=== PATIENT | male | born 1980 | race Caucasian/White ===

== ENCOUNTER 2016-08-24 21:04 | Inpatient (IN) | payer OTHER ==
[~2016-08-24] VITALS: Ht 165.1 cm; Wt 86.4 kg
[2016-08-24] MEDS ORDERED: SODIUM CHLORIDE 0.9% 1L BAG IV* STA (21:47)
[2016-08-24] MEDS ORDERED: ACETAMINOPHEN 325 MG TAB PO STA (21:47)
[2016-08-24 22:19] LABS: ADD SCAN DIFF NO
[2016-08-24 22:22] LABS: ADD UMIC YES; URINE BILIRUBIN (Dip) NEGATIVE (NEGATIVE); URINE BLOOD (Dip) 2+ (NEGATIVE); URINE COLOR LT. YELLOW (YELLOW); URINE GLUCOSE (Dip) NEGATIVE (NEGATIVE); URINE KETONES (Dip) NEGATIVE (NEGATIVE); URINE LEUKOCYTE ESTERASE (Dip) NEGATIVE (NEGATIVE); URINE NITRITE (Dip) NEGATIVE (NEGATIVE); URINE TOTAL PROTEIN (Dip) TRACE (NEGATIVE); URINE UROBILINOGEN (Dip) 1.0 E.U./dL (0.1-1.0)
[2016-08-24 22:23] LABS: ABNORMAL IP MESSAGE 1; BASOPHILS % 0.3 % (0.0-2.0); EOSINOPHILS % 0.2 % (0.0-7.0); HEMATOCRIT 29.2 % (42.0-52.0); HEMOGLOBIN 8.2 g/dl (14.0-18.0); LYMPHOCYTES # 1.4 10^3/ul (0.8-2.9); LYMPHOCYTES % 11.6 % (15.0-51.0); MEAN CORPUSCULAR HEMOGLOBIN 19.3 pg (29.0-33.0); MEAN CORPUSCULAR HGB CONC 28.1 g/dl (32.0-37.0); MEAN CORPUSCULAR VOLUME 68.9 fl (82.0-101.0); MEAN PLATELET VOLUME 9.2 fl (7.4-10.4); MONOCYTE # 0.5 10^3/ul (0.3-0.9); MONOCYTES % 4.3 % (0.0-11.0); NEUTROPHIL # 10.3 10^3/ul (1.6-7.5); NEUTROPHILS % 83.2 % (39.0-77.0); PLATELET COUNT 626 10^3/UL (140-415); RED BLOOD COUNT 4.24 10^6/ul (4.70-6.10); RED CELL DISTRIBUTION WIDTH 17.6 % (11.5-14.5); WHITE BLOOD COUNT 12.4 10^3/ul (4.8-10.8)
[2016-08-24 22:35] LABS: INR 1.15; PROTIME 14.7 Sec (12.2-14.2); PT RATIO 1.1
[2016-08-24 22:36] LABS: PARTIAL THROMBOPLASTIN TIME 37.7 Sec (25.0-35.0)
[2016-08-24 22:41] LABS: ALANINE AMINOTRANSFERASE 30 IU/L (13-69); ALBUMIN 4.2 g/dl (3.3-4.9); ALKALINE PHOSPHATASE 100 IU/L (42-121); ANION GAP 16 (8-16); ASPARTATE AMINO TRANSFERASE 21 IU/L (15-46); BILIRUBIN,INDIRECT 0.2 mg/dl (0-1.1); BILIRUBIN,TOTAL 0.2 mg/dl (0.2-1.3); BLOOD UREA NITROGEN 9 mg/dl (7-20); CALCIUM 8.8 mg/dl (8.4-10.2); CARBON DIOXIDE 22 mmol/L (21-31); CHLORIDE 106 mmol/L (97-110); CREATININE 0.76 mg/dl (0.61-1.24); GLUCOSE 90 mg/dl (70-220); POTASSIUM 4.1 mmol/L (3.5-5.1); SODIUM 140 mmol/L (135-144); TOTAL PROTEIN 8.4 g/dl (6.1-8.1)
[2016-08-24 22:55] LABS: TROPONIN-I < 0.012 ng/ml (0.00-0.12)
--- NOTE | 2016-08-24 23:07 | RADRPT ---
PROCEDURE: XR Chest. CLINICAL INDICATION: Possible sepsis. TECHNIQUE: Portable AP upright view of the chest was obtained. COMPARISON: None. FINDINGS: The cardiomediastinal silhouette is within normal limits. Diffuse opacification of the left lung is present with elevation of the left hemidiaphragm. Additional infiltrate within the right lung is p resent to a lesser degree. Left pleural thickening in the apical region is suspected without eviden ce of pleural effusion. There is no evidence of pneumothorax. The osseous structures are intact wi th no evidence for acute abnormality. RPTAT:HJJR IMPRESSION: Diffuse pulmonary infiltrates in the left greater than right lung concerning for pneumonia with left lung volume loss and elevation of the left hemidiaphragm as well as left pleural thickening. Left hemithorax findings may in part be chronic however, as no previous studies are available, follow-up evaluation is recommended. Physician Kenny Date Time Electronically viewed and signed by Physician Kenny on 08/24/2016 23:07 JR/
[2016-08-25 00:20] VITALS: TEMP 100.7
[2016-08-25] MEDS ORDERED: LEVOFLOXACIN 500MG/D5W (PMX) 100 ML IVPB ONE (00:30)
--- NOTE | 2016-08-25 00:58 | ERD ---
ER Documentation Chief Complaint Date/Time DATE: 08/25/16 TIME: 00:52 Chief Complaint FEVER BEGAN 2 HOURS,SOB, SOMETHING "STUCK IN THROAT", COUGH PHLEGM HPI This is a 35-year-old male presents to the ER with a cough for the last 4 months. Cough is severe and constant, productive in nature. Patient states that his cough is so severe that he vomits. Denies any hemoptysis. Patient states that he has had fevers, night sweats and chills as well. Patient admits to weight loss. He has lost over 20 pounds in the last 4 months. Patient states that he feels tired. Patient went to a local clinic where he received 3 different shots, he does not know what shots they are however they did not help his symptoms. Patient is now complaining of shortness of breath. He also admits to chest pain while coughing. Patient denies any recent travel he denies any leg pain or leg swelling. He denies any IV drug use. There are no sick contacts at home and he denies any smoking. ROS 12 point review of systems was done, all negative except per HPI. Allergies Allergies: Coded Allergies: No Known Drug Allergies (Verified Allergy, Unknown, 08/24/16) PMhx/Soc Medical and Surgical Hx: pt denies Medical Hx, pt denies Surgical Hx Hx Alcohol Use: No Hx Substance Use: No Hx Tobacco Use: No Smoking Status: Never smoker Physical Exam Vitals Vital Signs Date Time Temp Pulse Resp B/P Pulse Ox O2 Delivery O2 Flow Rate FiO2 08/25/16 00:20 100.7 98 21 132/76 95 Room Air 08/24/16 22:31 103.0 130 08/24/16 21:22 105.0 130 17 158/85 98 Physical Exam GENERAL: The patient is well developed and appropriate for usual state of health , in no apparent distress. HEENT: Atraumatic. Conjunctivae are pink. Pupils equal, round, and reactive to light. Extraocular muscles are grossly intact. Bilateral tympanic membranes are clear with no evidence of erythema, effusion or dulling of the light reflex. The oropharynx is clear with no erythema or exudates. NECK: C-spine is soft and supple. There is no cervical lymphadenopathy. CHEST: Clear to auscultation bilaterally. There are no rales, wheezes or rhonchi. No pleural friction rub, no tripoding. Able to speak in full sentences. HEART: Regular rate and rhythm. No murmurs, clicks, rubs or gallops. NEURO: Alert and oriented. SKIN: There is no apparent rash or petechia. The skin is warm and dry. No cyanosis Result Diagram: 08/24/16220408/24/162204 Results 24 hrs Laboratory Tests Test 08/24/16 22:05 White Blood Count 12.410^3/ul Red Blood Count 4.2410^6/ul Hemoglobin 8.2g/dl Hematocrit 29.2% Mean Corpuscular Volume 68.9fl Mean Corpuscular Hemoglobin 19.3pg Mean Corpuscular Hemoglobin Concent 28.1g/dl Red Cell Distribution Width 17.6% Platelet Count 42870^3/UL Mean Platelet Volume 9.2fl Neutrophils % 83.2% Lymphocytes % 11.6% Monocytes % 4.3% Eosinophils % 0.2% Basophils % 0.3% Nucleated Red Blood Cells % 0.0/100WBC Neutrophils # 10.310^3/ul Lymphocytes # 1.410^3/ul Monocytes # 0.510^3/ul Eosinophils # 0.010^3/ul Basophils # 0.010^3/ul Nucleated Red Blood Cells # 0.010^3/ul Prothrombin Time 14.7Sec Prothrombin Time Ratio 1.1 INR International Normalized Ratio 1.15 Activated Partial Thromboplast Time 37.7Sec Urine Color LT. YELLOW Urine Clarity CLEAR Urine pH 6.0 Urine Specific [place] 1.010 Urine Ketones NEGATIVE Urine Nitrite NEGATIVE Urine Bilirubin NEGATIVE Urine Urobilinogen 1.0 E.U./dL Urine Leukocyte Esterase NEGATIVE Urine Microscopic RBC 2-5/HPF Urine Microscopic WBC 0-2/HPF Urine Hemoglobin 2+ Urine Glucose NEGATIVE% Urine Total Protein TRACE Sodium Level 140mmol/L Potassium Level 4.1mmol/L Chloride Level 106mmol/L Carbon Dioxide Level 22mmol/L Anion Gap 16 Blood Urea Nitrogen 9mg/dl Creatinine 0.76mg/dl Glucose Level 90mg/dl Lactic Acid Level 1.8mmol/L Calcium Level 8.8mg/dl Total Bilirubin 0.2mg/dl Direct Bilirubin 0.00mg/dl Indirect Bilirubin 0.2mg/dl Aspartate Amino Transf (AST/SGOT) 21IU/L Alanine Aminotransferase (ALT/SGPT) 30IU/L Alkaline Phosphatase 100IU/L Troponin I < 0.012ng/ml Total Protein 8.4g/dl Albumin 4.2g/dl Globulin 4.20g/dl Albumin/Globulin Ratio 1.00 HIV (1&2) Antibody NEGATIVE Current Medications Medications (Trade) Dose Ordered Sig/Reba Route PRN Reason Start Time Stop Time Status Last Admin Dose Admin Sodium Chloride (NS) 2,670 ml BOLUS OVER 2 HOURS STAT IV* 08/24/16 21:47 08/24/16 21:51 DC 08/24/16 22:01 Acetaminophen 650 mg 650 mg ONCE STAT PO 08/24/16 21:47 08/24/16 21:51 DC 08/24/16 22:02 Levofloxacin/ Dextrose 100 ml @ 100 mls/hr ONCE ONCE IVPB 08/25/16 00:30 08/25/16 00:42 DC Azithromycin 250 ml @ 250 mls/hr ONCE ONCE IVPB 08/25/16 01:00 08/25/16 01:59 Ceftriaxone Sodium (Rocephin) 50 ml @ 100 mls/hr ONCE ONCE IVPB 08/25/16 01:00 08/25/16 01:29 08/25/16 00:50 Procedures/MDM EKG was done [address] elevation or t wave inversion. Differential diagnosis includes but is not limited to upper respiratory infection, bronchitis, pneumonia, asthma, COPD, AAA, GERD pulmonary embolism, pneumothorax, pneumomediastinum, foreign body aspiration. this is a 35-year- old male presents to the ER with a four-month history of coughing. Patient is febrile in the ER and has an extensive pneumonia. Patient would benefit from admission. Rocephin and azithromycin were started in the ER, fever was controlled in the ER as well. Patient is not hypoxic or in any respiratory distress. He will be admitted into the hospital for further management and care. Departure Diagnosis: Primary Impression: Pneumonia Condition: ANJANA Dooley Aug 25, 2016 00:58
[2016-08-25] MEDS ORDERED: AZITHROMYCIN 500MG/NS (PMX) 250 ML IVPB ONE (01:00)
[2016-08-25] MEDS ORDERED: CEFTRIAXONE 1 GM/50 ML (PMX) 50 ML IVPB ONE (01:00)
[2016-08-25] MEDS ORDERED: SOD CHLORIDE 0.9% 1,000 ML IV SCH (01:03)
--- NOTE | 2016-08-25 01:09 | EN ---
Date/Time of Note Date/Time of Note DATE: 08/25/16 TIME: 01:07 ER Progress Note I was called to evaluate this patient in ER 2. This is a 35-year-old male presents to the emergency room for fever and cough. This patient was found to have a left sided pneumonia. I did look at the chest x-ray and noted that this patient almost had a complete white out of the left lung. He was tachycardic, tachypnea, and did not have a fever with a leukocytosis. He did meet sepsis criteria. The patient was given 30 cc/kg of IV normal saline. This patient was started on Rocephin and azithromycin and will be placed in for admission at this time on to the [facility] floor. I have contacted our hospitalist Dr. Isabel who is okay with the plan of care at this time. This patient has a mean arterial pressure greater than 65 with no need for vasopressors at this time. Additional diagnoses: Sepsis Microcytic anemia Left lobe pneumonia Critical Care: Excluding all billable procedures Time: 38 minutes Treatments/Evaluations: Close monitoring and treatment of unstable vital signs, cardiorespiratory, and neurologic status, while maintaining tight balance of fluid, respiratory, and cardiac interventions. BRETT CORRAL DO Aug 25, 2016 01:08
[2016-08-25] MEDS ORDERED: ACETAMINOPHEN 325 MG TAB PO PRN (01:30)
[2016-08-25] MEDS ORDERED: ONDANSETRON 4 MG INJ IV PRN ×2 (01:30→03:00)
[2016-08-25 02:08] VITALS: BP 132/68; RESP 20
[2016-08-25 02:54] VITALS: Ht 165.1 cm; Wt 86.4 kg
[2016-08-25] MEDS ORDERED: VANCOMYCIN IV PER PHARMACY XX SCH (03:00)
[2016-08-25] MEDS ORDERED: CEPASTAT LOZENGE MT PRN (03:00)
[2016-08-25] MEDS: GUAIFENESIN 20 MG/ML 5ML CUP PO PRN (03:26)
[2016-08-25] MEDS: SOD CHLORIDE 0.9% 1,000 ML IV SCH ×3 (03:29→20:43)
[2016-08-25] MEDS: VANCOMYCIN 1 GM in NS 250 ML IVPB SCH ×3 (03:41→20:43)
[2016-08-25] MEDS: ALBUTEROL/IPRATROPIUM (NEB) 3 ML AMP HHN PRN ×2 (03:49→14:54)
[2016-08-25 04:31] LABS: ADD SCAN DIFF NO
[2016-08-25 04:37] LABS: ABNORMAL IP MESSAGE 1; BASOPHILS % 0.3 % (0.0-2.0); EOSINOPHILS % 0.2 % (0.0-7.0); HEMATOCRIT 27.7 % (42.0-52.0); HEMOGLOBIN 7.9 g/dl (14.0-18.0); LYMPHOCYTES # 1.2 10^3/ul (0.8-2.9); LYMPHOCYTES % 12.3 % (15.0-51.0); MEAN CORPUSCULAR HEMOGLOBIN 19.8 pg (29.0-33.0); MEAN CORPUSCULAR HGB CONC 28.5 g/dl (32.0-37.0); MEAN CORPUSCULAR VOLUME 69.4 fl (82.0-101.0); MEAN PLATELET VOLUME 9.1 fl (7.4-10.4); MONOCYTE # 0.7 10^3/ul (0.3-0.9); MONOCYTES % 6.8 % (0.0-11.0); NEUTROPHIL # 7.7 10^3/ul (1.6-7.5); NEUTROPHILS % 79.9 % (39.0-77.0); PLATELET COUNT 526 10^3/UL (140-415); RED BLOOD COUNT 3.99 10^6/ul (4.70-6.10); RED CELL DISTRIBUTION WIDTH 17.2 % (11.5-14.5); WHITE BLOOD COUNT 9.7 10^3/ul (4.8-10.8)
[2016-08-25 04:58] LABS: CREATININE 0.71 mg/dl (0.61-1.24); MAGNESIUM 1.9 mg/dl (1.7-2.5); PHOSPHORUS 3.3 mg/dl (2.5-4.9); POTASSIUM 3.3 mmol/L (3.5-5.1)
[2016-08-25] MEDS ORDERED: SOD CHLORIDE 0.9% 250 ML IV* ONE (04:58)
[2016-08-25 05:00] LABS: BARBITURATES Negative (NEGATIVE); BENZODIAZEPINES Negative (NEGATIVE); CANNABINOIDS Negative (NEGATIVE); COCAINE Negative (NEGATIVE); OPIATES Negative (NEGATIVE)
[2016-08-25] MEDS ORDERED: POTASSIUM CHLORIDE (SR) 20 MEQ TAB PO STA (05:50)
[2016-08-25] MEDS: PANTOPRAZOLE (EC) 40 MG TAB PO SCH (06:17)
[2016-08-25] MEDS: PIPER-TAZO 3.375 GM IV (PMX) 100 ML IVPB SCH ×3 (06:17→17:01)
--- NOTE | 2016-08-25 06:38 | HP ---
DATE OF ADMISSION: 08/25/2016 CHIEF COMPLAINT: Fever and cough. HISTORY OF PRESENT ILLNESS: This is a 35-year-old male with past medical history of hypertension in the past and bronchitis who has been having cough symptoms going on off and on for the last 5 month s and also subjective fevers for the last 24 hours. The patient states that his cough began 5 month s ago and he went to an urgent care clinic and was told he had bronchitis. He received a breathing treatment at that time but had to go back a week later because his symptoms did not improve, and he believes he got antibiotics the second time he went there. His symptoms improved, but he has been s till having a cough over the last few months off and on that became worse over the last 24 to 48 irma rs. He has been having positive yellow phlegm but negative for blood. He has also been having subj ective fevers over the last 24 hours. He felt "hot." Denies any sick contacts or recent travel. L ast time he had bronchitis was when he was 6 or 7 years old. No upper or lower GI bleeding. No abd ominal pain. No chest pain. No headaches or dizziness or loss of consciousness presently. The pat ignacia caba also says he has been having night sweats for the last 5 months, and he has lost 15 pounds unintentionally over the last 5 months as well. For example, 5 months ago he weighed 204, and now he weighs 189. His appetite has been "okay," however. When he came into the ER today, he had a fever of 103.0, and his chest x-ray did show signs of positive infiltrates in the left greater than the right lung concerning for pneumonia. PAST MEDICAL HISTORY: As stated above. ALLERGIES: NO KNOWN DRUG ALLERGIES. MEDICATIONS AT HOME: None. PAST SURGICAL HISTORY: None. FAMILY HISTORY: Father had hypertension. SOCIAL HISTORY: Occasional alcohol use. PHYSICAL EXAMINATION: VITAL SIGNS: T-max 103.0, pulse of 92 to 130, respirations 18 to 21, blood pressure is 132/68, satu rating at 99% on room air. GENERAL: The patient is lying in bed, answering questions appropriately. Appears slightly lethargi c but alert. HEENT: Pupils equal, round, react to light. Extraocular muscles intact. NECK: Supple, no thyromegaly. LUNGS: Mild rales bilaterally, left greater than right. No wheezes. CARDIOVASCULAR: S1, S2 heard. No rubs or gallops. ABDOMEN: Soft, nontender, nondistended. Normal bowel sounds. No rebound or guarding. MUSCULOSKELETAL: No lower extremity edema bilaterally. NEUROLOGIC: No focal deficits. LABORATORY DATA: WBC 12.4, hemoglobin 8.2, hematocrit 29.2, platelets of 626. His MCV is 68.9. Hi s repeat CBC shows hemoglobin of 7.9 this morning. Sodium 146, potassium 3.3, chloride 113, CO2 22, BUN of 6, creatinine 0.7, glucose 93. U-tox is negative. UA shows 2+ hemoglobin, otherwise negati ve nitrites, negative leukocyte esterase. HIV antibody test is negative. IMAGING: Again, chest x-ray shows diffuse pulmonary infiltrates in the left greater than the right lung concerning for pneumonia with left lung volume loss and elevation of left hemidiaphragm as well as left pleural thickening. ASSESSMENT AND PLAN: A 35-year-old male coming in with signs of left-sided pneumonia and positive f bonilla, leukocytosis, anemia, night sweats, and weight loss. 1. It looks like sepsis, again secondary most likely to pneumonia given fever and elevated white bl ood cell count. He was also tachycardic on admission. We will admit the patient to med/surg floor, put him on broad-spectrum antibiotics, follow final culture results. Tylenol p.r.n. pain and fever s, IV fluids as well. Check CBC, basic metabolic panel every morning. Check TSH, A1c, lipid panel as well. 2. Anemia, unclear source. We will check an iron profile, given his low MCV. We will give him 1 u nit of PRBC transfusion since his hemoglobin is 7.9. He denies any upper or lower GI bleeding as we ll. 3. Night sweats and weight loss of unclear source. Given the fact that all these symptoms occurred over the last 5 months including the coughing symptoms, there is a concern of possible malignancy, although it is still kind of low on the differential. In any event, we will check tumor markers CA 19-9, CA-125, alpha fetoprotein, and carcinoembryonic antigen. If there are any abnormalities, cons ider hematology/oncology consult. 4. GI prophylaxis. PPI. 5. Deep venous thrombosis prophylaxis, heparin subcutaneously. Dictated By: JORDAN LIZAMA Conf#: [id number] DID#: [id number]
[2016-08-25 08:06] VITALS: BP 127/68; RESP 18
[2016-08-25] MEDS: ACETAMINOPHEN 325 MG TAB PO PRN (11:03)
[2016-08-25 11:09] LABS: IRON 10 ug/dl (35-150)
[2016-08-25 11:22] LABS: TOTAL IRON BINDING CAPACITY 207 ug/dl (241-421)
[2016-08-25 11:39] LABS: CANCER ANTIGEN 125 68.9 U/ml (0.0-35.0); CARCINOEMBRYONIC ANTIGEN 1.3 ng/ml (0.0-5.0)
[2016-08-25 11:43] LABS: CANCER ANTIGEN 19-9 6.5 U/ml (0.0-37.0)
--- NOTE | 2016-08-25 13:56 | CONS ---
DATE OF ADMISSION: 08/25/2016 DATE OF CONSULTATION: 08/25/2016 TYPE OF CONSULTATION: Infectious Disease. REASON FOR CONSULTATION: Antibiotic management. HISTORY OF PRESENT ILLNESS: Isaac Plascencia is a 35-year-old male admitted on the with fever and cough. His past problems include: 1. Hypertension. 2. History of bronchitis. He has been having cough symptoms for the last 5 months with subjective fevers for 24 hours. He was told he had bronchitis 5 months ago. He received antibiotics. His sym ptoms improved but then he became worse over the last 24 to 48 hours. He has positive sputum and arthur bjective fevers. In the ER, he had a temperature of 103. Chest x-ray was positive for infiltrates in the left and right lungs consistent with pneumonia. He has lost about 15 pounds over the last 5 months. On admission, his white count was 12.4, H and H of 8.2 and 29.2, platelet count 626,000. H is BUN and creatinine are 6/0.7. Urinalysis shows 2+ hemoglobin, negative nitrite, negative leukocy te esterase. HIV antibody is negative. Chest x-ray shows diffuse pulmonary infiltrates, left great er than right. PAST MEDICAL HISTORY: Operations as outlined. FAMILY HISTORY: Noncontributory. SOCIAL HISTORY: He has occasional alcohol use. He does not smoke presently or abuse drugs. ALLERGIES: NONE TO PENICILLIN, SULFA OR FOODS. MEDICATIONS: Per chart. REVIEW OF SYSTEMS: As per HPI. PHYSICAL EXAMINATION: GENERAL: The patient is a well-developed, well-nourished male who is alert, responsive, in no acute distress. VITAL SIGNS: T-max 103 degrees. SKIN: Without generalized rash. HEENT: Within normal limits. NECK: Supple. LYMPH NODES: None palpable. CHEST: Decreased breath sounds at the bases. HEART: Without murmur or gallop. ABDOMEN: Soft, nontender, without organosplenomegaly or masses. EXTREMITIES: Without cyanosis, clubbing, or edema. RECTAL AND GENITAL: Exams deferred. NEUROLOGIC: No focal neurological abnormalities. IMPRESSION AND PLAN: The patient shows diffuse pulmonary infiltrates. His urine cultures are negat otis. He was started on Zosyn and vancomycin. He should get a sputum culture. We will continue him on this regimen. I will dictate my findings to the hospitalist. Dictated By: ELIZABETH DOWD MD, JD/SADI MOORE: 08/25/2016 10:37:01 Conf#: [id number] DID#: [id number]
--- NOTE | 2016-08-25 14:31 | CONS ---
Date/Time of Note Date/Time of Note DATE: 08/25/16 TIME: 14:27 Assessment/Plan Assessment/Plan Additional Assessment/Plan Chest x-ray was reviewed which is showing findings of extensive pneumonia involving the left lung there is a possibility of empyema as well. 1. Patient admitted for severe pneumonia currently on appropriate antibiotic coverage. 2. Obtain CT scan of chest without contrast. 3. Anemia. Continue current treatment. Once the CT scan is done I will review it and make further recommendations. Consultation Date/Type/Reason Admit Date/Time Aug 25, 2016 at 01:03 Date of Consultation: Aug 25, 2016 Reason for Consultation Pulmonary consultations requested for evaluation of pneumonia. History of presenting any; patient is a 34-year-old male who came into the emergency room today with a several week history of cough chest congestion and mild shortness of breath. Patient also has been treated on outpatient basis with various antibiotics for recurrent bronchitis. Upon evaluation had a chest x-ray was done which is showing extensive infiltrates involving the left lung with some volume loss on the left side as well as pleural thickening. Patient denies recent travel or any chronic respiratory illnesses. Past medical history; no history of any illnesses. Medications; reviewed. Allergies; none. Social history; no history of any alcohol tobacco or drug abuse. Family history; patient is . Most of any illnesses in the family. He has 2 children. 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 Review of systems; denies any headache, seizures. Any sinus symptoms postnasal drip dysphagia odynophagia or sore throat. Denies any night sweats. Denies any chest pain. Complains of cough with very scant sputum production. Denies hemoptysis. Denies any abdominal pain, nausea vomiting. Denies any melena, hematochezia. Any bleeding tendencies. Patient has intentionally lost weight over the last several months. Denies any skin changes, any arthritis symptoms. General exam; young male awake alert currently in no distress. Social History Smoking Status: Never smoker Exam/Review of Systems Vital Signs Vitals Vital Signs Date Time Temp Pulse Resp B/P Pulse Ox O2 Delivery O2 Flow Rate FiO2 08/25/16 08:06 102.5 101 18 127/68 96 08/25/16 03:49 21 08/25/16 01:28 Room Air Intake and Output 08/24/16 08/24/16 08/25/16 15:00 23:00 07:00 Intake Total 3990 ml Output Total 2400 ml Balance 1590 ml Exam HEENT exam is; supple neck, no JVD. No lymphadenopathy midline trachea. No thyromegaly. Patient has good dentition. Pupils are midsize and reactive to light bilaterally. Extraocular movements are intact. Chest examination; diminished breath sounds entire left lung. Right lung is clear to auscultation S1-S2 audible, no murmurs. Regular rhythm. Abdomen examination; soft, nontender. No organomegaly. Bowel sounds. Extremity examination; no peripheral edema. No clubbing. Pulses 2+. [employer] examination; no focal deficit. Results Result Diagram: 08/25/16 0356 08/25/16 0356 Results 24 hrs Laboratory Tests Test 08/24/16 22:05 08/25/16 00:40 08/25/16 03:15 08/25/16 03:56 White Blood Count 12.4 H 9.7 # Red Blood Count 4.24 L 3.99 L Hemoglobin 8.2 L 7.9 L Hematocrit 29.2 L 27.7 L Mean Corpuscular Volume 68.9 L 69.4 L Mean Corpuscular Hemoglobin 19.3 L 19.8 L Mean Corpuscular Hemoglobin Concent 28.1 L 28.5 L Red Cell Distribution Width 17.6 H 17.2 H Platelet Count 626 H 526 H Mean Platelet Volume 9.2 9.1 Neutrophils % 83.2 H 79.9 H Lymphocytes % 11.6 L 12.3 L Monocytes % 4.3 6.8 Eosinophils % 0.2 0.2 Basophils % 0.3 0.3 Nucleated Red Blood Cells % 0.0 0.0 Neutrophils # 10.3 H 7.7 H Lymphocytes # 1.4 1.2 Monocytes # 0.5 0.7 Eosinophils # 0.0 0.0 Basophils # 0.0 0.0 Nucleated Red Blood Cells # 0.0 0.0 Prothrombin Time 14.7 H Prothrombin Time Ratio 1.1 INR International Normalized Ratio 1.15 Activated Partial Thromboplast Time 37.7 H Urine Color LT. YELLOW Urine Clarity CLEAR Urine pH 6.0 Urine Specific [place] 1.010 Urine Ketones NEGATIVE Urine Nitrite NEGATIVE Urine Bilirubin NEGATIVE Urine Urobilinogen 1.0 E.U./dL Urine Leukocyte Esterase NEGATIVE Urine Microscopic RBC 2-5 Urine Microscopic WBC 0-2 Urine Hemoglobin 2+ H Urine Glucose NEGATIVE Urine Total Protein TRACE Sodium Level 140 146 H Potassium Level 4.1 3.3 L Chloride Level 106 113 H Carbon Dioxide Level 22 22 Anion Gap 16 14 Blood Urea Nitrogen 9 6 L Creatinine 0.76 0.71 Glucose Level 90 93 Lactic Acid Level 1.8 1.2 1.7 Calcium Level 8.8 8.0 L Total Bilirubin 0.2 Direct Bilirubin 0.00 Indirect Bilirubin 0.2 Aspartate Amino Transf (AST/SGOT) 21 Alanine Aminotransferase (ALT/SGPT) 30 Alkaline Phosphatase 100 Troponin I < 0.012 Total Protein 8.4 H Albumin 4.2 Globulin 4.20 H Albumin/Globulin Ratio 1.00 HIV (1&2) Antibody NEGATIVE Urine Opiates Screen Negative Urine Barbiturates Negative Urine Amphetamines Screen Negative Urine Benzodiazepines Screen Negative Urine Cocaine Screen Negative Urine Cannabinoids Negative Hemoglobin A1c 5.4 Phosphorus Level 3.3 Magnesium Level 1.9 Test 08/25/16 09:55 Iron Level 10 L Total Iron Binding Capacity 207 L Percent Iron Saturation 5 L Alpha Fetoprotein 1.17 Carcinoembryonic Antigen 1.3 CA 19-9 Antigen 6.5 CA 125 Antigen 68.9 H Medications Medications Current Medications Piperacillin Sod/ Tazobactam Sod (Zosyn 3.375gm/ 100 ml (Pmx)) 100 ml @ 200 mls /hr Q6 IVPB Last administered on 08/25/16 13:52; Admin Dose 200 MLS/HR; Start 08/25/16 at 06:00 Pantoprazole (Protonix Tab) 40 mg DAILY@06 PO Last administered on 08/25/16 06: 17; Admin Dose 40 MG; Start 08/25/16 at 06:00 Acetaminophen (Tylenol Tab) 650 mg Q6H PRN PO PAIN AND OR ELEVATED TEMP Last administered on 08/25/16 11:03; Admin Dose 650 MG; Start 08/25/16 at 03:00 Ondansetron HCl 4 mg 4 mg Q6H PRN IV NAUSEA AND/OR VOMITING; Start 08/25/16 at 03:00 Sodium Chloride (NS) 1,000 ml @ 100 mls/hr Q10H IV Last administered on 03:29; Admin Dose 100 MLS/HR; Start 08/25/16 at 03:00 Phenol (Cepastat Lozenge) 1 lozenge Q1H PRN MT SORE THROAT Last administered on 08/25/16 03:27; Admin Dose 1 LOZENGE; Start 08/25/16 at 03:00 Guaifenesin 200 mg 200 mg Q4H PRN PO COUGH Last administered on 08/25/16 03:26 ; Admin Dose 200 MG; Start 08/25/16 at 03:00 Vancomycin HCl 250 ml @ 125 mls/hr Q8H IVPB Last administered on 08/25/16 03: 41; Admin Dose 125 MLS/HR; Start 08/25/16 at 04:00 Ferric Sodium Gluconate Complex/ Sodium Chloride (Ferrlecit/NS) 110 ml @ 100 mls/hr Q24H IVPB ; Start 08/25/16 at 14:00; Stop 08/27/16 at 15:05 YIFAN GAN 4, 2017 14:30
[2016-08-25] MEDS: SOD FERRIC GLUC COMPLX 125 MG in SOD CHLORIDE 0.9% 100 ML IVPB SCH (15:14)
[2016-08-25 19:33] VITALS: BP 122/67; RESP 19
[2016-08-26] MEDS: PIPER-TAZO 3.375 GM IV (PMX) 100 ML IVPB SCH ×3 (00:33→11:35)
[2016-08-26] MEDS: GUAIFENESIN 20 MG/ML 5ML CUP PO PRN ×2 (00:38→21:19)
[2016-08-26 04:13] LABS: ADD SCAN DIFF NO
[2016-08-26 04:17] LABS: BASOPHILS % 0.4 % (0.0-2.0); EOSINOPHILS # 0.1 10^3/ul (0.0-0.5); EOSINOPHILS % 0.5 % (0.0-7.0); HEMATOCRIT 27.1 % (42.0-52.0); LYMPHOCYTES # 1.5 10^3/ul (0.8-2.9); LYMPHOCYTES % 14.4 % (15.0-51.0); MEAN CORPUSCULAR HEMOGLOBIN 20.5 pg (29.0-33.0); MEAN CORPUSCULAR HGB CONC 29.5 g/dl (32.0-37.0); MEAN CORPUSCULAR VOLUME 69.5 fl (82.0-101.0); MEAN PLATELET VOLUME 9.3 fl (7.4-10.4); MONOCYTE # 0.7 10^3/ul (0.3-0.9); MONOCYTES % 6.6 % (0.0-11.0); NEUTROPHILS % 77.8 % (39.0-77.0); PLATELET COUNT 538 10^3/UL (140-415); RED CELL DISTRIBUTION WIDTH 17.9 % (11.5-14.5); WHITE BLOOD COUNT 10.3 10^3/ul (4.8-10.8)
[2016-08-26 04:35] LABS: ALBUMIN 3.5 g/dl (3.3-4.9); BILIRUBIN,INDIRECT 0.4 mg/dl (0-1.1); BILIRUBIN,TOTAL 0.4 mg/dl (0.2-1.3); CALCIUM 8.4 mg/dl (8.4-10.2); CREATININE 0.72 mg/dl (0.61-1.24); POTASSIUM 3.9 mmol/L (3.5-5.1)
[2016-08-26 04:36] LABS: CHOL/HDL RATIO 4.9 RATIO; MAGNESIUM 1.8 mg/dl (1.7-2.5); PHOSPHORUS 3.9 mg/dl (2.5-4.9)
[2016-08-26] MEDS: VANCOMYCIN 1 GM in NS 250 ML IVPB SCH (05:12)
[2016-08-26] MEDS: PANTOPRAZOLE (EC) 40 MG TAB PO SCH (05:12)
[2016-08-26 07:50] VITALS: BP 131/70; RESP 18
[2016-08-26] MEDS: SOD CHLORIDE 0.9% 1,000 ML IV SCH ×2 (07:53→18:07)
--- NOTE | 2016-08-26 08:38 | RADRPT ---
PROCEDURE: CT CHEST WITHOUT CONTRAST CLINICAL INDICATION: Shortness of breath TECHNIQUE: Volumetrically acquired images of the thorax obtained without intravenous contrast were reformatted in the axial, coronal, and sagittal planes. CTDI = 15.2 mGy; DLP = 624 mGy-cm. One or more of the following dose reduction technique were used: Automatic exposure control, adjustment of the mA and/or kV according to patient size, and use of iterative reconstruction technique. COMPARISON: 08/24/2016. FINDINGS: LOWER NECK AND CHEST WALL: Normal. AIRWAYS: The trachea and large airways are normal. Diffuse bronchial wall thickening and bronchiec tasis is seen. LUNGS: There are scattered areas of centrilobular micronodules, tree in bud nodularity, as well as a reas of bronchocentric consolidation seen throughout both lungs. The left upper lobe demonstrates c ystic areas of scarring. Scattered cavities and cysts are also seen in the left lower lobe. There is a 2.8 cm area of ground-glass seen in the in the right lower lobe (series 5 image 88). PLEURA: Unremarkable. No pleural thickening or effusions. MEDIASTINUM: No mediastinal mass. LYMPH NODES: Reactive mediastinal lymph nodes are seen. CARDIAC: The heart size is normal. No pericardial effusion or thickening. VASCULAR: The main pulmonary measures up to 33 mm. OSSEOUS: No suspicious osseous lesions. Limited evaluation of the upper abdomen is unremarkable. IMPRESSION: 1. Diffuse bronchial and bronchiolar wall thickening with mild bronchiectasis, centrilobular nodules , tree in bud nodularity, scattered areas of cavitation, and left upper lobe cavitary scarring is co nsistent with acute on chronic bronchitis/bronchiolitis/bronchopneumonia. Findings could be seen wi th tuberculous and non tuberculous mycobacteria, fungal, or other atypical organisms. There are reac tive mediastinal lymph nodes. 2. Enlargement of the main pulmonary artery may suggest pulmonary arterial hypertension.. RPTAT:PP .Jeyson Malloy MD, Date Time Electronically viewed and signed by .Jeyson Malloy MD, on 08/26/2016 08:37 .V/
[2016-08-26] MEDS ORDERED: VANCOMYCIN 1.25 GM in SOD CHLORIDE 0.9% 250 ML IVPB SCH (10:00)
--- NOTE | 2016-08-26 12:01 | CONS ---
Date/Time of Note Date/Time of Note DATE: 08/26/16 TIME: 11:59 Assessment/Plan Assessment/Plan Additional Assessment/Plan CT chest was reviewed from yesterday which is highly suggestive of miliary tuberculosis. Assessment recommendations; Patient admitted for couple of weeks to a month long history of chronic cough weight loss low-grade fever finding on CT scan chest are highly suggestive of miliary tuberculosis. Recommend initiation of anti-tuberculosis medications. Place a PPD. Sputum AFB stain is pending. Consultation Date/Type/Reason Admit Date/Time Aug 25, 2016 at 01:03 Initial Consult Date 08/25/16 Type of Consultation: Pulmonary 24 HR Interval Summary Free Text/Dictation Patient condition stable. Still complains of chest congestion and low-grade fever off and on. Denies any chest pain. Felisa; young male, awake alert currently in no distress. Exam/Review of Systems Vital Signs Vitals Vital Signs Date Time Temp Pulse Resp B/P Pulse Ox O2 Delivery O2 Flow Rate FiO2 08/26/16 07:50 97.5 94 18 131/70 99 08/26/16 02:39 2.0 08/26/16 02:30 21 08/25/16 01:28 Room Air Intake and Output 08/25/16 08/25/16 08/26/16 15:00 23:00 07:00 Intake Total 1670 ml 1750 ml Output Total 1900 ml Balance -230 ml 1750 ml Exam HEENT exam is; supple neck, no JVD. No lymphadenopathy midline trachea. No thyromegaly. Pharynx is clear. Chest examined; diminished but clear vessel. S1-S2 audible, no murmurs. Abdomen examination; soft, nondistended. No organomegaly. Bowel sounds are audible. Extremity examination; no peripheral edema. No clubbing. CHARGING CRANE OPERATOR examination; no focal deficit. Results Result Diagram: 08/26/16 0342 08/26/16 0342 Results 24 hrs Laboratory Tests Test 08/26/16 03:42 White Blood Count 10.3 Red Blood Count 3.90 L Hemoglobin 8.0 L Hematocrit 27.1 L Mean Corpuscular Volume 69.5 L Mean Corpuscular Hemoglobin 20.5 L Mean Corpuscular Hemoglobin Concent 29.5 L Red Cell Distribution Width 17.9 H Platelet Count 538 H Mean Platelet Volume 9.3 Neutrophils % 77.8 H Lymphocytes % 14.4 L Monocytes % 6.6 Eosinophils % 0.5 Basophils % 0.4 Nucleated Red Blood Cells % 0.0 Neutrophils # 8.0 H Lymphocytes # 1.5 Monocytes # 0.7 Eosinophils # 0.1 Basophils # 0.0 Nucleated Red Blood Cells # 0.0 Sodium Level 140 Potassium Level 3.9 Chloride Level 108 Carbon Dioxide Level 22 Anion Gap 14 Blood Urea Nitrogen 5 L Creatinine 0.72 Glucose Level 80 Calcium Level 8.4 Phosphorus Level 3.9 Magnesium Level 1.8 Total Bilirubin 0.4 Direct Bilirubin 0.00 Indirect Bilirubin 0.4 Aspartate Amino Transf (AST/SGOT) 15 Alanine Aminotransferase (ALT/SGPT) 26 Alkaline Phosphatase 82 Total Protein 7.0 # Albumin 3.5 Globulin 3.50 H Albumin/Globulin Ratio 1.00 Triglycerides Level 64 Cholesterol Level 79 L LDL Cholesterol, Calculated 50 HDL Cholesterol 16 L Cholesterol/HDL Ratio 4.9 Vancomycin Level Trough 7.6 L Medications Medications Current Medications Piperacillin Sod/ Tazobactam Sod (Zosyn 3.375gm/ 100 ml (Pmx)) 100 ml @ 200 mls /hr Q6 IVPB Last administered on 08/26/16 11:35; Admin Dose 200 MLS/HR; Start 08/25/16 at 06:00 Pantoprazole (Protonix Tab) 40 mg DAILY@06 PO Last administered on 08/26/16 05: 12; Admin Dose 40 MG; Start 08/25/16 at 06:00 Acetaminophen (Tylenol Tab) 650 mg Q6H PRN PO PAIN AND OR ELEVATED TEMP Last administered on 08/25/16 11:03; Admin Dose 650 MG; Start 08/25/16 at 03:00 Ondansetron HCl 4 mg 4 mg Q6H PRN IV NAUSEA AND/OR VOMITING; Start 08/25/16 at 03:00 Sodium Chloride (NS) 1,000 ml @ 100 mls/hr Q10H IV Last administered on 07:53; Admin Dose 100 MLS/HR; Start 08/25/16 at 03:00 Phenol (Cepastat Lozenge) 1 lozenge Q1H PRN MT SORE THROAT Last administered on 08/25/16 03:27; Admin Dose 1 LOZENGE; Start 08/25/16 at 03:00 Guaifenesin 200 mg 200 mg Q4H PRN PO COUGH Last administered on 08/26/16 00:38 ; Admin Dose 200 MG; Start 08/25/16 at 03:00 Ferric Sodium Gluconate Complex 125 mg/Sodium Chloride 110 ml @ 100 mls/hr Q24H IVPB Last administered on 08/25/16 15:14; Admin Dose 100 MLS/HR; Start 08/25/16 at 14:00; Stop 08/27/16 at 15:05 Vancomycin HCl/ Sodium Chloride (Vancocin/NS) 250 ml @ 83.333 mls/ hr Q8H IVPB Last administered on 08/26/16 10:13; Admin Dose 83.333 MLS/HR; Start 08/26/16 at 10:00 YIFAN GAN 5, 2017 12:01
[2016-08-26] MEDS ORDERED: LEVOFLOXACIN 500 MG TAB PO ONE (13:00)
[2016-08-26] MEDS: ISONIAZID 300 MG TAB PO SCH (14:26)
[2016-08-26] MEDS: SOD FERRIC GLUC COMPLX 125 MG in SOD CHLORIDE 0.9% 100 ML IVPB SCH (14:26)
[2016-08-26] MEDS: RIFAMPIN 300 MG CAP PO SCH (14:27)
[2016-08-26] MEDS: ETHAMBUTOL 400 MG TAB PO SCH (14:27)
[2016-08-26] MEDS: PYRAZINAMIDE 500 MG TAB PO SCH (14:33)
--- NOTE | 2016-08-26 14:37 | PN ---
Date/Time of Note Date/Time of Note DATE: 08/26/16 TIME: 14:34 Assessment/Plan VTE Prophylaxis VTE Prophylaxis Intervention: SCD's Lines/Catheters [facility] Saline Lock Urinary Cath still in place: No Assessment/Plan Chief Complaint/Hosp Course Assessment and plan 1. Sepsis with pneumonia with high suspicion of tuberculosis. CT scan of the chest clinical picture of tuberculosis. Follow-up on AFB. ID following. Recommendation ABX per ID and pulmonary. 2. Iron deficiency anemia. Continue iron supplement. DVT Provox: Early ambulation For prophylaxis: Heparin Disposition plan: Follow-up on AFB. Continue on antibiotics per ID recommendations. Discussed plan of care with Dr. Mckeon Problems: Subjective 24 Hr Interval Summary Free Text/Dictation Reports better breathing but still wheezing Exam/Review of Systems Vital Signs Vitals Vital Signs Date Time Temp Pulse Resp B/P Pulse Ox O2 Delivery O2 Flow Rate FiO2 08/26/16 07:50 97.5 94 18 131/70 99 08/26/16 02:39 2.0 08/26/16 02:30 21 08/25/16 01:28 Room Air Intake and Output 08/25/16 08/25/16 08/26/16 15:00 23:00 07:00 Intake Total 1670 ml 1750 ml Output Total 1900 ml Balance -230 ml 1750 ml Exam Constitutional: alert, oriented Psych: nl mood/affect Head: normocephalic Neck: supple, No jvd Respiratory: wheezing Cardiovascular: regular rate and rhythm Gastrointestinal: non-tender, soft Neurological: LAYDOWN MACHINE OPERATOR II-XII intact, nl mental status, nl speech Skin: nl turgor Results Result Diagram: 08/26/16 0342 08/26/16 0342 Results 24 hrs Laboratory Tests Test 08/25/16 23:00 08/26/16 03:42 Stool Occult Blood NEGATIVE White Blood Count 10.3 Red Blood Count 3.90 L Hemoglobin 8.0 L Hematocrit 27.1 L Mean Corpuscular Volume 69.5 L Mean Corpuscular Hemoglobin 20.5 L Mean Corpuscular Hemoglobin Concent 29.5 L Red Cell Distribution Width 17.9 H Platelet Count 538 H Mean Platelet Volume 9.3 Neutrophils % 77.8 H Lymphocytes % 14.4 L Monocytes % 6.6 Eosinophils % 0.5 Basophils % 0.4 Nucleated Red Blood Cells % 0.0 Neutrophils # 8.0 H Lymphocytes # 1.5 Monocytes # 0.7 Eosinophils # 0.1 Basophils # 0.0 Nucleated Red Blood Cells # 0.0 Sodium Level 140 Potassium Level 3.9 Chloride Level 108 Carbon Dioxide Level 22 Anion Gap 14 Blood Urea Nitrogen 5 L Creatinine 0.72 Glucose Level 80 Calcium Level 8.4 Phosphorus Level 3.9 Magnesium Level 1.8 Total Bilirubin 0.4 Direct Bilirubin 0.00 Indirect Bilirubin 0.4 Aspartate Amino Transf (AST/SGOT) 15 Alanine Aminotransferase (ALT/SGPT) 26 Alkaline Phosphatase 82 Total Protein 7.0 # Albumin 3.5 Globulin 3.50 H Albumin/Globulin Ratio 1.00 Triglycerides Level 64 Cholesterol Level 79 L LDL Cholesterol, Calculated 50 HDL Cholesterol 16 L Cholesterol/HDL Ratio 4.9 Vancomycin Level Trough 7.6 L Medications Medications Current Medications Pantoprazole (Protonix Tab) 40 mg DAILY@06 PO Last administered on 08/26/16 05: 12; Admin Dose 40 MG; Start 08/25/16 at 06:00 Acetaminophen (Tylenol Tab) 650 mg Q6H PRN PO PAIN AND OR ELEVATED TEMP Last administered on 08/25/16 11:03; Admin Dose 650 MG; Start 08/25/16 at 03:00 Ondansetron HCl 4 mg 4 mg Q6H PRN IV NAUSEA AND/OR VOMITING; Start 08/25/16 at 03:00 Sodium Chloride (NS) 1,000 ml @ 100 mls/hr Q10H IV Last administered on 07:53; Admin Dose 100 MLS/HR; Start 08/25/16 at 03:00 Phenol (Cepastat Lozenge) 1 lozenge Q1H PRN MT SORE THROAT Last administered on 08/25/16 03:27; Admin Dose 1 LOZENGE; Start 08/25/16 at 03:00 Guaifenesin 200 mg 200 mg Q4H PRN PO COUGH Last administered on 08/26/16 00:38 ; Admin Dose 200 MG; Start 08/25/16 at 03:00 Ferric Sodium Gluconate Complex/ Sodium Chloride (Ferrlecit/NS) 110 ml @ 100 mls/hr Q24H IVPB Last administered on 08/26/16 14:26; Admin Dose 100 MLS/HR; Start 08/25/16 at 14:00; Stop 08/27/16 at 15:05 Isoniazid (Isoniazid) 300 mg DAILY PO Last administered on 08/26/16 14:26; Admin Dose 300 MG; Start 08/26/16 at 13:00 Rifampin (Rifampin) 600 mg DAILY PO Last administered on 08/26/16 14:27; Admin Dose 600 MG; Start 08/26/16 at 13:00 Ethambutol HCl (Myambutol) 400 mg DAILY PO Last administered on 08/26/16 14:27 ; Admin Dose 400 MG; Start 08/26/16 at 13:00 Levofloxacin (Levaquin) 500 mg DAILY@06 PO ; Start 08/27/16 at 06:00 Pyrazinamide (Pyrazinamide) 2,000 mg DAILY PO Last administered on 08/26/16 14: 33; Admin Dose 2,000 MG; Start 08/26/16 at 14:00 JOSE APODACA Aug 26, 2016 14:37
[2016-08-26 19:29] VITALS: BP 127/70; RESP 18
[2016-08-26 21:13] VITALS: RESP 18
[2016-08-27] MEDS: ACETAMINOPHEN 325 MG TAB PO PRN ×2 (00:10→08:59)
[2016-08-27] MEDS: SOD CHLORIDE 0.9% 1,000 ML IV SCH ×2 (05:34→14:58)
[2016-08-27] MEDS: LEVOFLOXACIN 500 MG TAB PO SCH (05:35)
[2016-08-27] MEDS: GUAIFENESIN 20 MG/ML 5ML CUP PO PRN (05:35)
[2016-08-27] MEDS: PANTOPRAZOLE (EC) 40 MG TAB PO SCH (05:35)
--- NOTE | 2016-08-27 07:23 | PN ---
DATE: 08/26/2016 SUBJECTIVE: No acute changes. The patient is alert, feels good. Denies pain, discomfort. He had fever yesterday, but not overnight. WBC today 10.3, neutrophils 77.8, BUN 5, creatinine 0.72. MICROBIOLOGY: Blood and urine cultures remain negative. ANTIMICROBIALS: The patient is on vancomycin and Zosyn. Status post Zithromax, Rocephin. DIAGNOSTICS: CT of the chest revealed diffuse bronchial and bronchiolar ____ thickening with mild b ronchiectasis, central lobular nodules, scattered areas of cavitation and left upper lobe cavitary s carring. PHYSICAL EXAMINATION: GENERAL: This is a well-nourished, well-developed, middle-aged man who is awake, in no dis tress. HEENT: Head atraumatic, normocephalic. Sclerae anicteric. Buccal mucosa pink. NECK: Supple. CHEST: Rise symmetrical. Breath sounds clear, diminished to bases. HEART: S1, S2. ABDOMEN: Soft, bowel tones present. EXTREMITIES: Without cyanosis. ASSESSMENT: 1. Pneumonia with high suspicion of miliary tuberculosis as per radiographic findings and discussio n with pulmonary team. 2. Hypertension. 3. Systemic inflammatory response syndrome. PLAN: We are going to initiate patient on anti-TB medications. Await sputum for AFB, place PPD, se nd serology for cocci. Discontinue antibiotics and start patient on oral Levaquin. Above was discu ssed with Dr. Huizar. Above was discussed with staff. Dictated By: KATERYNA QUIÑONES TIE TAPE MACHINE OPERATOR for ELIZABETH FOWLER/SADI Conf#: [id number] DID#: [id number]
[2016-08-27] MEDS: PYRAZINAMIDE 500 MG TAB PO SCH (08:15)
[2016-08-27] MEDS: ETHAMBUTOL 400 MG TAB PO SCH (08:15)
[2016-08-27] MEDS: ISONIAZID 300 MG TAB PO SCH (08:15)
[2016-08-27] MEDS: RIFAMPIN 300 MG CAP PO SCH (08:15)
[2016-08-27 08:28] VITALS: BP 132/71; RESP 19
--- NOTE | 2016-08-27 10:40 | CONS ---
Date/Time of Note Date/Time of Note DATE: 08/27/16 TIME: 10:39 Assessment/Plan Assessment/Plan Additional Assessment/Plan Assessment recommendations; next 1. Patient admitted with a several month history of coughing low-grade fever and weight loss findings on CT imaging of the chest are highly suspicious for miliary tuberculosis. Patient currently on anti-tuberculosis medications. Awaiting PPD as well as AFB stains on sputum. Continue oral Levaquin. Consultation Date/Type/Reason Admit Date/Time Aug 25, 2016 at 01:03 Initial Consult Date 08/25/16 Type of Consultation: Pulmonary 24 HR Interval Summary Free Text/Dictation Patient condition is stable. Denies any shortness of breath, fever, chest pain hemoptysis. Complains of mild sputum production. General exam; young male, awake alert currently in no distress. Exam/Review of Systems Vital Signs Vitals Vital Signs Date Time Temp Pulse Resp B/P Pulse Ox O2 Delivery O2 Flow Rate FiO2 08/27/16 08:28 98.5 97 19 132/71 99 08/26/16 21:13 Room Air 08/26/16 17:17 2.0 08/26/16 02:30 21 Intake and Output 08/26/16 08/26/16 08/27/16 15:00 23:00 07:00 Intake Total 850 ml 1710 ml 1800 ml Output Total 950 ml 2300 ml Balance 850 ml 760 ml -500 ml Exam HEENT exam is; supple neck, no JVD. No lymphadenopathy. Midline trachea. No thyromegaly. Pharynx is clear. Patient has good dentition. Chest examination; diminished but clear vessel. S1-S2 audible, no murmurs. Regular rhythm. Abdomen examination; soft, nondistended. Nontender. No organomegaly. Bowel sounds audible. Extremity examination; no peripheral edema. No clubbing. Pulses 2+ bilaterally. LEATHER NOVELTY PARTS CUTTER examination; no focal deficit. Results Result Diagram: 08/26/16 0342 08/26/16 0342 Medications Medications Current Medications Pantoprazole (Protonix Tab) 40 mg DAILY@06 PO Last administered on 08/27/16 05: 35; Admin Dose 40 MG; Start 08/25/16 at 06:00 Acetaminophen (Tylenol Tab) 650 mg Q6H PRN PO PAIN AND OR ELEVATED TEMP Last administered on 08/27/16 08:59; Admin Dose 650 MG; Start 08/25/16 at 03:00 Ondansetron HCl 4 mg 4 mg Q6H PRN IV NAUSEA AND/OR VOMITING; Start 08/25/16 at 03:00 Sodium Chloride (NS) 1,000 ml @ 100 mls/hr Q10H IV Last administered on 05:34; Admin Dose 100 MLS/HR; Start 08/25/16 at 03:00 Phenol (Cepastat Lozenge) 1 lozenge Q1H PRN MT SORE THROAT Last administered on 08/25/16 03:27; Admin Dose 1 LOZENGE; Start 08/25/16 at 03:00 Guaifenesin 200 mg 200 mg Q4H PRN PO COUGH Last administered on 08/27/16 05:35 ; Admin Dose 200 MG; Start 08/25/16 at 03:00 Ferric Sodium Gluconate Complex/ Sodium Chloride (Ferrlecit/NS) 110 ml @ 100 mls/hr Q24H IVPB Last administered on 08/26/16 14:26; Admin Dose 100 MLS/HR; Start 08/25/16 at 14:00; Stop 08/27/16 at 15:05 Isoniazid (Isoniazid) 300 mg DAILY PO Last administered on 08/27/16 08:15; Admin Dose 300 MG; Start 08/26/16 at 13:00 Rifampin (Rifampin) 600 mg DAILY PO Last administered on 08/27/16 08:15; Admin Dose 600 MG; Start 08/26/16 at 13:00 Ethambutol HCl (Myambutol) 400 mg DAILY PO Last administered on 08/27/16 08:15 ; Admin Dose 400 MG; Start 08/26/16 at 13:00 Levofloxacin (Levaquin) 500 mg DAILY@06 PO Last administered on 08/27/16 05:35 ; Admin Dose 500 MG; Start 08/27/16 at 06:00 Pyrazinamide (Pyrazinamide) 2,000 mg DAILY PO Last administered on 08/27/16 08: 15; Admin Dose 2,000 MG; Start 08/26/16 at 14:00 YIFAN GAN Aug 27, 2016 10:40
[2016-08-27] MEDS: SOD FERRIC GLUC COMPLX 125 MG in SOD CHLORIDE 0.9% 100 ML IVPB SCH (13:16)
--- NOTE | 2016-08-27 13:38 | CONS ---
Date/Time of Note Date/Time of Note DATE: 08/27/16 TIME: 13:35 Assessment/Plan Assessment/Plan Chief Complaint/Hosp Course SUBJECTIVE: No acute changes. The patient is alert, feels good. Denies pain, discomfort. MICROBIOLOGY: Blood and urine cultures remain negative. ANTIMICROBIALS: The patient is on Levaquin, Rifampin, Ethambutol, INH, Pyrazinamide DIAGNOSTICS: CT of the chest revealed diffuse bronchial and bronchiolar ____ thickening with mild bronchiectasis, central lobular nodules, scattered areas of cavitation and left upper lobe cavitary scarring. PHYSICAL EXAMINATION: GENERAL: This is a well-nourished, well-developed, middle-aged man who is awake, in no distress. HEENT: Head atraumatic, normocephalic. Sclerae anicteric. Buccal mucosa pink. NECK: Supple. CHEST: Rise symmetrical. Breath sounds clear, diminished to bases. HEART: S1, S2. ABDOMEN: Soft, bowel tones present. EXTREMITIES: Without cyanosis. ASSESSMENT: 1. Pneumonia with high suspicion for miliary tuberculosis as per radiographic findings and discussion with pulmonary team. 2. Hypertension. 3. Systemic inflammatory response syndrome. PLAN: Clinically stable, will add Diflucan and oral Nystatin, continue abx, await for final work up and f/u pulmonary rec-s DW staff Problems: Consultation Date/Type/Reason Admit Date/Time Aug 25, 2016 at 01:03 Initial Consult Date 08/25/16 Type of Consultation: ID Exam/Review of Systems Vital Signs Vitals Vital Signs Date Time Temp Pulse Resp B/P Pulse Ox O2 Delivery O2 Flow Rate FiO2 08/27/16 08:28 98.5 97 19 132/71 99 08/26/16 21:13 Room Air 08/26/16 17:17 2.0 08/26/16 02:30 21 Intake and Output 08/26/16 08/26/16 08/27/16 15:00 23:00 07:00 Intake Total 850 ml 1710 ml 1800 ml Output Total 950 ml 2300 ml Balance 850 ml 760 ml -500 ml Results Result Diagram: 08/26/16 0342 08/26/16 0342 Medications Medications Current Medications Pantoprazole (Protonix Tab) 40 mg DAILY@06 PO Last administered on 08/27/16t 05: 35; Admin Dose 40 MG; Start 08/25/16 at 06:00 Acetaminophen (Tylenol Tab) 650 mg Q6H PRN PO PAIN AND OR ELEVATED TEMP Last administered on 08/27/16 08:59; Admin Dose 650 MG; Start 08/25/16 at 03:00 Ondansetron HCl 4 mg 4 mg Q6H PRN IV NAUSEA AND/OR VOMITING; Start 08/25/16 at 03:00 Sodium Chloride (NS) 1,000 ml @ 100 mls/hr Q10H IV Last administered on 05:34; Admin Dose 100 MLS/HR; Start 08/25/16 at 03:00 Phenol (Cepastat Lozenge) 1 lozenge Q1H PRN MT SORE THROAT Last administered on 08/25/16 03:27; Admin Dose 1 LOZENGE; Start 08/25/16 at 03:00 Guaifenesin 200 mg 200 mg Q4H PRN PO COUGH Last administered on 08/27/16 05:35 ; Admin Dose 200 MG; Start 08/25/16 at 03:00 Ferric Sodium Gluconate Complex/ Sodium Chloride (Ferrlecit/NS) 110 ml @ 100 mls/hr Q24H IVPB Last administered on 08/27/16 13:16; Admin Dose 100 MLS/HR; Start 08/25/16 at 14:00; Stop 08/27/16 at 15:05 Isoniazid (Isoniazid) 300 mg DAILY PO Last administered on 08/27/16 08:15; Admin Dose 300 MG; Start 08/26/16 at 13:00 Rifampin (Rifampin) 600 mg DAILY PO Last administered on 08/27/16 08:15; Admin Dose 600 MG; Start 08/26/16 at 13:00 Ethambutol HCl (Myambutol) 400 mg DAILY PO Last administered on 08/27/16 08:15 ; Admin Dose 400 MG; Start 08/26/16 at 13:00 Levofloxacin (Levaquin) 500 mg DAILY@06 PO Last administered on 08/27/16 05:35 ; Admin Dose 500 MG; Start 08/27/16 at 06:00 Pyrazinamide (Pyrazinamide) 2,000 mg DAILY PO Last administered on 08/27/16 08: 15; Admin Dose 2,000 MG; Start 6/5/17 at 14:00 KATERYNA QUIÑONES NP Aug 27, 2016 13:37
[2016-08-27 13:46] LABS: TB-NIL 0.68 IU/mL
[2016-08-27] MEDS: FLUCONAZOLE 100 MG TAB PO SCH (14:57)
--- NOTE | 2016-08-27 15:35 | PN ---
Date/Time of Note Date/Time of Note DATE: 08/27/16 TIME: 15:33 Assessment/Plan VTE Prophylaxis VTE Prophylaxis Intervention: SCD's Lines/Catheters [facility] Peripheral IV Urinary Cath still in place: No Assessment/Plan Chief Complaint/Hosp Course Assessment and plan 1. Sepsis with pneumonia with high suspicion of tuberculosis. CT scan of the chest clinical picture of tuberculosis. Follow-up on AFB. Continue on antibiotics. Noted with fever last night. 2. Iron deficiency anemia. Continue iron supplement. Stable at present DVT Provox: Early ambulation For prophylaxis: Heparin Disposition plan: Still noted with fever overnight. Continue with antipyretics. Follow-up on AFB. Continue antibiotics. Continue supportive care. Discussed plan of care with Dr. Mckeon Problems: Subjective 24 Hr Interval Summary Free Text/Dictation No reports of shortness of breath. Slightly anxious. No other specific complaints Exam/Review of Systems Vital Signs Vitals Vital Signs Date Time Temp Pulse Resp B/P Pulse Ox O2 Delivery O2 Flow Rate FiO2 08/27/16 08:28 98.5 97 19 132/71 99 08/26/16 21:13 Room Air 08/26/16 17:17 2.0 08/26/16 02:30 21 Intake and Output 08/26/16 08/26/16 08/27/16 15:00 23:00 07:00 Intake Total 850 ml 1710 ml 1800 ml Output Total 950 ml 2300 ml Balance 850 ml 760 ml -500 ml Exam Constitutional: alert, oriented Psych: nl mood/affect Neck: non-tender, supple Respiratory: other Cardiovascular: regular rate and rhythm Gastrointestinal: non-tender, soft Neurological: BALLISTICS EXPERT FORENSIC II-XII intact, nl mental status, nl speech Skin: nl turgor Results Result Diagram: 08/26/16 0342 08/26/16 0342 Medications Medications Current Medications Pantoprazole (Protonix Tab) 40 mg DAILY@06 PO Last administered on 08/27/16 05: 35; Admin Dose 40 MG; Start 08/25/16 at 06:00 Acetaminophen (Tylenol Tab) 650 mg Q6H PRN PO PAIN AND OR ELEVATED TEMP Last administered on 08/27/16 08:59; Admin Dose 650 MG; Start 08/25/16 at 03:00 Ondansetron HCl 4 mg 4 mg Q6H PRN IV NAUSEA AND/OR VOMITING; Start 08/25/16 at 03:00 Sodium Chloride (NS) 1,000 ml @ 100 mls/hr Q10H IV Last administered on 14:58; Admin Dose 100 MLS/HR; Start 08/25/16 at 03:00 Phenol (Cepastat Lozenge) 1 lozenge Q1H PRN MT SORE THROAT Last administered on 08/25/16 03:27; Admin Dose 1 LOZENGE; Start 08/25/16 at 03:00 Guaifenesin (Robitussin Liquid Cup) 200 mg Q4H PRN PO COUGH Last administered on 08/27/16 05:35; Admin Dose 200 MG; Start 08/25/16 at 03:00 Isoniazid (Isoniazid) 300 mg DAILY PO Last administered on 08/27/16 08:15; Admin Dose 300 MG; Start 08/26/16 at 13:00 Rifampin (Rifampin) 600 mg DAILY PO Last administered on 08/27/16 08:15; Admin Dose 600 MG; Start 08/26/16 at 13:00 Ethambutol HCl (Myambutol) 400 mg DAILY PO Last administered on 08/27/16 08:15 ; Admin Dose 400 MG; Start 08/26/16 at 13:00 Levofloxacin (Levaquin) 500 mg DAILY@06 PO Last administered on 08/27/16 05:35 ; Admin Dose 500 MG; Start 08/27/16 at 06:00 Pyrazinamide (Pyrazinamide) 2,000 mg DAILY PO Last administered on 08/27/16 08: 15; Admin Dose 2,000 MG; Start 08/26/16 at 14:00 Fluconazole (Diflucan) 100 mg DAILY PO Last administered on 08/27/16 14:57; Admin Dose 100 MG; Start 08/27/16 at 14:00 Nystatin (Nystatin Susp) 5 ml QID PO ; Start 08/27/16 at 17:00 JOSE APODACA Aug 27, 2016 15:35
[2016-08-27] MEDS: NYSTATIN SUSP 5 ML CUP PO SCH ×2 (16:20→21:53)
[2016-08-27 19:50] VITALS: BP 137/76; RESP 18
[2016-08-27 20:00] VITALS: BP 125/70; PULSE 70; RESP 18
[2016-08-28] MEDS: SOD CHLORIDE 0.9% 1,000 ML IV SCH ×4 (00:58→21:00)
[2016-08-28] MEDS: LEVOFLOXACIN 500 MG TAB PO SCH (06:13)
[2016-08-28] MEDS: PANTOPRAZOLE (EC) 40 MG TAB PO SCH (06:13)
[2016-08-28 07:00] VITALS: BP 123/91; RESP 18
[2016-08-28] MEDS: PYRAZINAMIDE 500 MG TAB PO SCH (09:54)
[2016-08-28] MEDS: ETHAMBUTOL 400 MG TAB PO SCH (09:54)
[2016-08-28] MEDS: ISONIAZID 300 MG TAB PO SCH (09:54)
[2016-08-28] MEDS: NYSTATIN SUSP 5 ML CUP PO SCH ×4 (09:54→20:19)
[2016-08-28] MEDS: RIFAMPIN 300 MG CAP PO SCH (09:54)
[2016-08-28] MEDS: FLUCONAZOLE 100 MG TAB PO SCH (09:54)
[2016-08-28] MEDS: GUAIFENESIN 20 MG/ML 5ML CUP PO PRN ×3 (10:00→19:53)
--- NOTE | 2016-08-28 12:24 | CONS ---
Date/Time of Note Date/Time of Note DATE: 08/28/16 TIME: 12:20 Assessment/Plan Assessment/Plan Additional Assessment/Plan Sputum AFB stain is 2+ positive. Assessment recommendations; 1. Patient admitted for miliary tuberculosis currently on appropriate antibiotic regimen. Continue current treatment. Length of treatment per ID recommendations. We will sign off.. Please reconsult if needed. Thanks for the referral. Consultation Date/Type/Reason Admit Date/Time Aug 25, 2016 at 01:03 Initial Consult Date 08/25/16 Type of Consultation: Pulmonary 24 HR Interval Summary Free Text/Dictation Patient condition is stable. Complains of scant cough. Denies any sputum production.. Denies any fever chills. General exam; young male, awake alert currently in no distress. Exam/Review of Systems Vital Signs Vitals Vital Signs Date Time Temp Pulse Resp B/P Pulse Ox O2 Delivery O2 Flow Rate FiO2 08/28/16 07:00 98.4 84 18 123/91 100 08/27/16 20:00 Room Air 08/26/16 17:17 2.0 08/26/16 02:30 21 Intake and Output 08/27/16 08/27/16 08/28/16 15:00 23:00 07:00 Intake Total 1010 ml 3020 ml 2700 ml Output Total 1900 ml 1800 ml Balance 1010 ml 1120 ml 900 ml Exam HEENT examination; supple neck, no JVD. No lymphadenopathy. Midline trachea. No thyromegaly. Chest examination; clear to auscultation. S1-S2 audible, no murmurs. regular rhythm. Abdomen examination; soft, no organomegaly. Bowel sounds audible. Extremity examination; no peripheral edema. PHYTOPATHOLOGIST examination; no focal deficit. Results Result Diagram: 08/26/16 0342 08/26/16 0342 Results 24 hrs Laboratory Tests Test 08/28/16 06:02 Lab Scanned Report BLOOD TRANSFUSION Medications Medications Current Medications Pantoprazole (Protonix Tab) 40 mg DAILY@06 PO Last administered on 08/28/16 06: 13; Admin Dose 40 MG; Start 08/25/16 at 06:00 Acetaminophen (Tylenol Tab) 650 mg Q6H PRN PO PAIN AND OR ELEVATED TEMP Last administered on 08/27/16 08:59; Admin Dose 650 MG; Start 08/25/16 at 03:00 Ondansetron HCl 4 mg 4 mg Q6H PRN IV NAUSEA AND/OR VOMITING; Start 08/25/16 at 03:00 Sodium Chloride (NS) 1,000 ml @ 100 mls/hr Q10H IV Last administered on 00:58; Admin Dose 100 MLS/HR; Start 08/25/16 at 03:00 Phenol (Cepastat Lozenge) 1 lozenge Q1H PRN MT SORE THROAT Last administered on 08/25/16 03:27; Admin Dose 1 LOZENGE; Start 08/25/16 at 03:00 Guaifenesin (Robitussin Liquid Cup) 200 mg Q4H PRN PO COUGH Last administered on 08/28/16 10:00; Admin Dose 200 MG; Start 08/25/16 at 03:00 Isoniazid (Isoniazid) 300 mg DAILY PO Last administered on 08/28/16 09:54; Admin Dose 300 MG; Start 08/26/16 at 13:00 Rifampin (Rifampin) 600 mg DAILY PO Last administered on 08/28/16 09:54; Admin Dose 600 MG; Start 08/26/16 at 13:00 Ethambutol HCl (Myambutol) 400 mg DAILY PO Last administered on 08/28/16 09:54 ; Admin Dose 400 MG; Start 08/26/16 at 13:00 Levofloxacin (Levaquin) 500 mg DAILY@06 PO Last administered on 08/28/16 06:13 ; Admin Dose 500 MG; Start 08/27/16 at 06:00 Pyrazinamide (Pyrazinamide) 2,000 mg DAILY PO Last administered on 08/28/16 09: 54; Admin Dose 2,000 MG; Start 08/26/16 at 14:00 Fluconazole (Diflucan) 100 mg DAILY PO Last administered on 08/28/16 09:54; Admin Dose 100 MG; Start 08/27/16 at 14:00 Nystatin (Nystatin Susp) 5 ml QID PO Last administered on 08/28/16 09:54; Admin Dose 5 ML; Start 08/27/16 at 17:00 YIFAN GAN 7, 2017 12:24
--- NOTE | 2016-08-28 12:31 | CONS ---
Date/Time of Note Date/Time of Note DATE: 08/28/16 TIME: 12:28 Assessment/Plan Assessment/Plan Chief Complaint/Hosp Course SUBJECTIVE: No acute changes. Spiking fevers, looks comfortable MICROBIOLOGY: Sputum +AFB ANTIMICROBIALS: The patient is on Levaquin, Rifampin, Ethambutol, INH, Pyrazinamide Diflucan DIAGNOSTICS: CT of the chest revealed diffuse bronchial and bronchiolar ____ thickening with mild bronchiectasis, central lobular nodules, scattered areas of cavitation and left upper lobe cavitary scarring. PHYSICAL EXAMINATION: GENERAL: This is a well-nourished, well-developed, middle-aged man who is awake, in no distress. HEENT: Head atraumatic, normocephalic. Sclerae anicteric. Buccal mucosa pink. NECK: Supple. CHEST: Rise symmetrical. Breath sounds clear, diminished to bases. HEART: S1, S2. ABDOMEN: Soft, bowel tones present. EXTREMITIES: Without cyanosis. ASSESSMENT: 1. Miliary tuberculosis 2. Hypertension. 3. Systemic inflammatory response syndrome. PLAN: Clinically stable, dc Levaquin, continue Diflucan and oral Nystatin, notify [facility] infection control dep-t and [facility], await for final work up and f/u pulmonary rec-s [facility] staff Problems: Consultation Date/Type/Reason Admit Date/Time Aug 25, 2016 at 01:03 Initial Consult Date 08/25/16 Type of Consultation: ID Exam/Review of Systems Vital Signs Vitals Vital Signs Date Time Temp Pulse Resp B/P Pulse Ox O2 Delivery O2 Flow Rate FiO2 08/28/16 07:00 98.4 84 18 123/91 100 08/27/16 20:00 Room Air 08/26/16 17:17 2.0 08/26/16 02:30 21 Intake and Output 08/27/16 08/27/16 08/28/16 15:00 23:00 07:00 Intake Total 1010 ml 3020 ml 2700 ml Output Total 1900 ml 1800 ml Balance 1010 ml 1120 ml 900 ml Results Result Diagram: 08/26/16 0342 08/26/16 0342 Results 24 hrs Laboratory Tests Test 08/28/16 06:02 Lab Scanned Report BLOOD TRANSFUSION Medications Medications Current Medications Pantoprazole (Protonix Tab) 40 mg DAILY@06 PO Last administered on 08/28/16t 06: 13; Admin Dose 40 MG; Start 08/25/16 at 06:00 Acetaminophen (Tylenol Tab) 650 mg Q6H PRN PO PAIN AND OR ELEVATED TEMP Last administered on 08/27/16 08:59; Admin Dose 650 MG; Start 08/25/16 at 03:00 Ondansetron HCl 4 mg 4 mg Q6H PRN IV NAUSEA AND/OR VOMITING; Start 08/25/16 at 03:00 Sodium Chloride (NS) 1,000 ml @ 100 mls/hr Q10H IV Last administered on 00:58; Admin Dose 100 MLS/HR; Start 08/25/16 at 03:00 Phenol (Cepastat Lozenge) 1 lozenge Q1H PRN MT SORE THROAT Last administered on 08/25/16 03:27; Admin Dose 1 LOZENGE; Start 08/25/16 at 03:00 Guaifenesin (Robitussin Liquid Cup) 200 mg Q4H PRN PO COUGH Last administered on 08/28/16 10:00; Admin Dose 200 MG; Start 08/25/16 at 03:00 Isoniazid (Isoniazid) 300 mg DAILY PO Last administered on 08/28/16 09:54; Admin Dose 300 MG; Start 08/26/16 at 13:00 Rifampin (Rifampin) 600 mg DAILY PO Last administered on 08/28/16 09:54; Admin Dose 600 MG; Start 08/26/16 at 13:00 Ethambutol HCl (Myambutol) 400 mg DAILY PO Last administered on 08/28/16 09:54 ; Admin Dose 400 MG; Start 08/26/16 at 13:00 Levofloxacin (Levaquin) 500 mg DAILY@06 PO Last administered on 08/28/16 06:13 ; Admin Dose 500 MG; Start 08/27/16 at 06:00 Pyrazinamide (Pyrazinamide) 2,000 mg DAILY PO Last administered on 08/28/16 09: 54; Admin Dose 2,000 MG; Start 08/26/16 at 14:00 Fluconazole (Diflucan) 100 mg DAILY PO Last administered on 08/28/16 09:54; Admin Dose 100 MG; Start 08/27/16 at 14:00 Nystatin (Nystatin Susp) 5 ml QID PO Last administered on 08/28/16 09:54; Admin Dose 5 ML; Start 08/27/16 at 17:00 KATERYNA QUIÑONES NP Aug 28, 2016 12:31
--- NOTE | 2016-08-28 17:14 | PN ---
Date/Time of Note Date/Time of Note DATE: 08/28/16 TIME: 17:11 Assessment/Plan VTE Prophylaxis VTE Prophylaxis Intervention: SCD's Lines/Catheters [facility]from [facility] Peripheral IV Urinary Cath still in place: No Assessment/Plan Chief Complaint/Hosp Course Assessment and plan 1. Sepsis with pneumonia and miliary tuberculosis. CT scan of the chest clinical picture of tuberculosis. AFB positive. ID following. continue with abx. 2. Iron deficiency anemia. Continue iron supplement. 3. Iron deficiency anemia. Continue on iron supplement DVT Provox: Early ambulation For prophylaxis: Heparin Disposition plan:with miliary TB. continue on abx. breathing tx prn for dyspnea. d/c when medically stable and cleared by consultants Discussed plan of care with Dr. Mckeon Problems: Subjective 24 Hr Interval Summary Free Text/Dictation no reported dyspnea or shortness of breath Exam/Review of Systems Vital Signs Vitals Vital Signs Date Time Temp Pulse Resp B/P Pulse Ox O2 Delivery O2 Flow Rate FiO2 08/28/16 07:00 98.4 84 18 123/91 100 08/27/16 20:00 Room Air 08/26/16 17:17 2.0 08/26/16 02:30 21 Intake and Output 08/27/16 08/27/16 08/28/16 15:00 23:00 07:00 Intake Total 1010 ml 3020 ml 2700 ml Output Total 1900 ml 1800 ml Balance 1010 ml 1120 ml 900 ml Exam Constitutional: alert, oriented Psych: nl mood/affect Neck: non-tender, supple Respiratory: other Cardiovascular: regular rate and rhythm Gastrointestinal: non-tender, soft Neurological: CUSHION PADDER II-XII intact, nl mental status, nl speech Skin: nl turgor Results Result Diagram: 08/26/16 0342 08/26/16 0342 Results 24 hrs Laboratory Tests Test 08/28/16 06:02 Lab Scanned Report BLOOD TRANSFUSION Medications Medications Current Medications Pantoprazole (Protonix Tab) 40 mg DAILY@06 PO Last administered on 08/28/16 06: 13; Admin Dose 40 MG; Start 08/25/16 at 06:00 Acetaminophen (Tylenol Tab) 650 mg Q6H PRN PO PAIN AND OR ELEVATED TEMP Last administered on 08/27/16 08:59; Admin Dose 650 MG; Start 08/25/16 at 03:00 Ondansetron HCl 4 mg 4 mg Q6H PRN IV NAUSEA AND/OR VOMITING; Start 08/25/16 at 03:00 Sodium Chloride (NS) 1,000 ml @ 100 mls/hr Q10H IV Last administered on 16:30; Admin Dose 100 MLS/HR; Start 08/25/16 at 03:00 Phenol (Cepastat Lozenge) 1 lozenge Q1H PRN MT SORE THROAT Last administered on 08/25/16 03:27; Admin Dose 1 LOZENGE; Start 08/25/16 at 03:00 Guaifenesin (Robitussin Liquid Cup) 200 mg Q4H PRN PO COUGH Last administered on 08/28/16 14:14; Admin Dose 200 MG; Start 08/25/16 at 03:00 Isoniazid (Isoniazid) 300 mg DAILY PO Last administered on 08/28/16 09:54; Admin Dose 300 MG; Start 08/26/16 at 13:00 Rifampin (Rifampin) 600 mg DAILY PO Last administered on 08/28/16 09:54; Admin Dose 600 MG; Start 08/26/16 at 13:00 Ethambutol HCl (Myambutol) 400 mg DAILY PO Last administered on 08/28/16 09:54 ; Admin Dose 400 MG; Start 08/26/16 at 13:00 Levofloxacin (Levaquin) 500 mg DAILY@06 PO Last administered on 08/28/16 06:13 ; Admin Dose 500 MG; Start 08/27/16 at 06:00 Pyrazinamide (Pyrazinamide) 2,000 mg DAILY PO Last administered on 08/28/16 09: 54; Admin Dose 2,000 MG; Start 08/26/16 at 14:00 Fluconazole (Diflucan) 100 mg DAILY PO Last administered on 08/28/16 09:54; Admin Dose 100 MG; Start 08/27/16 at 14:00 Nystatin (Nystatin Susp) 5 ml QID PO Last administered on 08/28/16 14:12; Admin Dose 5 ML; Start 08/27/16 at 17:00 JOSE APODACA Aug 28, 2016 17:14
[2016-08-28] MEDS: DOCUSATE SODIUM 100 MG CAP PO SCH (20:19)
[2016-08-28] MEDS: FERROUS SULFATE (EC) 325 MG TAB PO SCH (20:19)
[2016-08-28 21:46] VITALS: BP 134/80; RESP 19
[2016-08-29] MEDS: SOD CHLORIDE 0.9% 1,000 ML IV SCH ×2 (02:40→16:46)
[2016-08-29] MEDS: PANTOPRAZOLE (EC) 40 MG TAB PO SCH (06:01)
[2016-08-29] MEDS: LEVOFLOXACIN 500 MG TAB PO SCH (06:02)
[2016-08-29] MEDS: GUAIFENESIN 20 MG/ML 5ML CUP PO PRN (06:02)
[2016-08-29] MEDS: DOCUSATE SODIUM 100 MG CAP PO SCH ×2 (09:00→20:54)
[2016-08-29] MEDS: FERROUS SULFATE (EC) 325 MG TAB PO SCH ×3 (09:04→20:54)
[2016-08-29] MEDS: FLUCONAZOLE 100 MG TAB PO SCH (09:04)
[2016-08-29] MEDS: ETHAMBUTOL 400 MG TAB PO SCH (09:04)
[2016-08-29] MEDS: RIFAMPIN 300 MG CAP PO SCH (09:05)
[2016-08-29] MEDS: NYSTATIN SUSP 5 ML CUP PO SCH ×4 (09:05→20:54)
[2016-08-29] MEDS: PYRAZINAMIDE 500 MG TAB PO SCH (09:05)
[2016-08-29] MEDS: ISONIAZID 300 MG TAB PO SCH (09:06)
[2016-08-29 09:50] VITALS: BP 130/75; RESP 19
--- NOTE | 2016-08-29 13:17 | CONS ---
Date/Time of Note Date/Time of Note DATE: 08/29/16 TIME: 13:16 Assessment/Plan Assessment/Plan Chief Complaint/Hosp Course SUBJECTIVE: No acute changes. Afebrile, looks comfortable MICROBIOLOGY: Sputum +AFB x2 ANTIMICROBIALS: The patient is on Levaquin, Rifampin, Ethambutol, INH, Pyrazinamide Diflucan PHYSICAL EXAMINATION: GENERAL: This is a well-nourished, well-developed, middle-aged man who is awake, in no distress. HEENT: Head atraumatic, normocephalic. Sclerae anicteric. Buccal mucosa pink. NECK: Supple. CHEST: Rise symmetrical. Breath sounds clear, diminished to bases. HEART: S1, S2. ABDOMEN: Soft, bowel tones present. EXTREMITIES: Without cyanosis. ASSESSMENT: 1. Miliary tuberculosis 2. Hypertension. 3. Systemic inflammatory response syndrome. PLAN: Clinically stable, continue RIPE, await for sputum AFB by PCR, f/u [facility] rec-s, isolation [facility] staff Problems: Consultation Date/Type/Reason Admit Date/Time Aug 25, 2016 at 01:03 Initial Consult Date 08/25/16 Type of Consultation: ID Exam/Review of Systems Vital Signs Vitals Vital Signs Date Time Temp Pulse Resp B/P Pulse Ox O2 Delivery O2 Flow Rate FiO2 08/29/16 09:50 97.8 106 19 130/75 97 08/27/16 20:00 Room Air 08/26/16 17:17 2.0 08/26/16 02:30 21 Intake and Output 08/28/16 08/28/16 08/29/16 15:00 23:00 07:00 Intake Total 2210 ml 900 ml Output Total 1350 ml 1800 ml Balance 860 ml -900 ml Results Result Diagram: 08/26/16 0342 08/26/16 0342 Medications Medications Current Medications Pantoprazole (Protonix Tab) 40 mg DAILY@06 PO Last administered on 08/29/16 06: 01; Admin Dose 40 MG; Start 08/25/16 at 06:00 Acetaminophen (Tylenol Tab) 650 mg Q6H PRN PO PAIN AND OR ELEVATED TEMP Last administered on 08/27/16 08:59; Admin Dose 650 MG; Start 08/25/16 at 03:00 Ondansetron HCl 4 mg 4 mg Q6H PRN IV NAUSEA AND/OR VOMITING; Start 08/25/16 at 03:00 Sodium Chloride (NS) 1,000 ml @ 100 mls/hr Q10H IV Last administered on 02:40; Admin Dose 100 MLS/HR; Start 08/25/16 at 03:00 Phenol (Cepastat Lozenge) 1 lozenge Q1H PRN MT SORE THROAT Last administered on 08/25/16 03:27; Admin Dose 1 LOZENGE; Start 08/25/16 at 03:00 Guaifenesin (Robitussin Liquid Cup) 200 mg Q4H PRN PO COUGH Last administered on 08/29/16 06:02; Admin Dose 200 MG; Start 08/25/16 at 03:00 Isoniazid (Isoniazid) 300 mg DAILY PO Last administered on 08/29/16 09:06; Admin Dose 300 MG; Start 08/26/16 at 13:00 Rifampin (Rifampin) 600 mg DAILY PO Last administered on 08/29/16 09:05; Admin Dose 600 MG; Start 08/26/16 at 13:00 Ethambutol HCl (Myambutol) 400 mg DAILY PO Last administered on 08/29/16 09:04 ; Admin Dose 400 MG; Start 08/26/16 at 13:00 Levofloxacin (Levaquin) 500 mg DAILY@06 PO Last administered on 08/29/16 06:02 ; Admin Dose 500 MG; Start 08/27/16 at 06:00 Pyrazinamide (Pyrazinamide) 2,000 mg DAILY PO Last administered on 08/29/16 09: 05; Admin Dose 2,000 MG; Start 08/26/16 at 14:00 Fluconazole (Diflucan) 100 mg DAILY PO Last administered on 08/29/16 09:04; Admin Dose 100 MG; Start 08/27/16 at 14:00 Nystatin (Nystatin Susp) 5 ml QID PO Last administered on 08/29/16 12:12; Admin Dose 5 ML; Start 08/27/16 at 17:00 Ferrous Sulfate (Ferrous Sulfate (Ec)) 325 mg TID PO Last administered on 12:12; Admin Dose 325 MG; Start 08/28/16 at 21:00 Docusate Sodium (Colace) 200 mg BID PO Last administered on 08/28/16t 20:19; Admin Dose 200 MG; Start 08/28/16 at 21:00 KATERYNA QUIÑONES NP Aug 29, 2016 13:17
--- NOTE | 2016-08-29 15:55 | PN ---
Date/Time of Note Date/Time of Note DATE: 08/29/16 TIME: 15:51 Assessment/Plan VTE Prophylaxis VTE Prophylaxis Intervention: SCD's Lines/Catheters [facility]from [facility] Peripheral IV Urinary Cath still in place: No Assessment/Plan Chief Complaint/Hosp Course Assessment and plan 1. Sepsis with pneumonia and miliary tuberculosis. CT scan of the chest clinical picture of tuberculosis. AFB positive. ID following. continue with abx. 2. Iron deficiency anemia. Continue iron supplement. DVT Provox: Early ambulation For prophylaxis: Heparin Disposition plan:with miliary TB. continue on abx. infectious disease control team following. d/c when medically cleared Discussed plan of care with Dr. Mckeon Problems: Subjective 24 Hr Interval Summary Free Text/Dictation No s/s of distress. no shortness of breath Exam/Review of Systems Vital Signs Vitals Vital Signs Date Time Temp Pulse Resp B/P Pulse Ox O2 Delivery O2 Flow Rate FiO2 08/29/16 09:50 97.8 106 19 130/75 97 08/27/16 20:00 Room Air 08/26/16 17:17 2.0 08/26/16 02:30 21 Intake and Output 08/28/16 08/28/16 08/29/16 15:00 23:00 07:00 Intake Total 2210 ml 900 ml Output Total 1350 ml 1800 ml Balance 860 ml -900 ml Exam Constitutional: alert, oriented Psych: No anxiety Head: normocephalic Neck: supple, No jvd Respiratory: other (minimally coarse bilaterally) Gastrointestinal: non-tender, soft Musculoskeletal: nl extremities to inspection Extremities: normal pulses Neurological: CODING QUALITY COORDINATOR II-XII intact, nl mental status, nl speech Skin: nl turgor Results Result Diagram: 08/26/16 0342 08/26/16 0342 Medications Medications Current Medications Pantoprazole (Protonix Tab) 40 mg DAILY@06 PO Last administered on 08/29/16 06: 01; Admin Dose 40 MG; Start 08/25/16 at 06:00 Acetaminophen (Tylenol Tab) 650 mg Q6H PRN PO PAIN AND OR ELEVATED TEMP Last administered on 08/27/16 08:59; Admin Dose 650 MG; Start 08/25/16 at 03:00 Ondansetron HCl 4 mg 4 mg Q6H PRN IV NAUSEA AND/OR VOMITING; Start 08/25/16 at 03:00 Sodium Chloride (NS) 1,000 ml @ 100 mls/hr Q10H IV Last administered on 02:40; Admin Dose 100 MLS/HR; Start 08/25/16 at 03:00 Phenol (Cepastat Lozenge) 1 lozenge Q1H PRN MT SORE THROAT Last administered on 08/25/16 03:27; Admin Dose 1 LOZENGE; Start 08/25/16 at 03:00 Guaifenesin (Robitussin Liquid Cup) 200 mg Q4H PRN PO COUGH Last administered on 08/29/16 06:02; Admin Dose 200 MG; Start 08/25/16 at 03:00 Isoniazid (Isoniazid) 300 mg DAILY PO Last administered on 08/29/16 09:06; Admin Dose 300 MG; Start 08/26/16 at 13:00 Rifampin (Rifampin) 600 mg DAILY PO Last administered on 08/29/16 09:05; Admin Dose 600 MG; Start 08/26/16 at 13:00 Ethambutol HCl (Myambutol) 400 mg DAILY PO Last administered on 08/29/16 09:04 ; Admin Dose 400 MG; Start 08/26/16 at 13:00 Pyrazinamide (Pyrazinamide) 2,000 mg DAILY PO Last administered on 08/29/16 09: 05; Admin Dose 2,000 MG; Start 08/26/16 at 14:00 Nystatin (Nystatin Susp) 5 ml QID PO Last administered on 08/29/16 12:12; Admin Dose 5 ML; Start 08/27/16 at 17:00 Ferrous Sulfate (Ferrous Sulfate (Ec)) 325 mg TID PO Last administered on 12:12; Admin Dose 325 MG; Start 08/28/16 at 21:00 Docusate Sodium (Colace) 200 mg BID PO Last administered on 08/28/16 20:19; Admin Dose 200 MG; Start 08/28/16 at 21:00 JOSE APODACA Aug 29, 2016 15:55
[2016-08-29 20:01] VITALS: BP 122/69; RESP 18
[2016-08-30] MEDS: PANTOPRAZOLE (EC) 40 MG TAB PO SCH (05:39)
[2016-08-30 07:00] VITALS: BP 118/71; RESP 18
[2016-08-30] MEDS: DOCUSATE SODIUM 100 MG CAP PO SCH ×2 (10:05→21:14)
[2016-08-30] MEDS: ISONIAZID 300 MG TAB PO SCH (10:06)
[2016-08-30] MEDS: PYRAZINAMIDE 500 MG TAB PO SCH (10:06)
[2016-08-30] MEDS: FERROUS SULFATE (EC) 325 MG TAB PO SCH ×3 (10:06→21:14)
[2016-08-30] MEDS: RIFAMPIN 300 MG CAP PO SCH (10:06)
[2016-08-30] MEDS: NYSTATIN SUSP 5 ML CUP PO SCH ×4 (10:09→21:13)
--- NOTE | 2016-08-30 10:39 | CONS ---
Date/Time of Note Date/Time of Note DATE: 08/30/16 TIME: 10:38 Consult Date/Type/Reason Admit Date/Time Aug 25, 2016 at 01:03 Initial Consult Date 08/25/16 Type of Consultation: Pulmonary Subjective Patient doing okay this morning no new events Objective Vital Signs Date Time Temp Pulse Resp B/P Pulse Ox O2 Delivery O2 Flow Rate FiO2 08/30/16 07:00 98.3 91 18 118/71 98 08/27/16 20:00 Room Air 08/26/16 17:17 2.0 Intake and Output 08/29/16 08/29/16 08/30/16 15:00 23:00 07:00 Intake Total 700 ml 1900 ml 650 ml Output Total 1200 ml 850 ml Balance 700 ml 700 ml -200 ml Exam GENERAL: VITAL SIGNS: per chart NECK: Supple. No JVD or lymphadenopathy. CARDIAC EXAM: S1, S2. No added sounds or murmurs. CHEST: clear bilaterally, No added sounds, rales or wheezes ABDOMEN: Soft, nontender. No guarding or rebound. EXTREMITIES: No cyanosis, clubbing or edema. NEUROLOGIC: Generalized weakness. No focal deficits. Results/Medications Result Diagram: 08/26/16 0342 08/26/16 0342 Medications Current Medications Pantoprazole (Protonix Tab) 40 mg DAILY@06 PO Last administered on 08/30/16 05: 39; Admin Dose 40 MG; Start 08/25/16 at 06:00 Acetaminophen (Tylenol Tab) 650 mg Q6H PRN PO PAIN AND OR ELEVATED TEMP Last administered on 08/27/16 08:59; Admin Dose 650 MG; Start 08/25/16 at 03:00 Ondansetron HCl (Zofran Inj) 4 mg Q6H PRN IV NAUSEA AND/OR VOMITING; Start 08/25 at 03:00 Phenol (Cepastat Lozenge) 1 lozenge Q1H PRN MT SORE THROAT Last administered on 08/25/16 03:27; Admin Dose 1 LOZENGE; Start 08/25/16 at 03:00 Guaifenesin (Robitussin Liquid Cup) 200 mg Q4H PRN PO COUGH Last administered on 08/29/16 06:02; Admin Dose 200 MG; Start 08/25/16 at 03:00 Isoniazid (Isoniazid) 300 mg DAILY PO Last administered on 08/30/16 10:06; Admin Dose 300 MG; Start 08/26/16 at 13:00 Rifampin (Rifampin) 600 mg DAILY PO Last administered on 08/30/16 10:06; Admin Dose 600 MG; Start 08/26/16 at 13:00 Ethambutol HCl (Myambutol) 400 mg DAILY PO Last administered on 08/29/16 09:04 ; Admin Dose 400 MG; Start 08/26/16 at 13:00 Pyrazinamide (Pyrazinamide) 2,000 mg DAILY PO Last administered on 08/30/16 10: 06; Admin Dose 2,000 MG; Start 08/26/16 at 14:00 Nystatin (Nystatin Susp) 5 ml QID PO Last administered on 08/30/16 10:09; Admin Dose 5 ML; Start 08/27/16 at 17:00 Ferrous Sulfate (Ferrous Sulfate (Ec)) 325 mg TID PO Last administered on 10:06; Admin Dose 325 MG; Start 08/28/16 at 21:00 Docusate Sodium (Colace) 200 mg BID PO Last administered on 08/30/16 10:05; Admin Dose 200 MG; Start 08/28/16 at 21:00 Assessment/Plan Chief Complaint/Hosp Course Assessment 1. Miliary TB recent AFB sputum 1 positive 2. Anemia likely of chronic disease 3. Reactive thrombocytosis Plan 1. Continue antibiotics per infectious diseases 2. Informed [facility] infection control screening of close relatives and contacts. 3. Continue ripe therapy per ID We will follow as needed. Problems: CHARLES DIAZ [facility], [facility] Aug 30, 2016 10:39
[2016-08-30] MEDS: ETHAMBUTOL 400 MG TAB PO SCH (11:30)
--- NOTE | 2016-08-30 13:17 | CONS ---
Date/Time of Note Date/Time of Note DATE: 08/30/16 TIME: 13:15 Assessment/Plan Assessment/Plan Chief Complaint/Hosp Course SUBJECTIVE: No acute changes. Occasional Cough. Afebrile, looks comfortable MICROBIOLOGY: Sputum +AFB x2 ANTIMICROBIALS: The patient is on Levaquin, Rifampin, Ethambutol, INH, Pyrazinamide Diflucan PHYSICAL EXAMINATION: GENERAL: This is a well-nourished, well-developed, middle-aged man who is awake, in no distress. HEENT: Head atraumatic, normocephalic. Sclerae anicteric. Buccal mucosa pink. NECK: Supple. CHEST: Rise symmetrical. Breath sounds clear, diminished to bases. HEART: S1, S2. ABDOMEN: Soft, bowel tones present. EXTREMITIES: Without cyanosis. ASSESSMENT: 1. Miliary tuberculosis 2. Hypertension. 3. Systemic inflammatory response syndrome. PLAN: Clinically stable, continue RIPE, await for sputum AFB by PCR, f/u [facility] rec-s, isolation staff Problems: Consultation Date/Type/Reason Admit Date/Time Aug 25, 2016 at 01:03 Initial Consult Date 08/25/16 Type of Consultation: id Exam/Review of Systems Vital Signs Vitals Vital Signs Date Time Temp Pulse Resp B/P Pulse Ox O2 Delivery O2 Flow Rate FiO2 08/30/16 07:00 98.3 91 18 118/71 98 08/27/16 20:00 Room Air 08/26/16 17:17 2.0 Intake and Output 08/29/16 08/29/16 08/30/16 15:00 23:00 07:00 Intake Total 700 ml 1900 ml 650 ml Output Total 1200 ml 850 ml Balance 700 ml 700 ml -200 ml Results Result Diagram: 08/26/16 0342 08/26/16 0342 Results 24 hrs Laboratory Tests Test 08/30/16 12:58 Lab Scanned Report REFERENCE LAB Medications Medications Current Medications Pantoprazole (Protonix Tab) 40 mg DAILY@06 PO Last administered on 08/30/16 05: 39; Admin Dose 40 MG; Start 08/25/16 at 06:00 Acetaminophen (Tylenol Tab) 650 mg Q6H PRN PO PAIN AND OR ELEVATED TEMP Last administered on 08/27/16 08:59; Admin Dose 650 MG; Start 08/25/16 at 03:00 Ondansetron HCl (Zofran Inj) 4 mg Q6H PRN IV NAUSEA AND/OR VOMITING; Start 08/25 at 03:00 Phenol (Cepastat Lozenge) 1 lozenge Q1H PRN MT SORE THROAT Last administered on 08/25/16 03:27; Admin Dose 1 LOZENGE; Start 08/25/16 at 03:00 Guaifenesin (Robitussin Liquid Cup) 200 mg Q4H PRN PO COUGH Last administered on 08/29/16 06:02; Admin Dose 200 MG; Start 08/25/16 at 03:00 Isoniazid (Isoniazid) 300 mg DAILY PO Last administered on 08/30/16 10:06; Admin Dose 300 MG; Start 08/26/16 at 13:00 Rifampin (Rifampin) 600 mg DAILY PO Last administered on 08/30/16 10:06; Admin Dose 600 MG; Start 08/26/16 at 13:00 Ethambutol HCl (Myambutol) 400 mg DAILY PO Last administered on 08/30/16 11:30 ; Admin Dose 400 MG; Start 08/26/16 at 13:00 Pyrazinamide (Pyrazinamide) 2,000 mg DAILY PO Last administered on 08/30/16 10: 06; Admin Dose 2,000 MG; Start 08/26/16 at 14:00 Nystatin (Nystatin Susp) 5 ml QID PO Last administered on 08/30/16 10:09; Admin Dose 5 ML; Start 08/27/16 at 17:00 Ferrous Sulfate (Ferrous Sulfate (Ec)) 325 mg TID PO Last administered on 10:06; Admin Dose 325 MG; Start 08/28/16 at 21:00 Docusate Sodium (Colace) 200 mg BID PO Last administered on 08/30/16 10:05; Admin Dose 200 MG; Start 08/28/16 at 21:00 REJI HILARIO NP Aug 30, 2016 13:17
--- NOTE | 2016-08-30 13:56 | PN ---
Date/Time of Note Date/Time of Note DATE: 08/30/16 TIME: 13:48 Assessment/Plan VTE Prophylaxis VTE Prophylaxis Intervention: SCD's Lines/Catheters IV [facility]ter Type (from [facility]): Peripheral IV Urinary Cath still in place: No Assessment/Plan Chief Complaint/Hosp Course Assessment and plan 1. Sepsis with pneumonia and miliary tuberculosis. CT scan of the chest clinical picture of tuberculosis. AFB positive. ID following. continue with abx. 2. Iron deficiency anemia. Continue iron supplement. 3. thrombocytosis. likely reactive. appears to be improving at present DVT Provox: Early ambulation For prophylaxis: Heparin Disposition plan:with miliary TB. continue on abx. infectious disease control team following. d/c when medically cleared. continue supportive care . check AM labs Discussed plan of care with Dr. Mckeon Problems: Subjective 24 Hr Interval Summary Free Text/Dictation no s/s of distress Exam/Review of Systems Vital Signs Vitals Vital Signs Date Time Temp Pulse Resp B/P Pulse Ox O2 Delivery O2 Flow Rate FiO2 08/30/16 07:00 98.3 91 18 118/71 98 08/27/16 20:00 Room Air 08/26/16 17:17 2.0 Intake and Output 08/29/16 08/29/16 08/30/16 15:00 23:00 07:00 Intake Total 700 ml 1900 ml 650 ml Output Total 1200 ml 850 ml Balance 700 ml 700 ml -200 ml Exam Constitutional: alert, oriented Psych: No anxiety Head: normocephalic Neck: supple, No jvd Respiratory: no wheezing/rhonchi Gastrointestinal: non-tender, soft Musculoskeletal: nl extremities to inspection Extremities: normal pulses Neurological: REVENUE CYCLE CONSULTANT II-XII intact, nl mental status, nl speech Skin: nl turgor Results Result Diagram: 08/26/16 0342 08/26/16 0342 Results 24 hrs Laboratory Tests Test 08/30/16 12:58 Lab Scanned Report REFERENCE LAB Medications Medications Current Medications Pantoprazole (Protonix Tab) 40 mg DAILY@06 PO Last administered on 08/30/16 05: 39; Admin Dose 40 MG; Start 08/25/16 at 06:00 Acetaminophen (Tylenol Tab) 650 mg Q6H PRN PO PAIN AND OR ELEVATED TEMP Last administered on 08/27/16 08:59; Admin Dose 650 MG; Start 08/25/16 at 03:00 Ondansetron HCl (Zofran Inj) 4 mg Q6H PRN IV NAUSEA AND/OR VOMITING; Start 08/25 at 03:00 Phenol (Cepastat Lozenge) 1 lozenge Q1H PRN MT SORE THROAT Last administered on 08/25/16 03:27; Admin Dose 1 LOZENGE; Start 08/25/16 at 03:00 Guaifenesin (Robitussin Liquid Cup) 200 mg Q4H PRN PO COUGH Last administered on 08/29/16 06:02; Admin Dose 200 MG; Start 08/25/16 at 03:00 Isoniazid (Isoniazid) 300 mg DAILY PO Last administered on 08/30/16 10:06; Admin Dose 300 MG; Start 08/26/16 at 13:00 Rifampin (Rifampin) 600 mg DAILY PO Last administered on 08/30/16 10:06; Admin Dose 600 MG; Start 08/26/16 at 13:00 Ethambutol HCl (Myambutol) 400 mg DAILY PO Last administered on 08/30/16 11:30 ; Admin Dose 400 MG; Start 08/26/16 at 13:00 Pyrazinamide (Pyrazinamide) 2,000 mg DAILY PO Last administered on 08/30/16 10: 06; Admin Dose 2,000 MG; Start 08/26/16 at 14:00 Nystatin (Nystatin Susp) 5 ml QID PO Last administered on 08/30/16 10:09; Admin Dose 5 ML; Start 08/27/16 at 17:00 Ferrous Sulfate (Ferrous Sulfate (Ec)) 325 mg TID PO Last administered on 10:06; Admin Dose 325 MG; Start 08/28/16 at 21:00 Docusate Sodium (Colace) 200 mg BID PO Last administered on 08/30/16 10:05; Admin Dose 200 MG; Start 08/28/16 at 21:00 JOSE APODACA Aug 30, 2016 13:56
[2016-08-30 21:14] VITALS: BP 137/82; RESP 18
[2016-08-31 05:04] LABS: ADD SCAN DIFF NO
[2016-08-31 05:11] LABS: ABNORMAL IP MESSAGE 1; BASOPHIL # 0.1 10^3/ul (0.0-0.1); BASOPHILS % 0.6 % (0.0-2.0); EOSINOPHILS # 0.4 10^3/ul (0.0-0.5); HEMATOCRIT 30.2 % (42.0-52.0); HEMOGLOBIN 8.7 g/dl (14.0-18.0); LYMPHOCYTES # 1.5 10^3/ul (0.8-2.9); LYMPHOCYTES % 18.4 % (15.0-51.0); MEAN CORPUSCULAR HEMOGLOBIN 20.4 pg (29.0-33.0); MEAN CORPUSCULAR HGB CONC 28.8 g/dl (32.0-37.0); MEAN CORPUSCULAR VOLUME 70.7 fl (82.0-101.0); MONOCYTE # 0.5 10^3/ul (0.3-0.9); MONOCYTES % 5.6 % (0.0-11.0); NEUTROPHIL # 5.7 10^3/ul (1.6-7.5); NEUTROPHILS % 69.5 % (39.0-77.0); RED BLOOD COUNT 4.27 10^6/ul (4.70-6.10); RED CELL DISTRIBUTION WIDTH 20.3 % (11.5-14.5); WHITE BLOOD COUNT 8.2 10^3/ul (4.8-10.8)
[2016-08-31 05:36] LABS: CALCIUM 9.2 mg/dl (8.4-10.2); CREATININE 0.69 mg/dl (0.61-1.24); POTASSIUM 3.2 mmol/L (3.5-5.1)
[2016-08-31 05:38] LABS: PLATELET COUNT 719 10^3/UL (140-415)
[2016-08-31] MEDS: PANTOPRAZOLE (EC) 40 MG TAB PO SCH (06:18)
[2016-08-31 07:00] VITALS: BP 121/60; RESP 18
[2016-08-31] MEDS: NYSTATIN SUSP 5 ML CUP PO SCH ×4 (08:56→21:20)
[2016-08-31] MEDS: RIFAMPIN 300 MG CAP PO SCH (08:56)
[2016-08-31] MEDS: ETHAMBUTOL 400 MG TAB PO SCH (08:57)
[2016-08-31] MEDS: PYRAZINAMIDE 500 MG TAB PO SCH (08:57)
[2016-08-31] MEDS: DOCUSATE SODIUM 100 MG CAP PO SCH ×2 (08:57→21:20)
[2016-08-31] MEDS: ISONIAZID 300 MG TAB PO SCH (08:57)
[2016-08-31] MEDS: FERROUS SULFATE (EC) 325 MG TAB PO SCH ×3 (08:57→21:20)
[2016-08-31] MEDS ORDERED: POTASSIUM CHLORIDE (SR) 20 MEQ TAB PO STA (12:27)
--- NOTE | 2016-08-31 15:47 | PN ---
Date/Time of Note Date/Time of Note DATE: 08/31/16 TIME: 15:46 Assessment/Plan VTE Prophylaxis VTE Prophylaxis Intervention: ambulation Lines/Catheters IV C[facility]ter Type (from [facility]): Saline Lock Urinary Cath still in place: No Assessment/Plan Chief Complaint/Hosp Course Assessment and plan 1. Sepsis with pneumonia and miliary tuberculosis. CT scan of the chest clinical picture of tuberculosis. AFB positive. ID following. continue with abx. 2. Iron deficiency anemia. Continue iron supplement. 3. thrombocytosis. likely reactive. appears to be improving at present DVT Provox: Early ambulation For prophylaxis: Heparin Disposition plan: Patient with miliary TB. continue on abx. infectious disease control team following. d/c when medically cleared. [facility] following Discussed plan of care with Dr. Mckeon Problems: Subjective 24 Hr Interval Summary Free Text/Dictation No specific complaints. No apparent distress Exam/Review of Systems Vital Signs Vitals Vital Signs Date Time Temp Pulse Resp B/P Pulse Ox O2 Delivery O2 Flow Rate FiO2 08/31/16 07:00 98.7 81 18 121/60 98 08/27/16 20:00 Room Air Intake and Output 08/30/16 08/30/16 08/31/16 14:59 22:59 06:59 Intake Total 1560 ml Output Total 600 ml Balance 960 ml Exam Constitutional: alert, oriented Head: normocephalic Neck: supple, No jvd Respiratory: clear to auscultation, normal air movement Cardiovascular: regular rate and rhythm Gastrointestinal: non-tender, soft Musculoskeletal: nl extremities to inspection Extremities: normal pulses 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5 Eosinophils # 0.4 Basophils # 0.1 Nucleated Red Blood Cells # 0.0 Sodium Level 147 H Potassium Level 3.2 L Chloride Level 112 H Carbon Dioxide Level 25 Anion Gap 13 Blood Urea Nitrogen 7 Creatinine 0.69 Glucose Level 83 Calcium Level 9.2 Medications Medications Current Medications Pantoprazole (Protonix Tab) 40 mg DAILY@06 PO Last administered on 08/31/16 06 :18; Admin Dose 40 MG; Start 08/25/16 at 06:00 Acetaminophen (Tylenol Tab) 650 mg Q6H PRN PO PAIN AND OR ELEVATED TEMP Last administered on 08/27/16 08:59; Admin Dose 650 MG; Start 08/25/16 at 03:00 Ondansetron HCl (Zofran Inj) 4 mg Q6H PRN IV NAUSEA AND/OR VOMITING; Start 08/25 at 03:00 Phenol (Cepastat Lozenge) 1 lozenge Q1H PRN MT SORE THROAT Last administered on 08/25/16 03:27; Admin Dose 1 LOZENGE; Start 08/25/16 at 03:00 Guaifenesin (Robitussin Liquid Cup) 200 mg Q4H PRN PO COUGH Last administered on 08/29/16 06:02; Admin Dose 200 MG; Start 08/25/16 at 03:00 Isoniazid (Isoniazid) 300 mg DAILY PO Last administered on 08/31/16 08:57; Admin Dose 300 MG; Start 08/26/16 at 13:00 Rifampin (Rifampin) 600 mg DAILY PO Last administered on 08/31/16 08:56; Admin Dose 600 MG; Start 08/26/16 at 13:00 Ethambutol HCl (Myambutol) 400 mg DAILY PO Last administered on 08/31/16 08:57 ; Admin Dose 400 MG; Start 08/26/16 at 13:00 Pyrazinamide (Pyrazinamide) 2,000 mg DAILY PO Last administered on 08/31/16 08 :57; Admin Dose 2,000 MG; Start 08/26/16 at 14:00 Nystatin (Nystatin Susp) 5 ml QID PO Last administered on 08/31/16 13:21; Admin Dose 5 ML; Start 08/27/16 at 17:00 Ferrous Sulfate (Ferrous Sulfate (Ec)) 325 mg TID PO Last administered on 13:21; Admin Dose 325 MG; Start 08/28/16 at 21:00 Docusate Sodium (Colace) 200 mg BID PO Last administered on 08/31/16 08:57; Admin Dose 200 MG; Start 08/28/16 at 21:00 JOSE APODACA Aug 31, 2016 15:47
--- NOTE | 2016-08-31 19:31 | CONS ---
Date/Time of Note Date/Time of Note DATE: 08/31/16 TIME: 19:29 Consult Date/Type/Reason Admit Date/Time Aug 25, 2016 at 01:03 Initial Consult Date 08/25/16 Type of Consultation: Pulm Subjective No events. Objective Vital Signs Date Time Temp Pulse Resp B/P Pulse Ox O2 Delivery O2 Flow Rate FiO2 08/31/16 07:00 98.7 81 18 121/60 98 08/27/16 20:00 Room Air Intake and Output 08/30/16 08/30/16 08/31/16 15:00 23:00 07:00 Intake Total 1560 ml Output Total 600 ml Balance 960 ml Exam HEENT: Neck supple; no JVD; no LAD CVS: RRR, S1 and S2 CHEST: Decreased BS on L and rhonchi R ABD: Soft, NT, + BS EXT: No c/c/e Results/Medications Result Diagram: 08/31/16 0433 08/31/16 0433 Results 24 hrs Laboratory Tests Test 08/31/16 04:33 White Blood Count 8.2 # Red Blood Count 4.27 L Hemoglobin 8.7 L Hematocrit 30.2 L Mean Corpuscular Volume 70.7 L Mean Corpuscular Hemoglobin 20.4 L Mean Corpuscular Hemoglobin Concent 28.8 L Red Cell Distribution Width 20.3 H Platelet Count 719 #H Mean Platelet Volume 9.0 Neutrophils % 69.5 Lymphocytes % 18.4 Monocytes % 5.6 Eosinophils % 5.0 Basophils % 0.6 Nucleated Red Blood Cells % 0.0 Neutrophils # 5.7 Lymphocytes # 1.5 Monocytes # 0.5 Eosinophils # 0.4 Basophils # 0.1 Nucleated Red Blood Cells # 0.0 Sodium Level 147 H Potassium Level 3.2 L Chloride Level 112 H Carbon Dioxide Level 25 Anion Gap 13 Blood Urea Nitrogen 7 Creatinine 0.69 Glucose Level 83 Calcium Level 9.2 Medications Current Medications Pantoprazole (Protonix Tab) 40 mg DAILY@06 PO Last administered on 08/31/16 06 :18; Admin Dose 40 MG; Start 08/25/16 at 06:00 Acetaminophen (Tylenol Tab) 650 mg Q6H PRN PO PAIN AND OR ELEVATED TEMP Last administered on 08/27/16 08:59; Admin Dose 650 MG; Start 08/25/16 at 03:00 Ondansetron HCl (Zofran Inj) 4 mg Q6H PRN IV NAUSEA AND/OR VOMITING; Start 08/25 at 03:00 Phenol (Cepastat Lozenge) 1 lozenge Q1H PRN MT SORE THROAT Last administered on 08/25/16 03:27; Admin Dose 1 LOZENGE; Start 08/25/16 at 03:00 Guaifenesin (Robitussin Liquid Cup) 200 mg Q4H PRN PO COUGH Last administered on 08/29/16 06:02; Admin Dose 200 MG; Start 08/25/16 at 03:00 Isoniazid (Isoniazid) 300 mg DAILY PO Last administered on 08/31/16 08:57; Admin Dose 300 MG; Start 08/26/16 at 13:00 Rifampin (Rifampin) 600 mg DAILY PO Last administered on 08/31/16 08:56; Admin Dose 600 MG; Start 08/26/16 at 13:00 Ethambutol HCl (Myambutol) 400 mg DAILY PO Last administered on 08/31/16 08:57 ; Admin Dose 400 MG; Start 08/26/16 at 13:00 Pyrazinamide (Pyrazinamide) 2,000 mg DAILY PO Last administered on 08/31/16 08 :57; Admin Dose 2,000 MG; Start 08/26/16 at 14:00 Nystatin (Nystatin Susp) 5 ml QID PO Last administered on 08/31/16 18:10; Admin Dose 5 ML; Start 08/27/16 at 17:00 Ferrous Sulfate (Ferrous Sulfate (Ec)) 325 mg TID PO Last administered on 13:21; Admin Dose 325 MG; Start 08/28/16 at 21:00 Docusate Sodium (Colace) 200 mg BID PO Last administered on 08/31/16 08:57; Admin Dose 200 MG; Start 08/28/16 at 21:00 Assessment/Plan Additional Assessment/Plan IMP: 1. Pulmonary TB with endobronchial spread as demonstrated by tree-in-bud centrilobular micronodular disease. There is no evidence of miliary or hematogenous disease RECS: 1. Continue RIPE/B6 SOLANGE CINTRON MD Aug 31, 2016 19:31
--- NOTE | 2016-08-31 19:44 | CONS ---
Date/Time of Note Date/Time of Note DATE: 08/31/16 TIME: 19:43 Assessment/Plan Assessment/Plan Chief Complaint/Hosp Course SUBJECTIVE: No acute changes. Afebrile, looks comfortable MICROBIOLOGY: Sputum +AFB x2 ANTIMICROBIALS: The patient is on Levaquin, Rifampin, Ethambutol, INH, Pyrazinamide Diflucan PHYSICAL EXAMINATION: GENERAL: This is a well-nourished, well-developed, middle-aged man who is awake, in no distress. HEENT: Head atraumatic, normocephalic. Sclerae anicteric. Buccal mucosa pink. NECK: Supple. CHEST: Rise symmetrical. Breath sounds clear, diminished to bases. HEART: S1, S2. ABDOMEN: Soft, bowel tones present. EXTREMITIES: Without cyanosis. ASSESSMENT: 1. Pulmonary tuberculosis 2. Hypertension. 3. Systemic inflammatory response syndrome. PLAN: Clinically stable, continue RIPE, await for sputum AFB by PCR, f/u [facility] rec-s, continue isolation staff Problems: Consultation Date/Type/Reason Admit Date/Time Aug 25, 2016 at 01:03 Initial Consult Date 08/25/16 Type of Consultation: ID Exam/Review of Systems Vital Signs Vitals Vital Signs Date Time Temp Pulse Resp B/P Pulse Ox O2 Delivery O2 Flow Rate FiO2 08/31/16 07:00 98.7 81 18 121/60 98 08/27/16 20:00 Room Air Intake and Output 08/30/16 08/30/16 08/31/16 14:59 22:59 06:59 Intake Total 1560 ml Output Total 600 ml Balance 960 ml Results Result Diagram: 08/31/16 0433 08/31/16 0433 Results 24 hrs Laboratory Tests Test 08/31/16 04:33 White Blood Count 8.2 # Red Blood Count 4.27 L Hemoglobin 8.7 L Hematocrit 30.2 L Mean Corpuscular Volume 70.7 L Mean Corpuscular Hemoglobin 20.4 L Mean Corpuscular Hemoglobin Concent 28.8 L Red Cell Distribution Width 20.3 H Platelet Count 719 #H Mean Platelet Volume 9.0 Neutrophils % 69.5 Lymphocytes % 18.4 Monocytes % 5.6 Eosinophils % 5.0 Basophils % 0.6 Nucleated Red Blood Cells % 0.0 Neutrophils # 5.7 Lymphocytes # 1.5 Monocytes # 0.5 Eosinophils # 0.4 Basophils # 0.1 Nucleated Red Blood Cells # 0.0 Sodium Level 147 H Potassium Level 3.2 L Chloride Level 112 H Carbon Dioxide Level 25 Anion Gap 13 Blood Urea Nitrogen 7 Creatinine 0.69 Glucose Level 83 Calcium Level 9.2 Medications Medications Current Medications Pantoprazole (Protonix Tab) 40 mg DAILY@06 PO Last administered on 08/31/16 06 :18; Admin Dose 40 MG; Start 08/25/16 at 06:00 Acetaminophen (Tylenol Tab) 650 mg Q6H PRN PO PAIN AND OR ELEVATED TEMP Last administered on 08/27/16 08:59; Admin Dose 650 MG; Start 08/25/16 at 03:00 Ondansetron HCl (Zofran Inj) 4 mg Q6H PRN IV NAUSEA AND/OR VOMITING; Start 08/25 at 03:00 Phenol (Cepastat Lozenge) 1 lozenge Q1H PRN MT SORE THROAT Last administered on 08/25/16 03:27; Admin Dose 1 LOZENGE; Start 08/25/16 at 03:00 Guaifenesin (Robitussin Liquid Cup) 200 mg Q4H PRN PO COUGH Last administered on 08/29/16 06:02; Admin Dose 200 MG; Start 08/25/16 at 03:00 Isoniazid (Isoniazid) 300 mg DAILY PO Last administered on 08/31/16 08:57; Admin Dose 300 MG; Start 08/26/16 at 13:00 Rifampin (Rifampin) 600 mg DAILY PO Last administered on 08/31/16 08:56; Admin Dose 600 MG; Start 08/26/16 at 13:00 Ethambutol HCl (Myambutol) 400 mg DAILY PO Last administered on 08/31/16 08:57 ; Admin Dose 400 MG; Start 08/26/16 at 13:00 Pyrazinamide (Pyrazinamide) 2,000 mg DAILY PO Last administered on 08/31/16 08 :57; Admin Dose 2,000 MG; Start 08/26/16 at 14:00 Nystatin (Nystatin Susp) 5 ml QID PO Last administered on 08/31/16 18:10; Admin Dose 5 ML; Start 08/27/16 at 17:00 Ferrous Sulfate (Ferrous Sulfate (Ec)) 325 mg TID PO Last administered on 13:21; Admin Dose 325 MG; Start 08/28/16 at 21:00 Docusate Sodium (Colace) 200 mg BID PO Last administered on 08/31/16 08:57; Admin Dose 200 MG; Start 08/28/16 at 21:00 KATERYNA QUIÑONES NP Aug 31, 2016 19:44
[2016-08-31 20:00] VITALS: BP 125/72; PULSE 85; RESP 20
[2016-09-01 05:18] LABS: ADD SCAN DIFF NO
[2016-09-01 05:27] LABS: BASOPHIL # 0.1 10^3/ul (0.0-0.1); BASOPHILS % 0.7 % (0.0-2.0); EOSINOPHILS # 0.4 10^3/ul (0.0-0.5); EOSINOPHILS % 4.1 % (0.0-7.0); HEMATOCRIT 30.5 % (42.0-52.0); HEMOGLOBIN 8.9 g/dl (14.0-18.0); LYMPHOCYTES # 1.6 10^3/ul (0.8-2.9); LYMPHOCYTES % 18.5 % (15.0-51.0); MEAN CORPUSCULAR HEMOGLOBIN 20.9 pg (29.0-33.0); MEAN CORPUSCULAR HGB CONC 29.2 g/dl (32.0-37.0); MEAN CORPUSCULAR VOLUME 71.8 fl (82.0-101.0); MONOCYTE # 0.6 10^3/ul (0.3-0.9); MONOCYTES % 6.4 % (0.0-11.0); NEUTROPHILS % 69.6 % (39.0-77.0); PLATELET COUNT 738 10^3/UL (140-415); RED BLOOD COUNT 4.25 10^6/ul (4.70-6.10); RED CELL DISTRIBUTION WIDTH 20.9 % (11.5-14.5); WHITE BLOOD COUNT 8.6 10^3/ul (4.8-10.8)
[2016-09-01 05:46] LABS: ALBUMIN 3.8 g/dl (3.3-4.9); ALBUMIN/GLOBULIN RATIO 0.9; CALCIUM 9.5 mg/dl (8.4-10.2); CREATININE 0.66 mg/dl (0.61-1.24); POTASSIUM 3.5 mmol/L (3.5-5.1)
[2016-09-01] MEDS: PANTOPRAZOLE (EC) 40 MG TAB PO SCH (06:28)
[2016-09-01 08:12] VITALS: BP 137/86; RESP 18
[2016-09-01] MEDS: ETHAMBUTOL 400 MG TAB PO SCH (08:48)
[2016-09-01] MEDS: ISONIAZID 300 MG TAB PO SCH (08:48)
[2016-09-01] MEDS: DOCUSATE SODIUM 100 MG CAP PO SCH ×2 (08:48→20:28)
[2016-09-01] MEDS: FERROUS SULFATE (EC) 325 MG TAB PO SCH ×3 (08:48→20:28)
[2016-09-01] MEDS: PYRAZINAMIDE 500 MG TAB PO SCH (08:49)
[2016-09-01] MEDS: RIFAMPIN 300 MG CAP PO SCH (08:49)
[2016-09-01] MEDS: NYSTATIN SUSP 5 ML CUP PO SCH ×4 (09:14→20:28)
--- NOTE | 2016-09-01 14:11 | PN ---
Date/Time of Note Date/Time of Note DATE: 09/01/16 TIME: 14:10 Assessment/Plan VTE Prophylaxis VTE Prophylaxis Intervention: SCD's Lines/Catheters [facility]from [facility] Saline Lock Urinary Cath still in place: No Assessment/Plan Chief Complaint/Hosp Course Assessment and plan 1. Sepsis with pneumonia and miliary tuberculosis. CT scan of the chest clinical picture of tuberculosis. AFB positive. ID following. continue with abx. 2. Iron deficiency anemia. Continue iron supplement. 3. thrombocytosis. likely reactive. appears to be improving at present DVT Provox: Early ambulation For prophylaxis: Heparin Disposition plan: Patient with miliary TB. continue on abx. infectious disease control team following. d/c when medically cleared. [facility] department following. continue with ID recs. check AM labs Discussed plan of care with Dr. Mckeon Problems: Subjective 24 Hr Interval Summary Free Text/Dictation comfortable at present. no specific complaints Exam/Review of Systems Vital Signs Vitals Vital Signs Date Time Temp Pulse Resp B/P Pulse Ox O2 Delivery O2 Flow Rate FiO2 09/01/16 08:12 98.3 86 18 137/86 94 08/31/16 20:00 Room Air Intake and Output 08/31/16 08/31/16 09/01/16 15:00 23:00 07:00 Intake Total 1160 ml 1100 ml 480 ml Output Total 600 ml 800 ml 500 ml Balance 560 ml 300 ml -20 ml Exam Constitutional: alert, oriented Psych: no complaints Respiratory: clear to auscultation, normal air movement Cardiovascular: regular rate and rhythm Gastrointestinal: non-tender, soft Musculoskeletal: nl extremities to inspection Extremities: normal pulses 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, nl mental status, nl speech Skin: nl turgor Results Result Diagram: 09/01/16 0439 09/01/16 0439 Results 24 hrs Laboratory Tests Test 09/01/16 04:39 White Blood Count 8.6 Red Blood Count 4.25 L Hemoglobin 8.9 L Hematocrit 30.5 L Mean Corpuscular Volume 71.8 L Mean Corpuscular Hemoglobin 20.9 L Mean Corpuscular Hemoglobin Concent 29.2 L Red Cell Distribution Width 20.9 H Platelet Count 738 H Mean Platelet Volume 9.0 Neutrophils % 69.6 Lymphocytes % 18.5 Monocytes % 6.4 Eosinophils % 4.1 Basophils % 0.7 Nucleated Red Blood Cells % 0.0 Neutrophils # 6.0 Lymphocytes # 1.6 Monocytes # 0.6 Eosinophils # 0.4 Basophils # 0.1 Nucleated Red Blood Cells # 0.0 Sodium Level 146 H Potassium Level 3.5 Chloride Level 111 H Carbon Dioxide Level 23 Anion Gap 16 Blood Urea Nitrogen 6 L Creatinine 0.66 Glucose Level 80 Calcium Level 9.5 Total Bilirubin 0.0 L Direct Bilirubin 0.00 Indirect Bilirubin 0.0 Aspartate Amino Transf (AST/SGOT) 19 Alanine Aminotransferase (ALT/SGPT) 28 Alkaline Phosphatase 134 H Total Protein 8.0 Albumin 3.8 Globulin 4.20 H Albumin/Globulin Ratio 0.90 Medications Medications Current Medications Pantoprazole (Protonix Tab) 40 mg DAILY@06 PO Last administered on 09/01/16 06 :28; Admin Dose 40 MG; Start 08/25/16 at 06:00 Acetaminophen (Tylenol Tab) 650 mg Q6H PRN PO PAIN AND OR ELEVATED TEMP Last administered on 08/27/16 08:59; Admin Dose 650 MG; Start 08/25/16 at 03:00 Ondansetron HCl (Zofran Inj) 4 mg Q6H PRN IV NAUSEA AND/OR VOMITING; Start 08/25 at 03:00 Phenol (Cepastat Lozenge) 1 lozenge Q1H PRN MT SORE THROAT Last administered on 08/25/16 03:27; Admin Dose 1 LOZENGE; Start 08/25/16 at 03:00 Guaifenesin (Robitussin Liquid Cup) 200 mg Q4H PRN PO COUGH Last administered on 08/29/16 06:02; Admin Dose 200 MG; Start 08/25/16 at 03:00 Isoniazid (Isoniazid) 300 mg DAILY PO Last administered on 09/01/16 08:48; Admin Dose 300 MG; Start 08/26/16 at 13:00 Rifampin (Rifampin) 600 mg DAILY PO Last administered on 09/01/16 08:49; Admin Dose 600 MG; Start 08/26/16 at 13:00 Ethambutol HCl (Myambutol) 400 mg DAILY PO Last administered on 09/01/16 08:48 ; Admin Dose 400 MG; Start 08/26/16 at 13:00 Pyrazinamide (Pyrazinamide) 2,000 mg DAILY PO Last administered on 09/01/16 08 :49; Admin Dose 2,000 MG; Start 08/26/16 at 14:00 Nystatin (Nystatin Susp) 5 ml QID PO Last administered on 09/01/16 13:29; Admin Dose 5 ML; Start 08/27/16 at 17:00 Ferrous Sulfate (Ferrous Sulfate (Ec)) 325 mg TID PO Last administered on 13:29; Admin Dose 325 MG; Start 08/28/16 at 21:00 Docusate Sodium (Colace) 200 mg BID PO Last administered on 09/01/16 08:48; Admin Dose 200 MG; Start 08/28/16 at 21:00 JOSE APODACA Sep 01, 2016 14:11
--- NOTE | 2016-09-01 18:41 | CONS ---
Date/Time of Note Date/Time of Note DATE: 09/01/16 TIME: 18:40 Consult Date/Type/Reason Admit Date/Time Aug 25, 2016 at 01:03 Initial Consult Date 08/25/16 Type of Consultation: Pulm Subjective no events. comfortable on RA Objective Vital Signs Date Time Temp Pulse Resp B/P Pulse Ox O2 Delivery O2 Flow Rate FiO2 09/01/16 08:12 98.3 86 18 137/86 94 08/31/16 20:00 Room Air Intake and Output 08/31/16 08/31/16 09/01/16 15:00 23:00 07:00 Intake Total 1160 ml 1100 ml 480 ml Output Total 600 ml 800 ml 500 ml Balance 560 ml 300 ml -20 ml Exam HEENT: Neck supple; no JVD; no LAD CVS: RRR, S1 and S2 CHEST: Decreased BS on L and rhonchi R ABD: Soft, NT, + BS EXT: No c/c/e Results/Medications Result Diagram: 09/01/16 0439 09/01/16 0439 Results 24 hrs Laboratory Tests Test 09/01/16 04:39 White Blood Count 8.6 Red Blood Count 4.25 L Hemoglobin 8.9 L Hematocrit 30.5 L Mean Corpuscular Volume 71.8 L Mean Corpuscular Hemoglobin 20.9 L Mean Corpuscular Hemoglobin Concent 29.2 L Red Cell Distribution Width 20.9 H Platelet Count 738 H Mean Platelet Volume 9.0 Neutrophils % 69.6 Lymphocytes % 18.5 Monocytes % 6.4 Eosinophils % 4.1 Basophils % 0.7 Nucleated Red Blood Cells % 0.0 Neutrophils # 6.0 Lymphocytes # 1.6 Monocytes # 0.6 Eosinophils # 0.4 Basophils # 0.1 Nucleated Red Blood Cells # 0.0 Sodium Level 146 H Potassium Level 3.5 Chloride Level 111 H Carbon Dioxide Level 23 Anion Gap 16 Blood Urea Nitrogen 6 L Creatinine 0.66 Glucose Level 80 Calcium Level 9.5 Total Bilirubin 0.0 L Direct Bilirubin 0.00 Indirect Bilirubin 0.0 Aspartate Amino Transf (AST/SGOT) 19 Alanine Aminotransferase (ALT/SGPT) 28 Alkaline Phosphatase 134 H Total Protein 8.0 Albumin 3.8 Globulin 4.20 H Albumin/Globulin Ratio 0.90 Medications Current Medications Pantoprazole (Protonix Tab) 40 mg DAILY@06 PO Last administered on 09/01/16 06 :28; Admin Dose 40 MG; Start 08/25/16 at 06:00 Acetaminophen (Tylenol Tab) 650 mg Q6H PRN PO PAIN AND OR ELEVATED TEMP Last administered on 08/27/16 08:59; Admin Dose 650 MG; Start 08/25/16 at 03:00 Ondansetron HCl (Zofran Inj) 4 mg Q6H PRN IV NAUSEA AND/OR VOMITING; Start 08/25 at 03:00 Phenol (Cepastat Lozenge) 1 lozenge Q1H PRN MT SORE THROAT Last administered on 08/25/16 03:27; Admin Dose 1 LOZENGE; Start 08/25/16 at 03:00 Guaifenesin (Robitussin Liquid Cup) 200 mg Q4H PRN PO COUGH Last administered on 08/29/16 06:02; Admin Dose 200 MG; Start 08/25/16 at 03:00 Isoniazid (Isoniazid) 300 mg DAILY PO Last administered on 09/01/16 08:48; Admin Dose 300 MG; Start 08/26/16 at 13:00 Rifampin (Rifampin) 600 mg DAILY PO Last administered on 09/01/16 08:49; Admin Dose 600 MG; Start 08/26/16 at 13:00 Ethambutol HCl (Myambutol) 400 mg DAILY PO Last administered on 09/01/16 08:48 ; Admin Dose 400 MG; Start 08/26/16 at 13:00 Pyrazinamide (Pyrazinamide) 2,000 mg DAILY PO Last administered on 09/01/16 08 :49; Admin Dose 2,000 MG; Start 08/26/16 at 14:00 Nystatin (Nystatin Susp) 5 ml QID PO Last administered on 09/01/16 16:40; Admin Dose 5 ML; Start 08/27/16 at 17:00 Ferrous Sulfate (Ferrous Sulfate (Ec)) 325 mg TID PO Last administered on 13:29; Admin Dose 325 MG; Start 08/28/16 at 21:00 Docusate Sodium (Colace) 200 mg BID PO Last administered on 09/01/16 08:48; Admin Dose 200 MG; Start 08/28/16 at 21:00 Assessment/Plan Additional Assessment/Plan IMP: 1. Pulmonary TB with endobronchial spread as demonstrated by tree-in-bud centrilobular micronodular disease. There is no evidence of miliary or hematogenous disease RECS: 1. Continue RIPE/B6 2. f/u TB PCR SOLANGE CINTRON MD Sep 01, 2016 18:41
[2016-09-01 19:37] VITALS: BP 126/72; RESP 18
--- NOTE | 2016-09-01 20:22 | CONS ---
Date/Time of Note Date/Time of Note DATE: 09/01/16 TIME: 20:21 Assessment/Plan Assessment/Plan Chief Complaint/Hosp Course SUBJECTIVE: No acute changes. No SOB, no fevers, looks comfortable MICROBIOLOGY: Sputum +AFB x2 ANTIMICROBIALS: The patient is on Levaquin, Rifampin, Ethambutol, INH, Pyrazinamide Diflucan PHYSICAL EXAMINATION: GENERAL: This is a well-nourished, well-developed, middle-aged man who is awake, in no distress. HEENT: Head atraumatic, normocephalic. Sclerae anicteric. Buccal mucosa pink. NECK: Supple. CHEST: Rise symmetrical. Breath sounds clear, diminished to bases. HEART: S1, S2. ABDOMEN: Soft, bowel tones present. EXTREMITIES: Without cyanosis. ASSESSMENT: 1. Pulmonary tuberculosis 2. Hypertension. 3. Systemic inflammatory response syndrome. PLAN: Clinically stable, continue RIPE, await for sputum AFB by PCR, f/u [facility] rec-s, continue isolation staff Problems: Consultation Date/Type/Reason Admit Date/Time Aug 25, 2016 at 01:03 Initial Consult Date 08/25/16 Type of Consultation: ID Exam/Review of Systems Vital Signs Vitals Vital Signs Date Time Temp Pulse Resp B/P Pulse Ox O2 Delivery O2 Flow Rate FiO2 09/01/16 19:37 98.5 93 18 126/72 95 08/31/16 20:00 Room Air Intake and Output 08/31/16 08/31/16 09/01/16 15:00 23:00 07:00 Intake Total 1160 ml 1100 ml 480 ml Output Total 600 ml 800 ml 500 ml Balance 560 ml 300 ml -20 ml Results Result Diagram: 09/01/16 0439 09/01/16 0439 Results 24 hrs Laboratory Tests Test 09/01/16 04:39 White Blood Count 8.6 Red Blood Count 4.25 L Hemoglobin 8.9 L Hematocrit 30.5 L Mean Corpuscular Volume 71.8 L Mean Corpuscular Hemoglobin 20.9 L Mean Corpuscular Hemoglobin Concent 29.2 L Red Cell Distribution Width 20.9 H Platelet Count 738 H Mean Platelet Volume 9.0 Neutrophils % 69.6 Lymphocytes % 18.5 Monocytes % 6.4 Eosinophils % 4.1 Basophils % 0.7 Nucleated Red Blood Cells % 0.0 Neutrophils # 6.0 Lymphocytes # 1.6 Monocytes # 0.6 Eosinophils # 0.4 Basophils # 0.1 Nucleated Red Blood Cells # 0.0 Sodium Level 146 H Potassium Level 3.5 Chloride Level 111 H Carbon Dioxide Level 23 Anion Gap 16 Blood Urea Nitrogen 6 L Creatinine 0.66 Glucose Level 80 Calcium Level 9.5 Total Bilirubin 0.0 L Direct Bilirubin 0.00 Indirect Bilirubin 0.0 Aspartate Amino Transf (AST/SGOT) 19 Alanine Aminotransferase (ALT/SGPT) 28 Alkaline Phosphatase 134 H Total Protein 8.0 Albumin 3.8 Globulin 4.20 H Albumin/Globulin Ratio 0.90 Medications Medications Current Medications Pantoprazole (Protonix Tab) 40 mg DAILY@06 PO Last administered on 09/01/16 06 :28; Admin Dose 40 MG; Start 08/25/16 at 06:00 Acetaminophen (Tylenol Tab) 650 mg Q6H PRN PO PAIN AND OR ELEVATED TEMP Last administered on 08/27/16 08:59; Admin Dose 650 MG; Start 08/25/16 at 03:00 Ondansetron HCl (Zofran Inj) 4 mg Q6H PRN IV NAUSEA AND/OR VOMITING; Start 08/25 at 03:00 Phenol (Cepastat Lozenge) 1 lozenge Q1H PRN MT SORE THROAT Last administered on 08/25/16 03:27; Admin Dose 1 LOZENGE; Start 08/25/16 at 03:00 Guaifenesin (Robitussin Liquid Cup) 200 mg Q4H PRN PO COUGH Last administered on 08/29/16 06:02; Admin Dose 200 MG; Start 08/25/16 at 03:00 Isoniazid (Isoniazid) 300 mg DAILY PO Last administered on 09/01/16 08:48; Admin Dose 300 MG; Start 08/26/16 at 13:00 Rifampin (Rifampin) 600 mg DAILY PO Last administered on 09/01/16 08:49; Admin Dose 600 MG; Start 08/26/16 at 13:00 Ethambutol HCl (Myambutol) 400 mg DAILY PO Last administered on 09/01/16 08:48 ; Admin Dose 400 MG; Start 08/26/16 at 13:00 Pyrazinamide (Pyrazinamide) 2,000 mg DAILY PO Last administered on 09/01/16 08 :49; Admin Dose 2,000 MG; Start 08/26/16 at 14:00 Nystatin (Nystatin Susp) 5 ml QID PO Last administered on 09/01/16 16:40; Admin Dose 5 ML; Start 08/27/16 at 17:00 Ferrous Sulfate (Ferrous Sulfate (Ec)) 325 mg TID PO Last administered on 13:29; Admin Dose 325 MG; Start 08/28/16 at 21:00 Docusate Sodium (Colace) 200 mg BID PO Last administered on 09/01/16 08:48; Admin Dose 200 MG; Start 08/28/16 at 21:00 KATERYNA QUIÑONES NP Sep 01, 2016 20:22
[2016-09-02 05:43] LABS: ADD SCAN DIFF NO
[2016-09-02] MEDS: PANTOPRAZOLE (EC) 40 MG TAB PO SCH (05:56)
[2016-09-02 06:02] LABS: ABNORMAL IP MESSAGE 1; BASOPHILS % 0.4 % (0.0-2.0); EOSINOPHILS # 0.2 10^3/ul (0.0-0.5); EOSINOPHILS % 2.3 % (0.0-7.0); HEMATOCRIT 32.4 % (42.0-52.0); HEMOGLOBIN 9.3 g/dl (14.0-18.0); LYMPHOCYTES # 1.4 10^3/ul (0.8-2.9); LYMPHOCYTES % 15.1 % (15.0-51.0); MEAN CORPUSCULAR HEMOGLOBIN 20.7 pg (29.0-33.0); MEAN CORPUSCULAR HGB CONC 28.7 g/dl (32.0-37.0); MEAN PLATELET VOLUME 8.9 fl (7.4-10.4); MONOCYTE # 0.6 10^3/ul (0.3-0.9); MONOCYTES % 6.1 % (0.0-11.0); NEUTROPHIL # 6.9 10^3/ul (1.6-7.5); NEUTROPHILS % 75.6 % (39.0-77.0); PLATELET COUNT 756 10^3/UL (140-415); RED CELL DISTRIBUTION WIDTH 21.4 % (11.5-14.5); WHITE BLOOD COUNT 9.2 10^3/ul (4.8-10.8)
[2016-09-02 06:22] LABS: CALCIUM 9.5 mg/dl (8.4-10.2); CREATININE 0.68 mg/dl (0.61-1.24); POTASSIUM 3.3 mmol/L (3.5-5.1)
[2016-09-02 08:22] VITALS: BP 130/77; RESP 16
[2016-09-02] MEDS: NYSTATIN SUSP 5 ML CUP PO SCH ×4 (09:20→20:54)
[2016-09-02] MEDS: RIFAMPIN 300 MG CAP PO SCH (09:20)
[2016-09-02] MEDS: FERROUS SULFATE (EC) 325 MG TAB PO SCH (09:20)
[2016-09-02] MEDS: PYRAZINAMIDE 500 MG TAB PO SCH (09:20)
[2016-09-02] MEDS: DOCUSATE SODIUM 100 MG CAP PO SCH ×2 (09:21→20:54)
[2016-09-02] MEDS: ISONIAZID 300 MG TAB PO SCH (09:21)
[2016-09-02] MEDS: ETHAMBUTOL 400 MG TAB PO SCH (09:21)
--- NOTE | 2016-09-02 10:05 | PN ---
Date/Time of Note Date/Time of Note DATE: 09/02/16 TIME: 09:59 Assessment/Plan VTE Prophylaxis VTE Prophylaxis Intervention: SCD's Lines/Catheters [facility] Peripheral IV Urinary Cath still in place: No Assessment/Plan Assessment/Plan 35-year-old male with 1. Miliary tuberculosis 2. Sepsis secondary to #1 3. Iron deficiency anemia 4. Dyslipidemia with low HDL 5. Hypokalemia 6. Reactive thrombocytosis PLAN: * continue treatment plan per LAC and ID * IV iron replacement * high fibre diet with fishoil * replace lytes as indicated * Continue supportive care Subjective 24 Hr Interval Summary Free Text/Dictation patient seen no coughing, no chest pain Exam/Review of Systems Vital Signs Vitals Vital Signs Date Time Temp Pulse Resp B/P Pulse Ox O2 Delivery O2 Flow Rate FiO2 09/02/16 08:22 98.0 88 16 130/77 96 08/31/16 20:00 Room Air Intake and Output 09/01/16 09/01/16 09/02/16 15:00 23:00 07:00 Intake Total 500 ml 880 ml Output Total 900 ml 1200 ml Balance -400 ml -320 ml Exam Constitutional: alert, oriented Psych: no complaints Respiratory: clear to auscultation, normal air movement Cardiovascular: regular rate and rhythm Gastrointestinal: non-tender, soft Musculoskeletal: nl extremities to inspection Extremities: normal pulses Neurological: no gross focal deficits Results Result Diagram: 09/02/16 0415 09/02/16 0415 Results 24 hrs Laboratory Tests Test 09/02/16 04:15 White Blood Count 9.2 Red Blood Count 4.50 L Hemoglobin 9.3 L Hematocrit 32.4 L Mean Corpuscular Volume 72.0 L Mean Corpuscular Hemoglobin 20.7 L Mean Corpuscular Hemoglobin Concent 28.7 L Red Cell Distribution Width 21.4 H Platelet Count 756 H Mean Platelet Volume 8.9 Neutrophils % 75.6 Lymphocytes % 15.1 Monocytes % 6.1 Eosinophils % 2.3 Basophils % 0.4 Nucleated Red Blood Cells % 0.0 Neutrophils # 6.9 Lymphocytes # 1.4 Monocytes # 0.6 Eosinophils # 0.2 Basophils # 0.0 Nucleated Red Blood Cells # 0.0 Sodium Level 144 Potassium Level 3.3 L Chloride Level 109 Carbon Dioxide Level 24 Anion Gap 14 Blood Urea Nitrogen 6 L Creatinine 0.68 Glucose Level 78 Calcium Level 9.5 Medications Medications Current Medications Pantoprazole (Protonix Tab) 40 mg DAILY@06 PO Last administered on 09/02/16 05 :56; Admin Dose 40 MG; Start 08/25/16 at 06:00 Acetaminophen (Tylenol Tab) 650 mg Q6H PRN PO PAIN AND OR ELEVATED TEMP Last administered on 08/27/16 08:59; Admin Dose 650 MG; Start 08/25/16 at 03:00 Ondansetron HCl (Zofran Inj) 4 mg Q6H PRN IV NAUSEA AND/OR VOMITING; Start 08/25 at 03:00 Phenol (Cepastat Lozenge) 1 lozenge Q1H PRN MT SORE THROAT Last administered on 08/25/16 03:27; Admin Dose 1 LOZENGE; Start 08/25/16 at 03:00 Guaifenesin (Robitussin Liquid Cup) 200 mg Q4H PRN PO COUGH Last administered on 08/29/16 06:02; Admin Dose 200 MG; Start 08/25/16 at 03:00 Isoniazid (Isoniazid) 300 mg DAILY PO Last administered on 09/02/16 09:21; Admin Dose 300 MG; Start 08/26/16 at 13:00 Rifampin (Rifampin) 600 mg DAILY PO Last administered on 09/02/16 09:20; Admin Dose 600 MG; Start 08/26/16 at 13:00 Ethambutol HCl (Myambutol) 400 mg DAILY PO Last administered on 09/02/16 09:21 ; Admin Dose 400 MG; Start 08/26/16 at 13:00 Pyrazinamide (Pyrazinamide) 2,000 mg DAILY PO Last administered on 09/02/16 09 :20; Admin Dose 2,000 MG; Start 08/26/16 at 14:00 Nystatin (Nystatin Susp) 5 ml QID PO Last administered on 09/02/16 09:20; Admin Dose 5 ML; Start 08/27/16 at 17:00 Ferrous Sulfate (Ferrous Sulfate (Ec)) 325 mg TID PO Last administered on 09:20; Admin Dose 325 MG; Start 08/28/16 at 21:00 Docusate Sodium 200 mg 200 mg BID PO Last administered on 09/02/16 09:21; Admin Dose 200 MG; Start 08/28/16 at 21:00 Potassium Chloride (KCl 40 MEQ/250 ML NS) 250 ml @ 62.5 mls/hr ONCE ONCE IVPB ; Start 09/02/16 at 10:00; Stop 09/02/16 at 13:59; Status NADYA SMITH Sep 02, 2016 10:05
[2016-09-02] MEDS ORDERED: POTASSIUM CHLORIDE 250 ML IVPB ONE (12:00)
[2016-09-02] MEDS: SOD FERRIC GLUC COMPLX 125 MG in SOD CHLORIDE 0.9% 100 ML IVPB SCH (12:36)
--- NOTE | 2016-09-02 12:47 | CONS ---
Date/Time of Note Date/Time of Note DATE: 09/02/16 TIME: 12:41 Assessment/Plan Assessment/Plan Chief Complaint/Hosp Course SUBJECTIVE: No acute changes. No SOB, no fevers, looks comfortable MICROBIOLOGY: Sputum +AFB x 3 ANTIMICROBIALS: The patient is on Levaquin, Rifampin, Ethambutol, INH, Pyrazinamide Diflucan PHYSICAL EXAMINATION: GENERAL: This is a well-nourished, well-developed, middle-aged man who is awake, in no distress. HEENT: Head atraumatic, normocephalic. Sclerae anicteric. Buccal mucosa pink. NECK: Supple. CHEST: Rise symmetrical. Breath sounds clear, diminished to bases. HEART: S1, S2. ABDOMEN: Soft, bowel tones present. EXTREMITIES: Without cyanosis. ASSESSMENT: 1. Pulmonary tuberculosis 2. Hypertension. 3. Systemic inflammatory response syndrome. PLAN: Clinically stable, continue RIPE, Sputum AFB x 3 positive. We will follow with [facility]. Continue isolation . We will monitor liver function test. staff. Problems: Consultation Date/Type/Reason Admit Date/Time Aug 25, 2016 at 01:03 Initial Consult Date 08/25/16 Type of Consultation: ID Exam/Review of Systems Vital Signs Vitals Vital Signs Date Time Temp Pulse Resp B/P Pulse Ox O2 Delivery O2 Flow Rate FiO2 09/02/16 08:22 98.0 88 16 130/77 96 08/31/16 20:00 Room Air Intake and Output 09/01/16 09/01/16 09/02/16 15:00 23:00 07:00 Intake Total 500 ml 880 ml Output Total 900 ml 1200 ml Balance -400 ml -320 ml Results Result Diagram: 09/02/16 0415 09/02/16 0415 Results 24 hrs Laboratory Tests Test 09/02/16 04:15 White Blood Count 9.2 Red Blood Count 4.50 L Hemoglobin 9.3 L Hematocrit 32.4 L Mean Corpuscular Volume 72.0 L Mean Corpuscular Hemoglobin 20.7 L Mean Corpuscular Hemoglobin Concent 28.7 L Red Cell Distribution Width 21.4 H Platelet Count 756 H Mean Platelet Volume 8.9 Neutrophils % 75.6 Lymphocytes % 15.1 Monocytes % 6.1 Eosinophils % 2.3 Basophils % 0.4 Nucleated Red Blood Cells % 0.0 Neutrophils # 6.9 Lymphocytes # 1.4 Monocytes # 0.6 Eosinophils # 0.2 Basophils # 0.0 Nucleated Red Blood Cells # 0.0 Sodium Level 144 Potassium Level 3.3 L Chloride Level 109 Carbon Dioxide Level 24 Anion Gap 14 Blood Urea Nitrogen 6 L Creatinine 0.68 Glucose Level 78 Calcium Level 9.5 Medications Medications Current Medications Pantoprazole (Protonix Tab) 40 mg DAILY@06 PO Last administered on 09/02/16 05 :56; Admin Dose 40 MG; Start 08/25/16 at 06:00 Acetaminophen (Tylenol Tab) 650 mg Q6H PRN PO PAIN AND OR ELEVATED TEMP Last administered on 08/27/16 08:59; Admin Dose 650 MG; Start 08/25/16 at 03:00 Ondansetron HCl (Zofran Inj) 4 mg Q6H PRN IV NAUSEA AND/OR VOMITING; Start 08/25 at 03:00 Phenol (Cepastat Lozenge) 1 lozenge Q1H PRN MT SORE THROAT Last administered on 08/25/16 03:27; Admin Dose 1 LOZENGE; Start 08/25/16 at 03:00 Guaifenesin (Robitussin Liquid Cup) 200 mg Q4H PRN PO COUGH Last administered on 08/29/16 06:02; Admin Dose 200 MG; Start 08/25/16 at 03:00 Isoniazid (Isoniazid) 300 mg DAILY PO Last administered on 09/02/16 09:21; Admin Dose 300 MG; Start 08/26/16 at 13:00 Rifampin (Rifampin) 600 mg DAILY PO Last administered on 09/02/16 09:20; Admin Dose 600 MG; Start 08/26/16 at 13:00 Ethambutol HCl (Myambutol) 400 mg DAILY PO Last administered on 09/02/16 09:21 ; Admin Dose 400 MG; Start 08/26/16 at 13:00 Pyrazinamide (Pyrazinamide) 2,000 mg DAILY PO Last administered on 09/02/16 09 :20; Admin Dose 2,000 MG; Start 08/26/16 at 14:00 Nystatin (Nystatin Susp) 5 ml QID PO Last administered on 09/02/16 12:36; Admin Dose 5 ML; Start 08/27/16 at 17:00 Docusate Sodium 200 mg 200 mg BID PO Last administered on 09/02/16 09:21; Admin Dose 200 MG; Start 08/28/16 at 21:00 Potassium Chloride 250 ml @ 62.5 mls/hr ONCE ONCE IVPB ; Start 09/02/16 at 12: 00; Stop 09/02/16 at 15:59 Ferric Sodium Gluconate Complex/ Sodium Chloride (Ferrlecit/NS) 110 ml @ 110 mls/hr Q24H IVPB Last administered on 09/02/16 12:36; Admin Dose 110 MLS/HR; Start 09/02/16 at 12:00; Stop 09/06/16 at 12:59 REJI HILARIO NP Sep 02, 2016 12:46
[2016-09-02] MEDS ORDERED: ETHAMBUTOL 400 MG TAB PO SCH (18:00)
[2016-09-02 19:30] VITALS: BP 121/62; RESP 20
[2016-09-03] MEDS: PANTOPRAZOLE (EC) 40 MG TAB PO SCH (05:25)
--- NOTE | 2016-09-03 09:07 | PN ---
Date/Time of Note Date/Time of Note DATE: 09/03/16 TIME: 09:06 Assessment/Plan VTE Prophylaxis VTE Prophylaxis Intervention: ambulation, SCD's Lines/Catheters IV Catheter Type (from Nrs): Saline Lock Urinary Cath still in place: No Assessment/Plan Assessment/Plan 35-year-old male with 1. Miliary tuberculosis 2. Sepsis secondary to #1 3. Iron deficiency anemia 4. Dyslipidemia with low HDL 5. Hypokalemia 6. Reactive thrombocytosis PLAN: * continue treatment plan per LAC and ID * IV iron replacement * high fibre diet with fishoil * replace lytes as indicated * Continue supportive care Subjective 24 Hr Interval Summary Free Text/Dictation patient desirous of discharge Exam/Review of Systems Vital Signs Vitals Vital Signs Date Time Temp Pulse Resp B/P Pulse Ox O2 Delivery O2 Flow Rate FiO2 09/02/16 19:30 98.2 97 20 121/62 96 08/31/16 20:00 Room Air Intake and Output 09/02/16 09/02/16 09/03/16 15:00 23:00 07:00 Intake Total 110 ml 1610 ml 500 ml Balance 110 ml 1610 ml 500 ml Exam Constitutional: alert, oriented Psych: no complaints Respiratory: clear to auscultation, normal air movement Cardiovascular: regular rate and rhythm Gastrointestinal: non-tender, soft Musculoskeletal: nl extremities to inspection Extremities: normal pulses Neurological: no gross focal deficits Results Result Diagram: 09/02/16 0415 09/02/16 0415 Medications Medications Current Medications Pantoprazole (Protonix Tab) 40 mg DAILY@06 PO Last administered on 09/03/16 05 :25; Admin Dose 40 MG; Start 08/25/16 at 06:00 Acetaminophen (Tylenol Tab) 650 mg Q6H PRN PO PAIN AND OR ELEVATED TEMP Last administered on 08/27/16 08:59; Admin Dose 650 MG; Start 08/25/16 at 03:00 Ondansetron HCl (Zofran Inj) 4 mg Q6H PRN IV NAUSEA AND/OR VOMITING; Start 08/25 at 03:00 Phenol (Cepastat Lozenge) 1 lozenge Q1H PRN MT SORE THROAT Last administered on 08/25/16 03:27; Admin Dose 1 LOZENGE; Start 08/25/16 at 03:00 Guaifenesin (Robitussin Liquid Cup) 200 mg Q4H PRN PO COUGH Last administered on 08/29/16 06:02; Admin Dose 200 MG; Start 08/25/16 at 03:00 Isoniazid (Isoniazid) 300 mg DAILY PO Last administered on 09/02/16 09:21; Admin Dose 300 MG; Start 08/26/16 at 13:00 Rifampin (Rifampin) 600 mg DAILY PO Last administered on 09/02/16 09:20; Admin Dose 600 MG; Start 08/26/16 at 13:00 Pyrazinamide (Pyrazinamide) 2,000 mg DAILY PO Last administered on 09/02/16 09 :20; Admin Dose 2,000 MG; Start 08/26/16 at 14:00 Nystatin (Nystatin Susp) 5 ml QID PO Last administered on 09/02/16 20:54; Admin Dose 5 ML; Start 08/27/16 at 17:00 Docusate Sodium 200 mg 200 mg BID PO Last administered on 09/02/16 20:54; Admin Dose 200 MG; Start 08/28/16 at 21:00 Ferric Sodium Gluconate Complex/ Sodium Chloride (Ferrlecit/NS) 110 ml @ 110 mls/hr Q24H IVPB Last administered on 09/02/16 12:36; Admin Dose 110 MLS/HR; Start 09/02/16 at 12:00; Stop 09/06/16 at 12:59 Ethambutol HCl (Myambutol) 1,200 mg DAILY PO ; Start 09/03/16 at 09:00 NADYA HUTCHISON Sep 03, 2016 09:07
[2016-09-03] MEDS: NYSTATIN SUSP 5 ML CUP PO SCH ×4 (09:27→20:23)
[2016-09-03] MEDS: RIFAMPIN 300 MG CAP PO SCH (09:28)
[2016-09-03] MEDS: ETHAMBUTOL 400 MG TAB PO SCH (09:28)
[2016-09-03] MEDS: DOCUSATE SODIUM 100 MG CAP PO SCH ×2 (09:28→20:23)
[2016-09-03] MEDS: ISONIAZID 300 MG TAB PO SCH (09:28)
[2016-09-03] MEDS: PYRAZINAMIDE 500 MG TAB PO SCH (09:30)
--- NOTE | 2016-09-03 12:11 | CONS ---
Date/Time of Note Date/Time of Note DATE: 09/03/16 TIME: 12:10 Assessment/Plan Assessment/Plan Chief Complaint/Hosp Course SUBJECTIVE: No acute changes, no fevers, looks comfortable ANTIMICROBIALS: The patient is on Rifampin, Ethambutol, INH, Pyrazinamide PHYSICAL EXAMINATION: GENERAL: This is a well-nourished, well-developed, middle-aged man who is awake, in no distress. HEENT: Head atraumatic, normocephalic. Sclerae anicteric. Buccal mucosa pink. NECK: Supple. CHEST: Rise symmetrical. Breath sounds clear, diminished to bases. HEART: S1, S2. ABDOMEN: Soft, bowel tones present. EXTREMITIES: Without cyanosis. ASSESSMENT: 1. Pulmonary tuberculosis 2. Hypertension. 3. S/p systemic inflammatory response syndrome. PLAN: Clinically stable, continue RIPE, await for sputum AFB by PCR and f/u [facility] rec-s, continue isolation [facility] staff Problems: Consultation Date/Type/Reason Admit Date/Time Aug 25, 2016 at 01:03 Initial Consult Date 08/25/16 Type of Consultation: ID Exam/Review of Systems Vital Signs Vitals Vital Signs Date Time Temp Pulse Resp B/P Pulse Ox O2 Delivery O2 Flow Rate FiO2 09/02/16 19:30 98.2 97 20 121/62 96 08/31/16 20:00 Room Air Intake and Output 09/02/16 09/02/16 09/03/16 15:00 23:00 07:00 Intake Total 110 ml 1610 ml 500 ml Balance 110 ml 1610 ml 500 ml Results Result Diagram: 09/02/16 0415 09/02/16 0415 Medications Medications Current Medications Pantoprazole (Protonix Tab) 40 mg DAILY@06 PO Last administered on 09/03/16 05 :25; Admin Dose 40 MG; Start 08/25/16 at 06:00 Acetaminophen (Tylenol Tab) 650 mg Q6H PRN PO PAIN AND OR ELEVATED TEMP Last administered on 08/27/16 08:59; Admin Dose 650 MG; Start 08/25/16 at 03:00 Ondansetron HCl (Zofran Inj) 4 mg Q6H PRN IV NAUSEA AND/OR VOMITING; Start 08/25 at 03:00 Phenol (Cepastat Lozenge) 1 lozenge Q1H PRN MT SORE THROAT Last administered on 08/25/16 03:27; Admin Dose 1 LOZENGE; Start 08/25/16 at 03:00 Guaifenesin (Robitussin Liquid Cup) 200 mg Q4H PRN PO COUGH Last administered on 08/29/16 06:02; Admin Dose 200 MG; Start 08/25/16 at 03:00 Isoniazid (Isoniazid) 300 mg DAILY PO Last administered on 09/03/16 09:28; Admin Dose 300 MG; Start 08/26/16 at 13:00 Rifampin (Rifampin) 600 mg DAILY PO Last administered on 09/03/16 09:28; Admin Dose 600 MG; Start 08/26/16 at 13:00 Pyrazinamide (Pyrazinamide) 2,000 mg DAILY PO Last administered on 09/03/16 09 :30; Admin Dose 2,000 MG; Start 08/26/16 at 14:00 Nystatin (Nystatin Susp) 5 ml QID PO Last administered on 09/03/16 09:27; Admin Dose 5 ML; Start 08/27/16 at 17:00 Docusate Sodium 200 mg 200 mg BID PO Last administered on 09/03/16 09:28; Admin Dose 200 MG; Start 08/28/16 at 21:00 Ferric Sodium Gluconate Complex/ Sodium Chloride (Ferrlecit/NS) 110 ml @ 110 mls/hr Q24H IVPB Last administered on 09/02/16 12:36; Admin Dose 110 MLS/HR; Start 09/02/16 at 12:00; Stop 09/06/16 at 12:59 Ethambutol HCl (Myambutol) 1,200 mg DAILY PO Last administered on 09/03/16 09: 28; Admin Dose 1,200 MG; Start 09/03/16 at 09:00 Lactobacillus Acidophilus/ Rhamnosus (Culturelle) 1 cap BID PO ; Start 09/03/16 at 11:00 Fish Oil (Fish Oil) 1,000 mg BID PO ; Start 09/03/16 at 11:00 KATERYNA QUIÑONES NP Sep 03, 2016 12:11
[2016-09-03] MEDS: FISH OIL 1,000 MG CAP PO SCH ×2 (12:26→20:23)
[2016-09-03] MEDS: LACTOBACILLUS RHAMNOSUS CAP PO SCH ×2 (12:26→20:23)
[2016-09-03] MEDS: SOD FERRIC GLUC COMPLX 125 MG in SOD CHLORIDE 0.9% 100 ML IVPB SCH (12:40)
[2016-09-03 20:32] VITALS: BP 127/65; RESP 20
[2016-09-04 04:59] LABS: ADD SCAN DIFF NO
[2016-09-04 05:11] LABS: ABNORMAL IP MESSAGE 1; BASOPHIL # 0.1 10^3/ul (0.0-0.1); BASOPHILS % 0.4 % (0.0-2.0); EOSINOPHILS # 0.2 10^3/ul (0.0-0.5); EOSINOPHILS % 1.9 % (0.0-7.0); HEMOGLOBIN 9.1 g/dl (14.0-18.0); LYMPHOCYTES # 1.5 10^3/ul (0.8-2.9); LYMPHOCYTES % 13.4 % (15.0-51.0); MEAN CORPUSCULAR HEMOGLOBIN 20.6 pg (29.0-33.0); MEAN CORPUSCULAR HGB CONC 28.4 g/dl (32.0-37.0); MEAN CORPUSCULAR VOLUME 72.6 fl (82.0-101.0); MEAN PLATELET VOLUME 8.7 fl (7.4-10.4); MONOCYTE # 0.9 10^3/ul (0.3-0.9); MONOCYTES % 7.9 % (0.0-11.0); NEUTROPHIL # 8.7 10^3/ul (1.6-7.5); PLATELET COUNT 715 10^3/UL (140-415); RED BLOOD COUNT 4.41 10^6/ul (4.70-6.10); RED CELL DISTRIBUTION WIDTH 22.3 % (11.5-14.5); WHITE BLOOD COUNT 11.5 10^3/ul (4.8-10.8)
[2016-09-04] MEDS: PANTOPRAZOLE (EC) 40 MG TAB PO SCH (05:37)
[2016-09-04 06:32] LABS: CALCIUM 9.2 mg/dl (8.4-10.2); CREATININE 0.73 mg/dl (0.61-1.24); MAGNESIUM 1.8 mg/dl (1.7-2.5); POTASSIUM 3.4 mmol/L (3.5-5.1)
[2016-09-04 08:14] VITALS: BP 130/69; RESP 18
[2016-09-04] MEDS: DOCUSATE SODIUM 100 MG CAP PO SCH ×2 (08:29→20:55)
[2016-09-04] MEDS: RIFAMPIN 300 MG CAP PO SCH (08:29)
[2016-09-04] MEDS: LACTOBACILLUS RHAMNOSUS CAP PO SCH ×2 (08:30→20:55)
[2016-09-04] MEDS: ISONIAZID 300 MG TAB PO SCH (08:30)
[2016-09-04] MEDS: PYRAZINAMIDE 500 MG TAB PO SCH (08:30)
[2016-09-04] MEDS: ETHAMBUTOL 400 MG TAB PO SCH (08:30)
[2016-09-04] MEDS: NYSTATIN SUSP 5 ML CUP PO SCH ×4 (08:30→20:55)
[2016-09-04] MEDS: FISH OIL 1,000 MG CAP PO SCH ×2 (08:30→20:55)
--- NOTE | 2016-09-04 10:58 | PN ---
Date/Time of Note Date/Time of Note DATE: 09/04/16 TIME: 10:57 Assessment/Plan VTE Prophylaxis VTE Prophylaxis Intervention: ambulation, SCD's Lines/Catheters IV [facility] Saline Lock Urinary Cath still in place: No Assessment/Plan Assessment/Plan 35-year-old male with 1. Miliary tuberculosis 2. Sepsis secondary to #1 3. Iron deficiency anemia 4. Dyslipidemia with low HDL 5. Hypokalemia 6. Reactive thrombocytosis PLAN: * continue treatment plan per LAC and ID * IV iron replacement * high fibre diet with fishoil * replace lytes as indicated * Continue supportive care Subjective 24 Hr Interval Summary Constitutional: improved, no complaints Exam/Review of Systems Vital Signs Vitals Vital Signs Date Time Temp Pulse Resp B/P Pulse Ox O2 Delivery O2 Flow Rate FiO2 09/04/16 08:14 98.0 61 18 130/69 98 08/31/16 20:00 Room Air Intake and Output 09/03/16 09/03/16 09/04/16 15:00 23:00 07:00 Intake Total 110 ml 960 ml 800 ml Balance 110 ml 960 ml 800 ml Exam Constitutional: alert, oriented Psych: no complaints Respiratory: clear to auscultation, normal air movement Cardiovascular: regular rate and rhythm Gastrointestinal: non-tender, soft Musculoskeletal: nl extremities to inspection Extremities: normal pulses Neurological: no gross focal deficits Results Result Diagram: 09/04/16 0430 09/04/16 0430 Results 24 hrs Laboratory Tests Test 09/04/16 04:30 White Blood Count 11.5 #H Red Blood Count 4.41 L Hemoglobin 9.1 L Hematocrit 32.0 L Mean Corpuscular Volume 72.6 L Mean Corpuscular Hemoglobin 20.6 L Mean Corpuscular Hemoglobin Concent 28.4 L Red Cell Distribution Width 22.3 H Platelet Count 715 H Mean Platelet Volume 8.7 Neutrophils % 76.0 Lymphocytes % 13.4 L Monocytes % 7.9 Eosinophils % 1.9 Basophils % 0.4 Nucleated Red Blood Cells % 0.0 Neutrophils # 8.7 H Lymphocytes # 1.5 Monocytes # 0.9 Eosinophils # 0.2 Basophils # 0.1 Nucleated Red Blood Cells # 0.0 Sodium Level 142 Potassium Level 3.4 L Chloride Level 107 Carbon Dioxide Level 26 Anion Gap 12 Blood Urea Nitrogen 7 Creatinine 0.73 Glucose Level 86 Calcium Level 9.2 Magnesium Level 1.8 Medications Medications Current Medications Pantoprazole (Protonix Tab) 40 mg DAILY@06 PO Last administered on 09/04/16 05 :37; Admin Dose 40 MG; Start 08/25/16 at 06:00 Acetaminophen (Tylenol Tab) 650 mg Q6H PRN PO PAIN AND OR ELEVATED TEMP Last administered on 08/27/16 08:59; Admin Dose 650 MG; Start 08/25/16 at 03:00 Ondansetron HCl (Zofran Inj) 4 mg Q6H PRN IV NAUSEA AND/OR VOMITING; Start 08/25 at 03:00 Phenol (Cepastat Lozenge) 1 lozenge Q1H PRN MT SORE THROAT Last administered on 08/25/16 03:27; Admin Dose 1 LOZENGE; Start 08/25/16 at 03:00 Guaifenesin (Robitussin Liquid Cup) 200 mg Q4H PRN PO COUGH Last administered on 08/29/16 06:02; Admin Dose 200 MG; Start 08/25/16 at 03:00 Isoniazid (Isoniazid) 300 mg DAILY PO Last administered on 09/04/16 08:30; Admin Dose 300 MG; Start 08/26/16 at 13:00 Rifampin (Rifampin) 600 mg DAILY PO Last administered on 09/04/16 08:29; Admin Dose 600 MG; Start 08/26/16 at 13:00 Pyrazinamide (Pyrazinamide) 2,000 mg DAILY PO Last administered on 09/04/16 08 :30; Admin Dose 2,000 MG; Start 08/26/16 at 14:00 Nystatin (Nystatin Susp) 5 ml QID PO Last administered on 09/04/16 08:30; Admin Dose 5 ML; Start 08/27/16 at 17:00 Docusate Sodium 200 mg 200 mg BID PO Last administered on 09/04/16 08:29; Admin Dose 200 MG; Start 08/28/16 at 21:00 Ferric Sodium Gluconate Complex/ Sodium Chloride (Ferrlecit/NS) 110 ml @ 110 mls/hr Q24H IVPB Last administered on 09/03/16 12:40; Admin Dose 110 MLS/HR; Start 09/02/16 at 12:00; Stop 09/06/16 at 12:59 Ethambutol HCl (Myambutol) 1,200 mg DAILY PO Last administered on 09/04/16 08: 30; Admin Dose 1,200 MG; Start 09/03/16 at 09:00 Lactobacillus Acidophilus/ Rhamnosus (Culturelle) 1 cap BID PO Last administered on 09/04/16 08:30; Admin Dose 1 CAP; Start 09/03/16 at 11:00 Fish Oil (Fish Oil) 1,000 mg BID PO Last administered on 09/04/16 08:30; Admin Dose 1,000 MG; Start 09/03/16 at 11:00 NADYA HUTCHISON Sep 04, 2016 10:58
[2016-09-04] MEDS ORDERED: POTASSIUM CHLORIDE 250 ML IVPB ONE (11:30)
[2016-09-04] MEDS: SOD FERRIC GLUC COMPLX 125 MG in SOD CHLORIDE 0.9% 100 ML IVPB SCH (11:55)
--- NOTE | 2016-09-04 13:59 | CONS ---
Date/Time of Note Date/Time of Note DATE: 09/04/16 TIME: 13:58 Assessment/Plan Assessment/Plan Chief Complaint/Hosp Course SUBJECTIVE: No acute changes, no fevers, alert, looks comfortable ANTIMICROBIALS: The patient is on Rifampin, Ethambutol, INH, Pyrazinamide PHYSICAL EXAMINATION: GENERAL: This is a well-nourished, well-developed, middle-aged man who is awake, in no distress. HEENT: Head atraumatic, normocephalic. Sclerae anicteric. Buccal mucosa pink. NECK: Supple. CHEST: Rise symmetrical. Breath sounds clear, diminished to bases. HEART: S1, S2. ABDOMEN: Soft, bowel tones present. EXTREMITIES: Without cyanosis. ASSESSMENT: 1. Pulmonary tuberculosis 2. Hypertension. 3. S/p systemic inflammatory response syndrome. PLAN: Clinically stable, continue RIPE, await for sputum AFB by PCR and f/u [facility] rec-s, continue isolation [facility] staff Problems: Consultation Date/Type/Reason Admit Date/Time Aug 25, 2016 at 01:03 Initial Consult Date 08/25/16 Type of Consultation: ID Exam/Review of Systems Vital Signs Vitals Vital Signs Date Time Temp Pulse Resp B/P Pulse Ox O2 Delivery O2 Flow Rate FiO2 09/04/16 08:14 98.0 61 18 130/69 98 08/31/16 20:00 Room Air Intake and Output 09/03/16 09/03/16 09/04/16 15:00 23:00 07:00 Intake Total 110 ml 960 ml 800 ml Balance 110 ml 960 ml 800 ml Results Result Diagram: 09/04/16 0430 09/04/16 0430 Results 24 hrs Laboratory Tests Test 09/04/16 04:30 White Blood Count 11.5 #H Red Blood Count 4.41 L Hemoglobin 9.1 L Hematocrit 32.0 L Mean Corpuscular Volume 72.6 L Mean Corpuscular Hemoglobin 20.6 L Mean Corpuscular Hemoglobin Concent 28.4 L Red Cell Distribution Width 22.3 H Platelet Count 715 H Mean Platelet Volume 8.7 Neutrophils % 76.0 Lymphocytes % 13.4 L Monocytes % 7.9 Eosinophils % 1.9 Basophils % 0.4 Nucleated Red Blood Cells % 0.0 Neutrophils # 8.7 H Lymphocytes # 1.5 Monocytes # 0.9 Eosinophils # 0.2 Basophils # 0.1 Nucleated Red Blood Cells # 0.0 Sodium Level 142 Potassium Level 3.4 L Chloride Level 107 Carbon Dioxide Level 26 Anion Gap 12 Blood Urea Nitrogen 7 Creatinine 0.73 Glucose Level 86 Calcium Level 9.2 Magnesium Level 1.8 Medications Medications Current Medications Pantoprazole (Protonix Tab) 40 mg DAILY@06 PO Last administered on 09/04/16 05 :37; Admin Dose 40 MG; Start 08/25/16 at 06:00 Acetaminophen (Tylenol Tab) 650 mg Q6H PRN PO PAIN AND OR ELEVATED TEMP Last administered on 08/27/16 08:59; Admin Dose 650 MG; Start 08/25/16 at 03:00 Ondansetron HCl (Zofran Inj) 4 mg Q6H PRN IV NAUSEA AND/OR VOMITING; Start 08/25 at 03:00 Phenol (Cepastat Lozenge) 1 lozenge Q1H PRN MT SORE THROAT Last administered on 08/25/16 03:27; Admin Dose 1 LOZENGE; Start 08/25/16 at 03:00 Guaifenesin (Robitussin Liquid Cup) 200 mg Q4H PRN PO COUGH Last administered on 08/29/16 06:02; Admin Dose 200 MG; Start 08/25/16 at 03:00 Isoniazid (Isoniazid) 300 mg DAILY PO Last administered on 09/04/16 08:30; Admin Dose 300 MG; Start 08/26/16 at 13:00 Rifampin (Rifampin) 600 mg DAILY PO Last administered on 09/04/16 08:29; Admin Dose 600 MG; Start 08/26/16 at 13:00 Pyrazinamide (Pyrazinamide) 2,000 mg DAILY PO Last administered on 09/04/16 08 :30; Admin Dose 2,000 MG; Start 08/26/16 at 14:00 Nystatin (Nystatin Susp) 5 ml QID PO Last administered on 09/04/16 13:00; Admin Dose 5 ML; Start 08/27/16 at 17:00 Docusate Sodium 200 mg 200 mg BID PO Last administered on 09/04/16 08:29; Admin Dose 200 MG; Start 08/28/16 at 21:00 Ferric Sodium Gluconate Complex/ Sodium Chloride (Ferrlecit/NS) 110 ml @ 110 mls/hr Q24H IVPB Last administered on 09/04/16 11:55; Admin Dose 110 MLS/HR; Start 09/02/16 at 12:00; Stop 09/06/16 at 12:59 Ethambutol HCl (Myambutol) 1,200 mg DAILY PO Last administered on 09/04/16 08: 30; Admin Dose 1,200 MG; Start 09/03/16 at 09:00 Lactobacillus Acidophilus/ Rhamnosus (Culturelle) 1 cap BID PO Last administered on 09/04/16 08:30; Admin Dose 1 CAP; Start 09/03/16 at 11:00 Fish Oil 1000 mg 1,000 mg BID PO Last administered on 09/04/16 08:30; Admin Dose 1,000 MG; Start 09/03/16 at 11:00 Potassium Chloride (KCl 40 MEQ/250 ML NS) 250 ml @ 62.5 mls/hr ONCE ONCE IVPB Last administered on 09/04/16 13:00; Admin Dose 62.5 MLS/HR; Start 09/04/16 at 11:30; Stop 09/04/16 at 15:29 KATERYNA QUIÑONES NP Sep 04, 2016 13:59
[2016-09-04 21:40] VITALS: BP 124/71; RESP 20
[2016-09-05 05:11] LABS: ADD SCAN DIFF NO
[2016-09-05 05:19] LABS: ABNORMAL IP MESSAGE 1; BASOPHILS % 0.5 % (0.0-2.0); EOSINOPHILS # 0.2 10^3/ul (0.0-0.5); EOSINOPHILS % 2.7 % (0.0-7.0); HEMOGLOBIN 9.4 g/dl (14.0-18.0); LYMPHOCYTES # 1.2 10^3/ul (0.8-2.9); LYMPHOCYTES % 15.6 % (15.0-51.0); MEAN CORPUSCULAR HEMOGLOBIN 21.6 pg (29.0-33.0); MEAN CORPUSCULAR HGB CONC 29.4 g/dl (32.0-37.0); MEAN CORPUSCULAR VOLUME 73.4 fl (82.0-101.0); MEAN PLATELET VOLUME 8.7 fl (7.4-10.4); MONOCYTE # 0.7 10^3/ul (0.3-0.9); MONOCYTES % 8.7 % (0.0-11.0); NEUTROPHIL # 5.7 10^3/ul (1.6-7.5); RED BLOOD COUNT 4.36 10^6/ul (4.70-6.10); RED CELL DISTRIBUTION WIDTH 22.5 % (11.5-14.5); WHITE BLOOD COUNT 7.8 10^3/ul (4.8-10.8)
[2016-09-05 05:35] LABS: PLATELET COUNT 683 10^3/UL (140-415)
[2016-09-05 05:54] LABS: CALCIUM 9.5 mg/dl (8.4-10.2); CREATININE 0.74 mg/dl (0.61-1.24); POTASSIUM 3.6 mmol/L (3.5-5.1)
[2016-09-05] MEDS: PANTOPRAZOLE (EC) 40 MG TAB PO SCH (05:54)
[2016-09-05 08:03] VITALS: BP 123/68; RESP 21
[2016-09-05] MEDS: DOCUSATE SODIUM 100 MG CAP PO SCH ×2 (09:15→22:29)
[2016-09-05] MEDS: LACTOBACILLUS RHAMNOSUS CAP PO SCH ×2 (09:16→22:29)
[2016-09-05] MEDS: FISH OIL 1,000 MG CAP PO SCH ×2 (09:16→22:29)
[2016-09-05] MEDS: ISONIAZID 300 MG TAB PO SCH (09:16)
[2016-09-05] MEDS: ETHAMBUTOL 400 MG TAB PO SCH (09:17)
[2016-09-05] MEDS: RIFAMPIN 300 MG CAP PO SCH (09:17)
[2016-09-05] MEDS: NYSTATIN SUSP 5 ML CUP PO SCH ×4 (09:17→22:29)
[2016-09-05] MEDS: PYRAZINAMIDE 500 MG TAB PO SCH (09:54)
[2016-09-05] MEDS: GUAIFENESIN 20 MG/ML 5ML CUP PO PRN (09:54)
--- NOTE | 2016-09-05 11:08 | PN ---
Date/Time of Note Date/Time of Note DATE: 09/05/16 TIME: 11:06 Assessment/Plan VTE Prophylaxis VTE Prophylaxis Intervention: ambulation, SCD's Lines/Catheters IV [facility]ter [facility] (from [facility] Saline Lock Urinary Cath still in place: No Assessment/Plan Assessment/Plan 35-year-old male with 1. Miliary tuberculosis 2. Sepsis secondary to #1 3. Iron deficiency anemia 4. Dyslipidemia with low HDL 5. Hypokalemia 6. Reactive thrombocytosis PLAN: * continue treatment plan per LAC and ID / 3 new sputum samples obtained q8h / f /u results * IV iron replacement * high fibre diet with fishoil * replace lytes as indicated * Continue supportive care Subjective 24 Hr Interval Summary Free Text/Dictation pt seen no new issues anxiously awaiting discharge Exam/Review of Systems Vital Signs Vitals Vital Signs Date Time Temp Pulse Resp B/P Pulse Ox O2 Delivery O2 Flow Rate FiO2 09/05/16 08:03 98.8 85 21 123/68 100 Intake and Output 09/04/16 09/04/16 09/05/16 15:00 23:00 07:00 Intake Total 110 ml 1050 ml 960 ml Output Total 1000 ml Balance 110 ml 50 ml 960 ml Exam Constitutional: alert, oriented Psych: no complaints Respiratory: clear to auscultation, normal air movement Cardiovascular: regular rate and rhythm Gastrointestinal: non-tender, soft Musculoskeletal: nl extremities to inspection Extremities: normal pulses Neurological: no gross focal deficits Results Result Diagram: 09/05/16 0430 09/05/16 0430 Results 24 hrs Laboratory Tests Test 09/05/16 04:30 White Blood Count 7.8 # Red Blood Count 4.36 L Hemoglobin 9.4 L Hematocrit 32.0 L Mean Corpuscular Volume 73.4 L Mean Corpuscular Hemoglobin 21.6 L Mean Corpuscular Hemoglobin Concent 29.4 L Red Cell Distribution Width 22.5 H Platelet Count 683 H Mean Platelet Volume 8.7 Neutrophils % 72.0 Lymphocytes % 15.6 Monocytes % 8.7 Eosinophils % 2.7 Basophils % 0.5 Nucleated Red Blood Cells % 0.0 Neutrophils # 5.7 Lymphocytes # 1.2 Monocytes # 0.7 Eosinophils # 0.2 Basophils # 0.0 Nucleated Red Blood Cells # 0.0 Sodium Level 144 Potassium Level 3.6 Chloride Level 108 Carbon Dioxide Level 26 Anion Gap 14 Blood Urea Nitrogen 7 Creatinine 0.74 Glucose Level 80 Calcium Level 9.5 Medications Medications Current Medications Pantoprazole (Protonix Tab) 40 mg DAILY@06 PO Last administered on 09/05/16 05 :54; Admin Dose 40 MG; Start 08/25/16 at 06:00 Acetaminophen (Tylenol Tab) 650 mg Q6H PRN PO PAIN AND OR ELEVATED TEMP Last administered on 08/27/16 08:59; Admin Dose 650 MG; Start 08/25/16 at 03:00 Ondansetron HCl (Zofran Inj) 4 mg Q6H PRN IV NAUSEA AND/OR VOMITING; Start 08/25 at 03:00 Phenol (Cepastat Lozenge) 1 lozenge Q1H PRN MT SORE THROAT Last administered on 08/25/16 03:27; Admin Dose 1 LOZENGE; Start 08/25/16 at 03:00 Guaifenesin (Robitussin Liquid Cup) 200 mg Q4H PRN PO COUGH Last administered on 09/05/16 09:54; Admin Dose 200 MG; Start 08/25/16 at 03:00 Isoniazid (Isoniazid) 300 mg DAILY PO Last administered on 09/05/16 09:16; Admin Dose 300 MG; Start 08/26/16 at 13:00 Rifampin (Rifampin) 600 mg DAILY PO Last administered on 09/05/16 09:17; Admin Dose 600 MG; Start 08/26/16 at 13:00 Pyrazinamide (Pyrazinamide) 2,000 mg DAILY PO Last administered on 09/05/16 09 :54; Admin Dose 2,000 MG; Start 08/26/16 at 14:00 Nystatin (Nystatin Susp) 5 ml QID PO Last administered on 09/05/16 09:17; Admin Dose 5 ML; Start 08/27/16 at 17:00 Docusate Sodium 200 mg 200 mg BID PO Last administered on 09/05/16 09:15; Admin Dose 200 MG; Start 08/28/16 at 21:00 Ferric Sodium Gluconate Complex/ Sodium Chloride (Ferrlecit/NS) 110 ml @ 110 mls/hr Q24H IVPB Last administered on 09/04/16 11:55; Admin Dose 110 MLS/HR; Start 09/02/16 at 12:00; Stop 09/06/16 at 12:59 Ethambutol HCl (Myambutol) 1,200 mg DAILY PO Last administered on 09/05/16 09: 17; Admin Dose 1,200 MG; Start 09/03/16 at 09:00 Lactobacillus Acidophilus/ Rhamnosus (Culturelle) 1 cap BID PO Last administered on 09/05/16 09:16; Admin Dose 1 CAP; Start 09/03/16 at 11:00 Fish Oil (Fish Oil) 1,000 mg BID PO Last administered on 09/05/16 09:16; Admin Dose 1,000 MG; Start 09/03/16 at 11:00 NADYA HUTHCISON Sep 05, 2016 11:08
--- NOTE | 2016-09-05 13:01 | CONS ---
Date/Time of Note Date/Time of Note DATE: 09/05/16 TIME: 13:00 Assessment/Plan Assessment/Plan Chief Complaint/Hosp Course SUBJECTIVE: No acute changes, no fevers, alert, looks comfortable ANTIMICROBIALS: The patient is on Rifampin, Ethambutol, INH, Pyrazinamide PHYSICAL EXAMINATION: GENERAL: This is a well-nourished, well-developed, middle-aged man who is awake, in no distress. HEENT: Head atraumatic, normocephalic. Sclerae anicteric. Buccal mucosa pink. NECK: Supple. CHEST: Rise symmetrical. Breath sounds clear, diminished to bases. HEART: S1, S2. ABDOMEN: Soft, bowel tones present. EXTREMITIES: Without cyanosis. ASSESSMENT: 1. Pulmonary tuberculosis 2. Hypertension. 3. S/p systemic inflammatory response syndrome. PLAN: Clinically stable, being followed by ROSHNI Marin, continue RIPE, continue isolation [facility] staff Problems: Consultation Date/Type/Reason Admit Date/Time Aug 25, 2016 at 01:03 Initial Consult Date 08/25/16 Type of Consultation: ID Exam/Review of Systems Vital Signs Vitals Vital Signs Date Time Temp Pulse Resp B/P Pulse Ox O2 Delivery O2 Flow Rate FiO2 09/05/16 08:03 98.8 85 21 123/68 100 Intake and Output 09/04/16 09/04/16 09/05/16 15:00 23:00 07:00 Intake Total 110 ml 1050 ml 960 ml Output Total 1000 ml Balance 110 ml 50 ml 960 ml Results Result Diagram: 09/05/16 0430 09/05/16 0430 Results 24 hrs Laboratory Tests Test 09/05/16 04:30 White Blood Count 7.8 # Red Blood Count 4.36 L Hemoglobin 9.4 L Hematocrit 32.0 L Mean Corpuscular Volume 73.4 L Mean Corpuscular Hemoglobin 21.6 L Mean Corpuscular Hemoglobin Concent 29.4 L Red Cell Distribution Width 22.5 H Platelet Count 683 H Mean Platelet Volume 8.7 Neutrophils % 72.0 Lymphocytes % 15.6 Monocytes % 8.7 Eosinophils % 2.7 Basophils % 0.5 Nucleated Red Blood Cells % 0.0 Neutrophils # 5.7 Lymphocytes # 1.2 Monocytes # 0.7 Eosinophils # 0.2 Basophils # 0.0 Nucleated Red Blood Cells # 0.0 Sodium Level 144 Potassium Level 3.6 Chloride Level 108 Carbon Dioxide Level 26 Anion Gap 14 Blood Urea Nitrogen 7 Creatinine 0.74 Glucose Level 80 Calcium Level 9.5 Medications Medications Current Medications Pantoprazole (Protonix Tab) 40 mg DAILY@06 PO Last administered on 09/05/16 05 :54; Admin Dose 40 MG; Start 08/25/16 at 06:00 Acetaminophen (Tylenol Tab) 650 mg Q6H PRN PO PAIN AND OR ELEVATED TEMP Last administered on 08/27/16 08:59; Admin Dose 650 MG; Start 08/25/16 at 03:00 Ondansetron HCl (Zofran Inj) 4 mg Q6H PRN IV NAUSEA AND/OR VOMITING; Start 08/25 at 03:00 Phenol (Cepastat Lozenge) 1 lozenge Q1H PRN MT SORE THROAT Last administered on 08/25/16 03:27; Admin Dose 1 LOZENGE; Start 08/25/16 at 03:00 Guaifenesin (Robitussin Liquid Cup) 200 mg Q4H PRN PO COUGH Last administered on 09/05/16 09:54; Admin Dose 200 MG; Start 08/25/16 at 03:00 Isoniazid (Isoniazid) 300 mg DAILY PO Last administered on 09/05/16 09:16; Admin Dose 300 MG; Start 08/26/16 at 13:00 Rifampin (Rifampin) 600 mg DAILY PO Last administered on 09/05/16 09:17; Admin Dose 600 MG; Start 08/26/16 at 13:00 Pyrazinamide (Pyrazinamide) 2,000 mg DAILY PO Last administered on 09/05/16 09 :54; Admin Dose 2,000 MG; Start 08/26/16 at 14:00 Nystatin (Nystatin Susp) 5 ml QID PO Last administered on 09/05/16 09:17; Admin Dose 5 ML; Start 08/27/16 at 17:00 Docusate Sodium 200 mg 200 mg BID PO Last administered on 09/05/16 09:15; Admin Dose 200 MG; Start 08/28/16 at 21:00 Ferric Sodium Gluconate Complex/ Sodium Chloride (Ferrlecit/NS) 110 ml @ 110 mls/hr Q24H IVPB Last administered on 09/04/16 11:55; Admin Dose 110 MLS/HR; Start 09/02/16 at 12:00; Stop 09/06/16 at 12:59 Ethambutol HCl (Myambutol) 1,200 mg DAILY PO Last administered on 09/05/16 09: 17; Admin Dose 1,200 MG; Start 09/03/16 at 09:00 Lactobacillus Acidophilus/ Rhamnosus (Culturelle) 1 cap BID PO Last administered on 09/05/16 09:16; Admin Dose 1 CAP; Start 09/03/16 at 11:00 Fish Oil (Fish Oil) 1,000 mg BID PO Last administered on 09/05/16 09:16; Admin Dose 1,000 MG; Start 09/03/16 at 11:00 KATERYNA QUIÑONES NP Sep 05, 2016 13:01
[2016-09-05] MEDS: SOD FERRIC GLUC COMPLX 125 MG in SOD CHLORIDE 0.9% 100 ML IVPB SCH (13:05)
[2016-09-05 22:44] VITALS: BP 127/73; RESP 20
[2016-09-06] MEDS ORDERED: RIFAMPIN 300 MG CAP PO SCH
[2016-09-06] MEDS ORDERED: ISONIAZID 300 MG TAB PO SCH
[2016-09-06] MEDS ORDERED: ETHAMBUTOL 400 MG TAB PO SCH
[2016-09-06] MEDS ORDERED: PYRAZINAMIDE 500 MG TAB PO SCH
[2016-09-06] MEDS: PANTOPRAZOLE (EC) 40 MG TAB PO SCH (05:36)
[2016-09-06 05:58] LABS: ADD SCAN DIFF NO
[2016-09-06 06:25] LABS: ABNORMAL IP MESSAGE 1; BASOPHILS % 0.4 % (0.0-2.0); EOSINOPHILS # 0.2 10^3/ul (0.0-0.5); EOSINOPHILS % 1.9 % (0.0-7.0); HEMATOCRIT 31.6 % (42.0-52.0); HEMOGLOBIN 9.2 g/dl (14.0-18.0); LYMPHOCYTES # 1.2 10^3/ul (0.8-2.9); LYMPHOCYTES % 12.3 % (15.0-51.0); MEAN CORPUSCULAR HEMOGLOBIN 21.4 pg (29.0-33.0); MEAN CORPUSCULAR HGB CONC 29.1 g/dl (32.0-37.0); MEAN CORPUSCULAR VOLUME 73.5 fl (82.0-101.0); MEAN PLATELET VOLUME 8.9 fl (7.4-10.4); MONOCYTE # 0.8 10^3/ul (0.3-0.9); MONOCYTES % 7.6 % (0.0-11.0); NEUTROPHIL # 7.7 10^3/ul (1.6-7.5); NEUTROPHILS % 77.4 % (39.0-77.0); PLATELET COUNT 688 10^3/UL (140-415); RED CELL DISTRIBUTION WIDTH 22.6 % (11.5-14.5)
[2016-09-06 06:59] LABS: CALCIUM 9.6 mg/dl (8.4-10.2); CREATININE 0.71 mg/dl (0.61-1.24); POTASSIUM 3.5 mmol/L (3.5-5.1)
[2016-09-06 07:16] VITALS: BP 121/68; RESP 20
[2016-09-06] MEDS: DOCUSATE SODIUM 100 MG CAP PO SCH ×2 (09:10→20:39)
[2016-09-06] MEDS: FISH OIL 1,000 MG CAP PO SCH ×2 (09:10→20:39)
[2016-09-06] MEDS: ISONIAZID 300 MG TAB PO SCH (09:10)
[2016-09-06] MEDS: NYSTATIN SUSP 5 ML CUP PO SCH ×4 (09:11→20:40)
[2016-09-06] MEDS: LACTOBACILLUS RHAMNOSUS CAP PO SCH ×2 (09:11→20:39)
[2016-09-06] MEDS: PYRAZINAMIDE 500 MG TAB PO SCH (09:11)
[2016-09-06] MEDS: ETHAMBUTOL 400 MG TAB PO SCH (09:11)
[2016-09-06] MEDS: RIFAMPIN 300 MG CAP PO SCH (09:12)
--- NOTE | 2016-09-06 10:15 | PN ---
Date/Time of Note Date/Time of Note DATE: 09/06/16 TIME: 10:14 Assessment/Plan VTE Prophylaxis VTE Prophylaxis Intervention: SCD's Lines/Catheters [facility] Saline Lock Urinary Cath still in place: No Assessment/Plan Assessment/Plan 35-year-old male with 1. Miliary tuberculosis 2. Sepsis secondary to #1 3. Iron deficiency anemia 4. Dyslipidemia with low HDL 5. Hypokalemia 6. Reactive thrombocytosis PLAN: * continue treatment plan per LAC and ID / 3 new sputum samples obtained q8h / f /u results / Day 11 on ripe therapy * IV iron replacement * high fibre diet with fishoil * replace lytes as indicated * Continue supportive care Subjective 24 Hr Interval Summary Constitutional: no complaints Exam/Review of Systems Vital Signs Vitals Vital Signs Date Time Temp Pulse Resp B/P Pulse Ox O2 Delivery O2 Flow Rate FiO2 09/06/16 07:16 99.2 86 20 121/68 94 Intake and Output 09/05/16 09/05/16 09/06/16 15:00 23:00 07:00 Intake Total 110 ml 2160 ml Balance 110 ml 2160 ml Exam GENERAL: Patient is alert, oriented x 3, in no apparent distress; does not appear acutely or chronically ill. Patient is able to sit up unassisted.Patient makes good eye contact, is conversant, interactive, coherent. Patient appears calm and comfortable and is able to follow commands. HEENT: Oropharynx is clear. There is no carotid bruit, no masses. Patient's pupils are equal, round and reactive to light bilaterally. Extraocular motions are intact. There is no scleral icterus. There is no facial asymmetry. NECK: Supple. LUNGS: Clear to auscultation bilaterally with good air entry. No Wheezes or crackles. HEART: S1, S2. No murmur, gallops or rubs. Regular rate and rhythm. ABDOMEN: Soft, nontender. Normoactive bowel sounds. There are no stigmata of chronic liver disease. BACK: no costovertebral angle tenderness. GENITOURINARY: Deferred. EXTREMITIES: No edema. There is no cyanosis, clubbing. There are 2+ pulses bilaterally distally. NEUROLOGIC: The patient has no lateralizing signs. Cranial nerves II-XII are intact. SKIN: Otherwise, unremarkable. Results Result Diagram: 09/06/16 0459 09/06/16 0459 Results 24 hrs Laboratory Tests Test 09/06/16 04:59 White Blood Count 10.0 # Red Blood Count 4.30 L Hemoglobin 9.2 L Hematocrit 31.6 L Mean Corpuscular Volume 73.5 L Mean Corpuscular Hemoglobin 21.4 L Mean Corpuscular Hemoglobin Concent 29.1 L Red Cell Distribution Width 22.6 H Platelet Count 688 H Mean Platelet Volume 8.9 Neutrophils % 77.4 H Lymphocytes % 12.3 L Monocytes % 7.6 Eosinophils % 1.9 Basophils % 0.4 Nucleated Red Blood Cells % 0.0 Neutrophils # 7.7 H Lymphocytes # 1.2 Monocytes # 0.8 Eosinophils # 0.2 Basophils # 0.0 Nucleated Red Blood Cells # 0.0 Sodium Level 143 Potassium Level 3.5 Chloride Level 108 Carbon Dioxide Level 26 Anion Gap 13 Blood Urea Nitrogen 6 L Creatinine 0.71 Glucose Level 81 Calcium Level 9.6 Medications Medications Current Medications Pantoprazole (Protonix Tab) 40 mg DAILY@06 PO Last administered on 09/06/16 05 :36; Admin Dose 40 MG; Start 08/25/16 at 06:00 Acetaminophen (Tylenol Tab) 650 mg Q6H PRN PO PAIN AND OR ELEVATED TEMP Last administered on 08/27/16 08:59; Admin Dose 650 MG; Start 08/25/16 at 03:00 Ondansetron HCl (Zofran Inj) 4 mg Q6H PRN IV NAUSEA AND/OR VOMITING; Start 08/25 at 03:00 Phenol (Cepastat Lozenge) 1 lozenge Q1H PRN MT SORE THROAT Last administered on 08/25/16 03:27; Admin Dose 1 LOZENGE; Start 08/25/16 at 03:00 Guaifenesin (Robitussin Liquid Cup) 200 mg Q4H PRN PO COUGH Last administered on 09/05/16 09:54; Admin Dose 200 MG; Start 08/25/16 at 03:00 Isoniazid (Isoniazid) 300 mg DAILY PO Last administered on 09/06/16 09:10; Admin Dose 300 MG; Start 08/26/16 at 13:00 Rifampin (Rifampin) 600 mg DAILY PO Last administered on 09/06/16 09:12; Admin Dose 600 MG; Start 08/26/16 at 13:00 Pyrazinamide (Pyrazinamide) 2,000 mg DAILY PO Last administered on 09/06/16 09 :11; Admin Dose 2,000 MG; Start 08/26/16 at 14:00 Nystatin (Nystatin Susp) 5 ml QID PO Last administered on 09/06/16 09:11; Admin Dose 5 ML; Start 08/27/16 at 17:00 Docusate Sodium 200 mg 200 mg BID PO Last administered on 09/06/16 09:10; Admin Dose 200 MG; Start 08/28/16 at 21:00 Ferric Sodium Gluconate Complex/ Sodium Chloride (Ferrlecit/NS) 110 ml @ 110 mls/hr Q24H IVPB Last administered on 09/05/16 13:05; Admin Dose 110 MLS/HR; Start 09/02/16 at 12:00; Stop 09/06/16 at 12:59 Ethambutol HCl (Myambutol) 1,200 mg DAILY PO Last administered on 09/06/16 09: 11; Admin Dose 1,200 MG; Start 09/03/16 at 09:00 Lactobacillus Acidophilus/ Rhamnosus (Culturelle) 1 cap BID PO Last administered on 09/06/16 09:11; Admin Dose 1 CAP; Start 09/03/16 at 11:00 Fish Oil (Fish Oil) 1,000 mg BID PO Last administered on 09/06/16 09:10; Admin Dose 1,000 MG; Start 09/03/16 at 11:00 NADYA HUTCHISON Sep 06, 2016 10:15
[2016-09-06] MEDS ORDERED: POTASSIUM CHLORIDE (SR) 20 MEQ TAB PO SCH (10:30)
[2016-09-06] MEDS: SOD FERRIC GLUC COMPLX 125 MG in SOD CHLORIDE 0.9% 100 ML IVPB SCH (11:50)
[2016-09-06 13:25] LABS: ALBUMIN 4.1 g/dl (3.3-4.9); BILIRUBIN,INDIRECT 0.1 mg/dl (0-1.1); BILIRUBIN,TOTAL 0.1 mg/dl (0.2-1.3); TOTAL PROTEIN 5.8 g/dl (6.1-8.1)
--- NOTE | 2016-09-06 17:30 | RADRPT ---
PROCEDURE: XR Chest. CLINICAL INDICATION: Shortness of breath. TECHNIQUE: Single frontal view. COMPARISON: 08/24/2016. FINDINGS: Extensive bilateral patchy pneumonia with left worse than right is unchanged. There is volume loss on the left as seen previously. The heart size is normal. There is no pleural effusion. There is no pneumothorax. IMPRESSION: 1. No change from 08/24/2016. RPTAT: QQ .Abel Tellez MD, MD Date Time Electronically viewed and signed by .Abel Tellez MD, MD on 09/06/2016 17:30 .R/
[2016-09-06] MEDS ORDERED: ISON300T72 PO (18:44)
[2016-09-06] MEDS ORDERED: PYRA500T21 PO (18:44)
[2016-09-06] MEDS ORDERED: RIF120L PO (18:44)
[2016-09-06] MEDS ORDERED: ETHA400T25 PO (18:44)
[2016-09-06] MEDS ORDERED: OMEG1CAP55 PO (18:44)
[2016-09-06] MEDS ORDERED: LACT1CAP57 PO (18:44)
[2016-09-06] MEDS ORDERED: NYST1000 PO (18:44)
[2016-09-06] MEDS ORDERED: PYRI50TA14 PO (18:50)
--- NOTE | 2016-09-06 18:50 | PDOCDIS ---
Discharge Instructions DIAGNOSIS Discharge Diagnosis: tuberculosis CONDITION Patient Condition: Stable HOME CARE INSTRUCTIONS: Special Diet: REGULAR ACTIVITY: Activity Restrictions: Special Exercises Activity Restrictions Comment: Patient is to [id number] on respiratory isolation FOLLOW UP/APPOINTMENTS Appointments See attached [facility] discharge instruction sheet. . OTHER ORDERS: Other Orders: * You are being discharged on isolation, you should remain at home and stay away from public spaces including walkways, schools, tenriism, stores, restaurants ,markets or the public places. * Avoid using public transportation including buses, taxis, airplanes, trains or others until cleared by the [facility] department. * If from the [facility] physician or nurse of any appointments that required leaving home. * Take all medications as prescribed and inform the [facility] physician and nurse about any side effects you experience. * Keep all scheduled appointments at the Medical Center. * Please cooperate with the [facility] staff and monitoring of compliance with home isolation. * If you have any questions please contact the [facility] department. NADYA HUTCHISON Sep 06, 2016 18:50
--- NOTE | 2016-09-06 19:00 | DS ---
Date/Time of Note Date/Time of Note DATE: 09/06/16 TIME: 18:56 Discharge Summary Admission/Discharge Info Admit Date/Time Aug 25, 2016 at 01:03 Discharge Date/Time September 06, 2016 . Final Diagnosis 1. Miliary tuberculosis 2. Sepsis secondary to #1: resolved 3. Iron deficiency anemia: s/p IV iron infusion 4. Dyslipidemia with low HDL 5. Hypokalemia: Replenished 6. Reactive thrombocytosis Patient Condition: Stable Consults Pulmonary Infectious disease . Hospital Course This is a 35-year-old male who had presented August 25, 2016 with fever and cough I was found to be septic secondary to pneumonia which was found to be associated with pulmonary tuberculosis. He was started on ripe therapy and [facility] was got involved in his management. He was kept in-house until cleared for discharge by the [facility]. Chart his hospitalization he was in respiratory isolation precautions. Comorbidities were managed as per medical records and includes dyslipidemia with low HDL, recurrent hypokalemia, oral thrush. For details please review the patient's chart. Patient is being discharged home in stable condition at this time after being cleared by the public health department of [facility]. . Home Meds Active Scripts Pyridoxine Hcl* (Pyridoxine Hcl*) 50 Mg Tablet, 50 MG PO DAILY for 7 Days, TAB Prov:NADYA HUTCHISON. 09/06/16 Lactobacillus Rhamnosus* (Culturelle*) 1 Each Cap.sprink, 1 CAP PO BID for 30 Days, CAP Prov:FOSTERNADYA. 09/06/16 [place]-3/Dha/Epa/Fish Oil (FISH OIL EC 1,000 MG SOFTGEL) 1 Each Capsule.dr, 1000 MG PO BID for 30 Days, 1 Refill Prov:FOSTERNADYA. 09/06/16 Nystatin (Nystatin) 100,000 Unit/1 Ml Oral.susp, 5 ML PO QID for 7 Days Prov:NADYA HUTCHISON 09/06/16 Rifampin* (Rifampin* Pediatric IV Syringe) 10 Mg/Ml Susp, 600 MG PO DAILY for 7 Days Prov:NADYA HUTCHISON. 09/06/16 Pyrazinamide (PYRAZINAMIDE) 500 Mg Tab, 2000 MG PO DAILY for 7 Days, TAB Prov:NADYA HUTCHISON 09/06/16 Isoniazid* (Isoniazid*) 300 Mg Tablet, 300 MG PO DAILY for 7 Days, TAB Prov:NADYA HUTCHISON. 09/06/16 Ethambutol HCl* (Myambutol*) 400 Mg Tablet, 1200 MG PO DAILY for 7 Days, TAB Prov:NADYA HUTCHISON. 09/06/16 Follow-up Plan Discharge instructions, and counseling on need for isolation and medication compliance were given in detail. Patient is to follow-up within a week at [facility]. This information has been given to him on a discharge instruction sheet obtained from [facility]. . Primary Care Provider Not On Staff Doctor Time spent on discharge: > 30 minutes Pending Labs Laboratory Tests Test 09/06/16 04:59 09/06/16 11:59 White Blood Count 10.010^3/ul (4.8-10.8) Red Blood Count 4.3010^6/ul (4.70-6.10) Hemoglobin 9.2g/dl (14.0-18.0) Hematocrit 31.6% (42.0-52.0) Mean Corpuscular Volume 73.5fl (82.0-101.0) Mean Corpuscular Hemoglobin 21.4pg (29.0-33.0) Mean Corpuscular Hemoglobin Concent 29.1g/dl (32.0-37.0) Red Cell Distribution Width 22.6% (11.5-14.5) Platelet Count 94923^3/UL (140-415) Mean Platelet Volume 8.9fl (7.4-10.4) Neutrophils % 77.4% (39.0-77.0) Lymphocytes % 12.3% (15.0-51.0) Monocytes % 7.6% (0.0-11.0) Eosinophils % 1.9% (0.0-7.0) Basophils % 0.4% (0.0-2.0) Nucleated Red Blood Cells % 0.0/100WBC (0.0-0.0) Neutrophils # 7.710^3/ul (1.6-7.5) Lymphocytes # 1.210^3/ul (0.8-2.9) Monocytes # 0.810^3/ul (0.3-0.9) Eosinophils # 0.210^3/ul (0.0-0.5) Basophils # 0.010^3/ul (0.0-0.1) Nucleated Red Blood Cells # 0.010^3/ul (0.0-0.0) Sodium Level 143mmol/L (135-144) Potassium Level 3.5mmol/L (3.5-5.1) Chloride Level 108mmol/L (97-110) Carbon Dioxide Level 26mmol/L (21-31) Anion Gap 13 (8-16) Blood Urea Nitrogen 6mg/dl (7-20) Creatinine 0.71mg/dl (0.61-1.24) Glucose Level 81mg/dl (70-220) Calcium Level 9.6mg/dl (8.4-10.2) Total Bilirubin 0.1mg/dl (0.2-1.3) Direct Bilirubin 0.00mg/dl (0.00-0.20) Indirect Bilirubin 0.1mg/dl (0-1.1) Aspartate Amino Transf (AST/SGOT) 19IU/L (15-46) Alanine Aminotransferase (ALT/SGPT) 28IU/L (13-69) Alkaline Phosphatase 111IU/L (42-121) Total Protein 5.8g/dl (6.1-8.1) Albumin 4.1g/dl (3.3-4.9) Lab Scanned Report [id number] NADYA HUTCHISON Sep 06, 2016 19:00
[2016-09-06 20:06] VITALS: BP 141/81; RESP 18
--- NOTE | 2016-09-06 20:58 | CONS ---
Date/Time of Note Date/Time of Note DATE: 09/06/16 TIME: 20:57 Assessment/Plan Assessment/Plan Chief Complaint/Hosp Course SUBJECTIVE: No acute changes, no fevers, alert, looks comfortable ANTIMICROBIALS: The patient is on Rifampin, Ethambutol, INH, Pyrazinamide PHYSICAL EXAMINATION: GENERAL: This is a well-nourished, well-developed, middle-aged man who is awake, in no distress. HEENT: Head atraumatic, normocephalic. Sclerae anicteric. Buccal mucosa pink. NECK: Supple. CHEST: Rise symmetrical. Breath sounds clear, diminished to bases. HEART: S1, S2. ABDOMEN: Soft, bowel tones present. EXTREMITIES: Without cyanosis. ASSESSMENT: 1. Pulmonary tuberculosis 2. Hypertension. 3. S/p systemic inflammatory response syndrome. PLAN: Clinically stable, being followed by ROSHNI Marin wnl, continue RIPE, continue isolation, f/u [employer] [facility] staff Problems: Consultation Date/Type/Reason Admit Date/Time Aug 25, 2016 at 01:03 Initial Consult Date 08/25/16 Type of Consultation: ID Exam/Review of Systems Vital Signs Vitals Vital Signs Date Time Temp Pulse Resp B/P Pulse Ox O2 Delivery O2 Flow Rate FiO2 09/06/16 20:06 98.1 107 18 141/81 96 Intake and Output 09/05/16 09/05/16 09/06/16 15:00 23:00 07:00 Intake Total 110 ml 2160 ml Balance 110 ml 2160 ml Results Result Diagram: 09/06/16 0459 09/06/16 0459 Results 24 hrs Laboratory Tests Test 09/06/16 04:59 09/06/16 11:59 White Blood Count 10.0 # Red Blood Count 4.30 L Hemoglobin 9.2 L Hematocrit 31.6 L Mean Corpuscular Volume 73.5 L Mean Corpuscular Hemoglobin 21.4 L Mean Corpuscular Hemoglobin Concent 29.1 L Red Cell Distribution Width 22.6 H Platelet Count 688 H Mean Platelet Volume 8.9 Neutrophils % 77.4 H Lymphocytes % 12.3 L Monocytes % 7.6 Eosinophils % 1.9 Basophils % 0.4 Nucleated Red Blood Cells % 0.0 Neutrophils # 7.7 H Lymphocytes # 1.2 Monocytes # 0.8 Eosinophils # 0.2 Basophils # 0.0 Nucleated Red Blood Cells # 0.0 Sodium Level 143 Potassium Level 3.5 Chloride Level 108 Carbon Dioxide Level 26 Anion Gap 13 Blood Urea Nitrogen 6 L Creatinine 0.71 Glucose Level 81 Calcium Level 9.6 Total Bilirubin 0.1 L Direct Bilirubin 0.00 Indirect Bilirubin 0.1 Aspartate Amino Transf (AST/SGOT) 19 Alanine Aminotransferase (ALT/SGPT) 28 Alkaline Phosphatase 111 Total Protein 5.8 L Albumin 4.1 Lab Scanned Report [facility] Medications Medications Current Medications Pantoprazole (Protonix Tab) 40 mg DAILY@06 PO Last administered on 09/06/16 05 :36; Admin Dose 40 MG; Start 08/25/16 at 06:00 Acetaminophen (Tylenol Tab) 650 mg Q6H PRN PO PAIN AND OR ELEVATED TEMP Last administered on 08/27/16 08:59; Admin Dose 650 MG; Start 08/25/16 at 03:00 Ondansetron HCl (Zofran Inj) 4 mg Q6H PRN IV NAUSEA AND/OR VOMITING; Start 08/25 at 03:00 Phenol (Cepastat Lozenge) 1 lozenge Q1H PRN MT SORE THROAT Last administered on 08/25/16 03:27; Admin Dose 1 LOZENGE; Start 08/25/16 at 03:00 Guaifenesin (Robitussin Liquid Cup) 200 mg Q4H PRN PO COUGH Last administered on 09/05/16 09:54; Admin Dose 200 MG; Start 08/25/16 at 03:00 Isoniazid (Isoniazid) 300 mg DAILY PO Last administered on 09/06/16 09:10; Admin Dose 300 MG; Start 08/26/16 at 13:00 Rifampin (Rifampin) 600 mg DAILY PO Last administered on 09/06/16 09:12; Admin Dose 600 MG; Start 08/26/16 at 13:00 Pyrazinamide (Pyrazinamide) 2,000 mg DAILY PO Last administered on 09/06/16 09 :11; Admin Dose 2,000 MG; Start 08/26/16 at 14:00 Nystatin (Nystatin Susp) 5 ml QID PO Last administered on 09/06/16 20:40; Admin Dose 5 ML; Start 08/27/16 at 17:00 Docusate Sodium (Colace) 200 mg BID PO Last administered on 09/06/16 20:39; Admin Dose 200 MG; Start 08/28/16 at 21:00 Ethambutol HCl (Myambutol) 1,200 mg DAILY PO Last administered on 09/06/16 09: 11; Admin Dose 1,200 MG; Start 09/03/16 at 09:00 Lactobacillus Acidophilus/ Rhamnosus (Culturelle) 1 cap BID PO Last administered on 09/06/16 20:39; Admin Dose 1 CAP; Start 09/03/16 at 11:00 Fish Oil (Fish Oil) 1,000 mg BID PO Last administered on 09/06/16 20:39; Admin Dose 1,000 MG; Start 09/03/16 at 11:00 Potassium Chloride (Klor-Con 20) 20 meq DAILY PO Last administered on 11:49; Admin Dose 20 MEQ; Start 09/06/16 at 10:30 Ethambutol HCl (Myambutol) 1,200 mg DAILY PO ; Start 09/06/16 at 00:00; Stop at 23:59; Status No refill Isoniazid (Isoniazid) 300 mg DAILY PO ; Start 09/06/16 at 00:00; Stop 09/12/16 at 23:59; Status No refill Pyrazinamide (Pyrazinamide) 2,000 mg DAILY PO ; Start 09/06/16 at 00:00; Stop at 23:59; Status No refill Rifampin (Rifampin) 600 mg DAILY PO ; Start 09/06/16 at 00:00; Stop 09/12/16 at 23:59; Status No refill KATERYNA QUIÑONES NP Sep 06, 2016 20:58
== END 2016-09-06 21:06 | disposition home or self-care (01) | DRG 871 ==
LOC: FTE 21:04 → MS1 08-25 01:03
PROVIDERS: ADMIT Hospitalist; ATTEND Hospitalist
PROC: 30233N1 Transfusion of Nonautologous Red Blood Cells into Peripheral Vein, Percutaneous Approach (ICD-10-PCS; principal; 2016-08-25)
DX: A41.9 Sepsis, unspecified organism (principal); A19.9 Miliary tuberculosis, unspecified; B37.0 Candidal stomatitis; D50.9 Iron deficiency anemia, unspecified; E78.5 Hyperlipidemia, unspecified; E87.6 Hypokalemia; I10 Essential (primary) hypertension
CPT/HCPCS: 36430; 71010; 71250; 80048; 80053; 80061; 80076; 80202; 80307; 81001; 82105; 82270; 82378; 83036; 83540; 83605; 83735; 84100; 84484; 85025; 85610; 85730; 86301; 86304; 86480; 86635; 86703; 86850; 86900; 86901; 86920; 87040; 87070; 87086; 87116; 87556; 93005; 94640; 94664; J0456; J0696; J1956; J2543; J2916; J3370; J3480; J7030; J7040; J7050; P9016

== ENCOUNTER 2017-05-25 09:24 | Emergency (ER) | END 2017-05-25 11:26 | disposition home or self-care (01) ==